=== PATIENT | male | born 1975 | race American Indian/Alaskan Native ===

== ENCOUNTER 2016-08-28 00:09 | Emergency (ER) | payer SELFPAY ==
--- NOTE | 2016-08-28 01:03 | Ultrasound Report ---
FINAL REPORT PROCEDURE: US TESTICULAR DOPPLER COMP TECHNIQUE: Real-time henson-scale and color flow Doppler sonography in multiple planes of the scrotum, testicles, and epididymes was performed. Velocity spectral waveform analysis Doppler imaging of the arterial inflow and venous outflow of the testicles was performed with image documentation. CPT 80558 and 43021 HISTORY: TESTICULAR PAIN COMPARISON: No prior studies are available for comparison. FINDINGS: RIGHT TESTICLE: Size: 3.8 x 1.8 x 3.0 cm . Appearance: Normal size and echotexture . Arterial blood flow: Normal spectral waveforms, flow velocities and color flow images.. Venous blood flow: Normal spectral waveforms and color flow images. Right epididymis: Normal size and echotexture . Hydrocele: None . LEFT TESTICLE Size: 4 x 2.8 x 2.6 cm . Appearance: Normal size and echotexture . Arterial blood flow: Normal spectral waveforms, flow velocities and color flow images.. Venous blood flow: Normal spectral waveforms and color flow images. Leftepididymis: Left epididymis is enlarged and heterogeneous suggesting epididymitis.. Hydrocele: There is a moderate left hydrocele.. IMPRESSION: There is no testicular torsion, orchitis or mass. Blood flow is normal. There is enlargement and hyperemia of the left epididymis and there is a left hydrocele suggesting left epididymitis.
[2016-08-28] MEDS ORDERED: TYLENOL PO ONE (01:25)
[2016-08-28] MEDS ORDERED: TYLENOL ONE (01:26)
--- NOTE | 2016-08-28 09:49 | Emergency Department Report ---
ED General Adult HPI - General Chief complaint: Urogenital-Male Stated complaint: GROIN PAIN Time Seen by Provider: 08/28/16 09:45 Source: patient Mode of arrival: Wheelchair Limitations: No Limitations - History of Present Illness Initial comments: The patient reports left testicular swelling for at least one week. This is his first medical encounter. He feels as if he might of had a fever but did not take his temperature. He reports no difficulty in urinating or any urethral discharge. He states he's not had anything like this before. -: Gradual Location: genitals, left Radiation: non-radiation Quality: aching Consistency: constant Improves with: none Worsens with: none Associated Symptoms: denies other symptoms Treatments Prior to Arrival: none - Related Data Previous Rx's Medication Instructions Recorded Last Taken Type Doxycycline [Vibramycin CAP] 100 mg PO Q12HR #20 capsule 08/28/16 Unknown Rx HYDROcodone/APAP 5-325 [Clyde 1 each PO Q4HR PRN #10 tablet 08/28/16 Unknown Rx 5/325] Allergies Allergy/AdvReac Type Severity Reaction Status Date / Time No Known Allergies Allergy Unverified 09/12/13 13:49 ED Review of Systems ROS: Stated complaint: GROIN PAIN Other details as noted in HPI Constitutional: denies: chills, fever Eyes: denies: eye pain, eye discharge, vision change ENT: denies: ear pain, throat pain Respiratory: denies: cough, shortness of breath, wheezing Cardiovascular: denies: chest pain, palpitations Endocrine: no symptoms reported Gastrointestinal: denies: abdominal pain, nausea, diarrhea Genitourinary: denies: urgency, dysuria Musculoskeletal: denies: back pain, joint swelling, arthralgia Skin: denies: rash, lesions Neurological: denies: headache, weakness, paresthesias Psychiatric: denies: anxiety, depression Hematological/Lymphatic: denies: easy bleeding, easy bruising ED Past Medical Hx - Past Medical History Previous Medical History?: Yes Hx Asthma: Yes Additional medical history: Right wrist fx. - Surgical History Past Surgical History?: Yes Additional Surgical History: Umbilical hernia - Social History Smoking Status: Current Every Day Smoker Substance Use Type: None - Medications Home Medications: Home Medications Medication Instructions Recorded Confirmed Last Taken Type Doxycycline [Vibramycin CAP] 100 mg PO Q12HR #20 capsule 06/10/17 Unknown Rx HYDROcodone/APAP 5-325 [Clyde 1 each PO Q4HR PRN #10 tablet 08/28/16 Unknown Rx 5/325] ED Physical Exam - General Limitations: No Limitations General appearance: alert, in no apparent distress - Head Head exam: Present: atraumatic, normocephalic - Eye Eye exam: Present: normal appearance. Absent: scleral icterus - ENT ENT exam: Present: normal exam, mucous membranes moist - Neck Neck exam: Present: normal inspection - Respiratory Respiratory exam: Present: normal lung sounds bilaterally. Absent: respiratory distress - Cardiovascular Cardiovascular Exam: Present: regular rate, normal rhythm. Absent: systolic murmur, diastolic murmur, rubs, gallop - GI/Abdominal GI/Abdominal exam: Present: soft, normal bowel sounds. Absent: distended, tenderness, guarding, rebound, rigid - Rectal Rectal exam: Present: deferred - exam: Present: testicular tenderness (epididymal swelling on the left about 2 +. Nothing fluctuant. Scrotum normal.) External exam: Present: normal external exam - Extremities Exam Extremities exam: Present: normal inspection - Back Exam Back exam: Present: normal inspection. Absent: CVA tenderness (R), CVA tenderness (L) - Neurological Exam Neurological exam: Present: alert, oriented X3, CN II-XII intact. Absent: motor sensory deficit - Psychiatric Psychiatric exam: Present: normal affect, normal mood - Skin Skin exam: Present: warm, dry, intact, normal color. Absent: rash ED Course Vital Signs 08/28/16 08/28/16 08/28/16 00:17 03:36 08:25 Temperature 98.5 F 97.6 F 97.5 F L Pulse Rate 86 81 93 H Respiratory 18 18 18 Rate Blood Pressure 129/85 132/96 136/84 Blood Pressure [Left] O2 Sat by Pulse 97 96 98 Oximetry 08/28/16 08/28/16 09:00 09:01 Temperature 97.6 F Pulse Rate 72 Respiratory 18 Rate Blood Pressure Blood Pressure 132/81 [Left] O2 Sat by Pulse 99 99 Oximetry ED Medical Decision Making - Radiology Data Radiology results: report reviewed Critical care attestation.: If time is entered above; I have spent that time in minutes in the direct care of this critically ill patient, excluding procedure time. ED Disposition Clinical Impression: Epididymitis, left Disposition: DC-01 TO HOME OR SELFCARE Is pt being admited?: No Does the pt Need Aspirin: No Condition: Stable Instructions: Epididymitis (ED) Additional Instructions: Return any acute change or worsening symptoms. Referral to urology. Follow-up with them. Prescriptions: Doxycycline [Vibramycin CAP] 100 mg PO Q12HR #20 capsule HYDROcodone/APAP 5-325 [Clyde 5/325] 1 each PO Q4HR PRN #10 tablet PRN Reason: Pain Referrals: PRIMARY CARE,MD [Primary Care Provider] - 3-5 Days Forms: STI Treatment and Prevention Time of Disposition: 10:21
[2016-08-28] MEDS ORDERED: TORADOL IM ONE (09:58)
[2016-08-28] MEDS ORDERED: XYLOCAINE 1% MPF 5 mL INFILTRATI ONE (09:58)
[2016-08-28] MEDS ORDERED: ROCEPHIN IM ONE (09:58)
[2016-08-28 11:32] VITALS: BP 109/68
== END 2016-08-28 11:33 | disposition home or self-care (01) ==
LOC: ED 00:09
DX: N45.1 Epididymitis (principal); J45.909 Unspecified asthma, uncomplicated; F17.200 Nicotine dependence, unspecified, uncomplicated
CPT/HCPCS: 93975; 96372; 99284; J0696; J1885

== ENCOUNTER 2017-10-01 00:12 | Inpatient (IN) | payer OTHER ==
--- NOTE | 2017-10-01 00:34 | Emergency Department Report ---
ED Neuro Deficit HPI - General Chief Complaint: Neuro Symptoms/Deficit Stated Complaint: POSS STROKE Time Seen by Provider: 10/01/17 00:25 Source: patient, EMS Mode of arrival: Stretcher Limitations: Physical Limitation - History of Present Illness Initial Comments: Patient is a 42-year-old male that presents to emergency room with complaints of right-sided weakness and right-sided numbness 19 hours. Last known well time at 5 AM on 09/30/17. Patient states that he was nauseous and vomiting for approximately an hour before symptoms started. Patient left work and went home and tried to sleep it off. When patient woke up this evening patient is still unable to move his right side normally. Patient denies chest pain and shortness of breath. Patient denies fever and chills. c/o abd pain -: Sudden Location: right arm, right leg Presenting Symptoms: Present: Weak/Paralyzed One Side History of same: No Place: home, work Severity: severe Quality: weak, numb, tingling, constant Improves With: none Worsens With: none On Anticoagulants: No Context: sudden onset Associated Symptoms: loss of appetite, malise, nausea/vomiting, vertigo. denies : confusion, chest pain, cough, diaphoresis, fever/chills, headaches, seizures, shortness of breath, syncope, weakness Treatments Prior to Arrival: none - Related Data Allergies/Adverse Reactions: Allergies Allergy/AdvReac Type Severity Reaction Status Date / Time No Known Allergies Allergy Unverified 09/12/13 13:49 ED Review of Systems ROS: Stated complaint: POSS STROKE Other details as noted in HPI Constitutional: denies: chills, fever Eyes: denies: eye pain, eye discharge, vision change ENT: denies: ear pain, throat pain Respiratory: denies: cough, shortness of breath, wheezing Cardiovascular: denies: chest pain, palpitations Endocrine: no symptoms reported Gastrointestinal: abdominal pain, nausea, vomiting. denies: diarrhea Genitourinary: denies: urgency, dysuria Musculoskeletal: denies: back pain, joint swelling, arthralgia Skin: denies: rash, lesions Neurological: denies: headache, weakness, paresthesias Psychiatric: denies: anxiety, depression Hematological/Lymphatic: denies: easy bleeding, easy bruising ED Past Medical Hx - Past Medical History Previous Medical History?: Yes Hx Asthma: Yes Additional medical history: Right wrist fx. - Surgical History Past Surgical History?: Yes Additional Surgical History: Umbilical hernia, testicular torsion 2016 - Social History Smoking Status: Current Every Day Smoker Substance Use Type: Marijuana ED Neuro Physical Exam - General Limitations: Physical Limitation General appearance: alert, in no apparent distress Suspected Stroke: Yes - Head Head exam: Present: atraumatic, normocephalic - Eye Eye exam: Present: normal appearance, PERRL, EOMI Pupils: Present: normal accommodation - ENT ENT exam: Present: mucous membranes dry - Neck Neck exam: Present: normal inspection - Respiratory Respiratory exam: Present: normal lung sounds bilaterally. Absent: respiratory distress - Cardiovascular Cardiovascular Exam: Present: regular rate, normal rhythm. Absent: systolic murmur, diastolic murmur, rubs, gallop - GI/Abdominal GI/Abdominal exam: Present: soft, normal bowel sounds - Rectal Rectal exam: Present: deferred - Extremities Exam Extremities exam: Present: normal inspection - Back Exam Back exam: Present: normal inspection - Neurological Exam Neurological exam: Present: alert, oriented X3 - NIHSS Assessment Interval: Baseline 1a. Level of Consciousness: alert 1b. LOC Questions: answers correctly 1c. LOC Commands: performs tasks correctly 2. Best Gaze: normal 3. Visual: no visual loss 4. Facial Palsy: normal symmetrical movement 5b. Motor Arm Right: drift 5a. Motor Arm Left: no drift 6a. Motor Leg Left: no drift 6b. Motor Leg Right: drift 7. Limb Ataxia: absent 8. Sensory: mild/moderate sensory loss 9. Best Language: no aphasia 10. Dysarthria: normal 11. Extinction/Inattention: no abnormality Total Score: 3 Stroke Severity: Minor Stroke - Psychiatric Psychiatric exam: Present: normal affect, normal mood - Skin Skin exam: Present: warm, dry, intact, normal color. Absent: rash ED Course Vital Signs 10/01/17 10/01/17 10/01/17 00:00 00:15 00:16 Temperature 98 F Pulse Rate 74 55 L Respiratory 17 20 Rate Blood Pressure 132/89 132/89 O2 Sat by Pulse 97 97 97 Oximetry 10/01/17 10/01/17 10/01/17 00:30 00:46 01:00 Temperature Pulse Rate 54 L 58 L 59 L Respiratory 14 19 16 Rate Blood Pressure 132/89 137/63 137/63 O2 Sat by Pulse 100 96 98 Oximetry 10/01/17 10/01/17 10/01/17 01:16 01:27 01:30 Temperature Pulse Rate 54 L 54 L Respiratory 13 15 9 L Rate Blood Pressure 137/63 129/68 O2 Sat by Pulse 99 97 97 Oximetry 10/01/17 10/01/17 10/01/17 02:05 02:16 02:30 Temperature Pulse Rate 53 L 52 L Respiratory 18 25 H Rate Blood Pressure 129/68 131/80 126/77 O2 Sat by Pulse 98 99 99 Oximetry 10/01/17 10/01/17 10/01/17 02:46 03:00 03:16 Temperature Pulse Rate 61 58 L 62 Respiratory 15 11 L 16 Rate Blood Pressure 126/77 126/77 141/81 O2 Sat by Pulse 100 100 96 Oximetry 10/01/17 10/01/17 10/01/17 03:30 03:46 04:00 Temperature Pulse Rate 56 L 55 L 56 L Respiratory 13 20 15 Rate Blood Pressure 120/52 120/52 120/52 O2 Sat by Pulse 97 96 96 Oximetry 10/01/17 10/01/17 10/01/17 04:16 04:30 04:46 Temperature Pulse Rate 53 L 54 L 60 Respiratory 18 18 16 Rate Blood Pressure 120/52 138/73 138/73 O2 Sat by Pulse 96 97 96 Oximetry 10/01/17 10/01/17 10/01/17 05:00 05:16 05:30 Temperature Pulse Rate 54 L 53 L 60 Respiratory 18 18 15 Rate Blood Pressure 129/75 129/75 139/78 O2 Sat by Pulse 95 97 96 Oximetry 10/01/17 10/01/17 05:46 06:00 Temperature Pulse Rate 60 61 Respiratory 14 15 Rate Blood Pressure 139/78 139/78 O2 Sat by Pulse 99 97 Oximetry - Reevaluation(s) Reevaluation #1: Stroke order set ordered. We'll get CT and consult tele-neuro./ 10/01/17 00:35 Reevaluation #2: Stress case with Jose romero, Dr Armendariz. per Dr. armendariz, patient is outside the window for TPA, he recommends patient admission to the hospital and further workup for possible stroke. 10/01/17 02:09 Reevaluation #3: Vision not vomiting. CT head negative. Abdominal CT is still pending 10/01/17 03:11 Reevaluation #4: CT abdomen results are back. No acute findings on abdomen. 10/01/17 06:49 Reevaluation #5: Hospital was consulted for admission. Hospitalist to assume care. Case discussed with Dr. Law.. Patient agrees with admission. Plan of care and admission discussed with patient. Results discussed with the patient. 10/01/17 06:49 - Lab Data Result diagrams: 10/01/17 00:58 10/01/17 00:58 Lab Results 10/01/17 10/01/17 10/01/17 Range/Units 00:39 00:58 00:58 WBC 9.3 (4.5-11.0) K/mm3 RBC 4.97 (3.65-5.03) M/mm3 Hgb 15.6 H (11.8-15.2) gm/dl Hct 47.3 H (35.5-45.6) % MCV 95 H (84-94) fl MCH 31 (28-32) pg MCHC 33 (32-34) % RDW 12.8 L (13.2-15.2) % Plt Count 251 (140-440) K/mm3 Lymph % (Auto) 10.4 L (13.4-35.0) % Harvey % (Auto) 5.2 (0.0-7.3) % Eos % (Auto) 0.4 (0.0-4.3) % Baso % (Auto) 0.3 (0.0-1.8) % Lymph # 1.0 L (1.2-5.4) K/mm3 Harvey # 0.5 (0.0-0.8) K/mm3 Eos # 0.0 (0.0-0.4) K/mm3 Baso # 0.0 (0.0-0.1) K/mm3 Seg Neutrophils % 83.7 H (40.0-70.0) % Seg Neutrophils # 7.8 H (1.8-7.7) K/mm3 PT 13.1 (12.2-14.9) Sec. INR 0.95 (0.87-1.13) APTT 26.0 (24.2-36.6) Sec. Thrombin Time 17.0 (15.1-19.6) Sec. Sodium (137-145) mmol/L Potassium (3.6-5.0) mmol/L Chloride (98-107) mmol/L Carbon Dioxide (22-30) mmol/L Anion Gap mmol/L BUN (9-20) mg/dL Creatinine (0.8-1.5) mg/dL Estimated GFR ml/min BUN/Creatinine Ratio % Glucose (75-100) mg/dL POC Glucose 142 H (70-105) Calcium (8.4-10.2) mg/dL Total Bilirubin (0.1-1.2) mg/dL AST (5-40) units/L ALT (7-56) units/L Alkaline Phosphatase (35-129) units/L Troponin T (0.00-0.029) ng/mL Total Protein (6.3-8.2) g/dL Albumin (3.9-5) g/dL Albumin/Globulin Ratio % Urine Color (Yellow) Urine Turbidity (Clear) Urine pH (5.0-7.0) Ur Specific Austin (1.003-1.030) Urine Protein (Negative) mg/dL Urine Glucose (UA) (Negative) mg/dL Urine Ketones (Negative) mg/dL Urine Blood (Negative) Urine Nitrite (Negative) Urine Bilirubin (Negative) Urine Urobilinogen (<2.0) mg/dL Ur Leukocyte Esterase (Negative) Urine WBC (Auto) (0.0-6.0) /HPF Urine RBC (Auto) (0.0-6.0) /HPF U Epithel Cells (Auto) (0-13.0) /HPF Urine Mucus /HPF Urine Opiates Screen Urine Methadone Screen Ur Barbiturates Screen Ur Phencyclidine Scrn Ur Amphetamines Screen U Benzodiazepines Scrn Urine Cocaine Screen U Marijuana (THC) Screen Drugs of Abuse Note 10/01/17 10/01/17 10/01/17 Range/Units 00:58 00:58 05:43 WBC (4.5-11.0) K/mm3 RBC (3.65-5.03) M/mm3 Hgb (11.8-15.2) gm/dl Hct (35.5-45.6) % MCV (84-94) fl MCH (28-32) pg MCHC (32-34) % RDW (13.2-15.2) % Plt Count (140-440) K/mm3 Lymph % (Auto) (13.4-35.0) % Harvey % (Auto) (0.0-7.3) % Eos % (Auto) (0.0-4.3) % Baso % (Auto) (0.0-1.8) % Lymph # (1.2-5.4) K/mm3 Harvey # (0.0-0.8) K/mm3 Eos # (0.0-0.4) K/mm3 Baso # (0.0-0.1) K/mm3 Seg Neutrophils % (40.0-70.0) % Seg Neutrophils # (1.8-7.7) K/mm3 PT (12.2-14.9) Sec. INR (0.87-1.13) APTT (24.2-36.6) Sec. Thrombin Time (15.1-19.6) Sec. Sodium 144 (137-145) mmol/L Potassium 3.9 (3.6-5.0) mmol/L Chloride 102.1 (98-107) mmol/L Carbon Dioxide 27 (22-30) mmol/L Anion Gap 19 mmol/L BUN 12 (9-20) mg/dL Creatinine 0.9 (0.8-1.5) mg/dL Estimated GFR > 60 ml/min BUN/Creatinine Ratio 13 % Glucose 145 H (75-100) mg/dL POC Glucose (70-105) Calcium 10.3 H (8.4-10.2) mg/dL Total Bilirubin 0.40 (0.1-1.2) mg/dL AST 29 (5-40) units/L ALT 31 (7-56) units/L Alkaline Phosphatase 78 (35-129) units/L Troponin T < 0.010 (0.00-0.029) ng/mL Total Protein 7.5 (6.3-8.2) g/dL Albumin 4.6 (3.9-5) g/dL Albumin/Globulin Ratio 1.6 % Urine Color Yellow (Yellow) Urine Turbidity Clear (Clear) Urine pH 5.0 (5.0-7.0) Ur Specific [place] 1.024 (1.003-1.030) Urine Protein <15 mg/dl (Negative) mg/dL Urine Glucose (UA) Neg (Negative) mg/dL Urine Ketones Neg (Negative) mg/dL Urine Blood Neg (Negative) Urine Nitrite Neg (Negative) Urine Bilirubin Neg (Negative) Urine Urobilinogen < 2.0 (<2.0) mg/dL Ur Leukocyte Esterase Neg (Negative) Urine WBC (Auto) 1.0 (0.0-6.0) /HPF Urine RBC (Auto) 3.0 (0.0-6.0) /HPF U Epithel Cells (Auto) 1.0 (0-13.0) /HPF Urine Mucus Few /HPF Urine Opiates Screen Urine Methadone Screen Ur Barbiturates Screen Ur Phencyclidine Scrn Ur Amphetamines Screen U Benzodiazepines Scrn Urine Cocaine Screen U Marijuana (THC) Screen Drugs of Abuse Note 10/01/17 Range/Units 05:43 WBC (4.5-11.0) K/mm3 RBC (3.65-5.03) M/mm3 Hgb (11.8-15.2) gm/dl Hct (35.5-45.6) % MCV (84-94) fl MCH (28-32) pg MCHC (32-34) % RDW (13.2-15.2) % Plt Count (140-440) K/mm3 Lymph % (Auto) (13.4-35.0) % Harvey % (Auto) (0.0-7.3) % Eos % (Auto) (0.0-4.3) % Baso % (Auto) (0.0-1.8) % Lymph # (1.2-5.4) K/mm3 Harvey # (0.0-0.8) K/mm3 Eos # (0.0-0.4) K/mm3 Baso # (0.0-0.1) K/mm3 Seg Neutrophils % (40.0-70.0) % Seg Neutrophils # (1.8-7.7) K/mm3 PT (12.2-14.9) Sec. INR (0.87-1.13) APTT (24.2-36.6) Sec. Thrombin Time (15.1-19.6) Sec. Sodium (137-145) mmol/L Potassium (3.6-5.0) mmol/L Chloride (98-107) mmol/L Carbon Dioxide (22-30) mmol/L Anion Gap mmol/L BUN (9-20) mg/dL Creatinine (0.8-1.5) mg/dL Estimated GFR ml/min BUN/Creatinine Ratio % Glucose (75-100) mg/dL POC Glucose (70-105) Calcium (8.4-10.2) mg/dL Total Bilirubin (0.1-1.2) mg/dL AST (5-40) units/L ALT (7-56) units/L Alkaline Phosphatase (35-129) units/L Troponin T (0.00-0.029) ng/mL Total Protein (6.3-8.2) g/dL Albumin (3.9-5) g/dL Albumin/Globulin Ratio % Urine Color (Yellow) Urine Turbidity (Clear) Urine pH (5.0-7.0) Ur Specific [place] (1.003-1.030) Urine Protein (Negative) mg/dL Urine Glucose (UA) (Negative) mg/dL Urine Ketones (Negative) mg/dL Urine Blood (Negative) Urine Nitrite (Negative) Urine Bilirubin (Negative) Urine Urobilinogen (<2.0) mg/dL Ur Leukocyte Esterase (Negative) Urine WBC (Auto) (0.0-6.0) /HPF Urine RBC (Auto) (0.0-6.0) /HPF U Epithel Cells (Auto) (0-13.0) /HPF Urine Mucus /HPF Urine Opiates Screen Presumptive negative Urine Methadone Screen Presumptive negative Ur Barbiturates Screen Presumptive negative Ur Phencyclidine Scrn Presumptive negative Ur Amphetamines Screen Presumptive negative U Benzodiazepines Scrn Presumptive negative Urine Cocaine Screen Presumptive negative U Marijuana (THC) Screen Presumptive positive Drugs of Abuse Note Disclamer - EKG Data -: EKG Interpreted by Ut EKG shows normal: sinus rhythm, axis, intervals, QRS complexes, ST-T waves Rate: bradycardia - Radiology Data Radiology results: report reviewed interpreted by me: Head CT negative. Abdominal CT negative. - Medical Decision Making Patient is a 42-year-old male presents to emergency room with 24 hours not vomiting and 14 hours of right-sided weakness. Patient is outside the window for any aggressive treatment for with TPA. Hospitalist to admit the patient for further evaluation and treatment. Neurologist consulted and recommends in- hospital stroke workup. - Differential Diagnosis cva. weakness. electolyte imbalance. Gastro- Critical Care Time: Yes Critical care attestation.: If time is entered above; I have spent that time in minutes in the direct care of this critically ill patient, excluding procedure time. Critical Care Time: 45 minutes spent for cc time ED Disposition Clinical Impression: Right sided weakness, Gastroenteritis Nausea & vomiting Qualifiers: Vomiting type: unspecified Vomiting Intractability: intractable Qualified Code( s): R11.2 - Nausea with vomiting, unspecified Abdominal pain Qualifiers: Abdominal location: generalized Qualified Code(s): R10.84 - Generalized abdominal pain Stroke Qualifiers: CVA mechanism: unspecified Qualified Code(s): I63.9 - Cerebral infarction, unspecified Disposition: DC-09 OP ADMIT IP TO THIS HOSP Is pt being admited?: Yes Does the pt Need Aspirin: No Condition: Critical Time of Disposition: 06:51
[2017-10-01] MEDS ORDERED: ZOFRAN ONE (00:48)
[2017-10-01] MEDS ORDERED: ZOFRAN IV ONE (00:52)
[2017-10-01 01:12] LABS: Basophils % (Auto) 0.3 % (0.0-1.8); Eosinophils % (Auto) 0.4 % (0.0-4.3); Hematocrit 47.3 % (35.5-45.6); Hemoglobin 15.6 gm/dl (11.8-15.2); Lymphocytes % (Auto) 10.4 % (13.4-35.0); Mean Corpuscular HGB Conc 33 % (32-34); Mean Corpuscular Hemoglobin 31 pg (28-32); Mean Corpuscular Volume 95 fl (84-94); Monocytes # (Auto) 0.5 K/mm3 (0.0-0.8); Monocytes % (Auto) 5.2 % (0.0-7.3); Red Blood Count 4.97 M/mm3 (3.65-5.03); Red Cell Distribution Width 12.8 % (13.2-15.2)
[2017-10-01 01:13] LABS: Platelet Count 251 K/mm3 (140-440)
[2017-10-01 01:32] LABS: Alanine Aminotransferase 31 units/L (7-56); Albumin 4.6 g/dL (3.9-5); BUN/Creatinine Ratio 13; Blood Urea Nitrogen 12 mg/dL (9-20); Calcium 10.3 mg/dL (8.4-10.2); Hemolysis Index 3
[2017-10-01 01:36] LABS: INR 0.95 (0.87-1.13)
--- NOTE | 2017-10-01 02:56 | Cat Scan Report ---
FINAL REPORT EXAM: CT Head w/o Contrast CLINICAL INDICATIONS: NEURO DEFICITS FINDINGS: Axial images of the head were obtained without intravenous contrast. Ventricles are normal in size and configuration. There is no evidence of intracranial hemorrhage or hematoma. No intracranial mass or mass effect. No abnormal intra-or extra-axial fluid collections. There is no evidence of edema or sulcal effacement. The calvarium is intact. Visualized paranasal sinuses and mastoid air cells are clear. IMPRESSION: NO EVIDENCE OF ACUTE INTRACRANIAL PATHOLOGY.
[2017-10-01 06:27] LABS: Bilirubin,Urine NEG (Negative); Blood,Urine NEG (Negative); Color,Urine Yellow (Yellow); Mucus,Urine FEW /HPF; Protein,Urine <15 mg/dL mg/dL (Negative); Urobilinogen,Urine < 2.0 mg/dL (<2.0)
[2017-10-01 06:32] LABS: Amphetamine Screen,Urine PRESUMPTIVE NEGATIVE; Benzodiazepines Screen,Urine PRESUMPTIVE NEGATIVE; Cocaine Screen,Urine PRESUMPTIVE NEGATIVE; Methadone Screen,Urine PRESUMPTIVE NEGATIVE; Opiate Screen,Urine PRESUMPTIVE NEGATIVE
--- NOTE | 2017-10-01 06:39 | Cat Scan Report ---
FINAL REPORT EXAM: CT ABDOMEN PELVIS WO CON HISTORY: n/v TECHNIQUE: CT images obtained through the Abdomen and Pelvis without contrast. Transaxial,coronal and sagittal reformats are provided. PRIORS: None. FINDINGS: Imaged intrathoracic contents are remarkable for coronary artery disease. Kidneys are normal in size, axis and position. No hydronephrosis or nephrolithiasis. The ureters are normal in course and caliber. No stones are seen within the urinary bladder. The liver, gallbladder, pancreas, spleen, and adrenal glands demonstrate an unremarkable noncontrast appearance. Hollow enteric organs are normal in course and caliber. Appendix is normal. No intra-abdominal free air/fluid or lymphadenopathy. Aorta is normal in course and caliber. Superficial soft tissues are unremarkable. No acute or aggressive appearing skeletal findings. IMPRESSION: No acute findings in the abdomen or pelvis. Coronary artery disease.
[2017-10-01 06:49] LABS: Cannabinoid Screen,Urine PRESUMPTIVE POSITIVE
--- NOTE | 2017-10-01 08:07 | History and Physical Report ---
History of Present Illness Date of examination: 10/01/17 Date of admission: 10/01/17 Chief complaint: Right-sided weakness - overall 19 hours ago History of present illness: Patient is a 42-year-old male that presents to emergency room with complaints of right-sided weakness and right-sided numbness 19 hours. Last known well time at 5 AM on 09/30/17. Patient states that he was nauseous and vomiting for approximately an hour before symptoms started. Patient left work and went home and tried to sleep it off. When patient woke up this evening patient is still unable to move his right side normally. Patient denies any slurred speech. No facial droop. No headache. Patient also denies chest pain and shortness of breath. Patient denies fever and chills. c/o abd pain. On presentation to the emergency department, CT scan of the brain was normal. CT abdomen and pelvis because of nausea vomiting showed negative evidence of intra-abdominal lesions. Had evidence of carotid disease. Admission was therefore requested. Past History Past Medical History: other (asthma, history of right wrist fracture, umbilical hernia, testicular torsion 2017.) Past Surgical History: Other (An testicular torsion) Medications and Allergies Allergies Allergy/AdvReac Type Severity Reaction Status Date / Time No Known Allergies Allergy Unverified 09/12/13 13:49 Active Meds: Review of systems Constitutional: Well Nouridhed and Well developed. Head: NC/ AT Eyes: Denies any visual impairments. No discharge from the eyes Nose: Denies any rhinorrhea or epistaxis Throats: Denies any post nasal drainage. Ears: Denies any hearing deficits Cardiovascular system: Denies any chest pain, shortness of breath, orthopnea, paroxysmal nocturnal dyspnea, or palpitation. Respiratory system: Denies any cough, difficulty breathing, wheezing, pleuritic chest pain, Gastrointestinal system: Denies any abdominal pain, nausea vomiting, hematemesis or melena. Neurological system: Right-sided weakness. Denies any headache, slurred speech , facial droop, Genitalia system: Denies any dysuria, urinary frequency or urgency, urethral discharge Skin: No rashes, hyperpigmented spots. Hematological: Denies any cervical tenderness hemorrhages or petechia. Immunological: Denies any multiple septic spots, Lymphatic: Denies any generalized lymphadenopathy. Endocrine: Denies any polyuria, polydipsia, polyphagia. No heat or cold intolerance. Musculoskeletal system: No joint pain or swelling. Psych: No visual, tactile, auditory or hallucination Exam - Physical Exam Narrative exam: Constitutional: Well-nourished well-developed. In no distress Head: Normocephalic atraumatic Eyes: Pupils are equal round and reactive to light Nose: No enlarged turbinates, no septal deviation. Mouth: Moist mucous membranes. Neck: Supple no thyromegaly. No bruit. No JVD Heart: Regular rate and rhythm, S1-S2 abnormal. No rubs murmurs or gallop Lungs: Clear to auscultation bilaterally no rales or rhonchi Abdomen: Soft, nontender. Bowel sound are present. Extremities: No edema no cyanosis and no clubbing. Neuro: Right-sided weakness . Alert and Oriented x3. Second to 12th cranial nerves were grossly intact. Skin: No rashes no hyperemic spots Psychiatry: Euthymic. Calm. - Constitutional Vitals: Temp Pulse Resp BP Pulse Ox 98 F 61 15 139/78 97 10/01/17 00:15 10/01/17 06:00 10/01/17 06:00 10/01/17 06:00 10/01/17 06:00 Results - Labs CBC & Chem 7: 10/01/17 00:58 10/01/17 00:58 Labs: Abnormal lab results 10/01/17 10/01/17 10/01/17 Range/Units 00:39 00:58 00:58 Hgb 15.6 H (11.8-15.2) gm/dl Hct 47.3 H (35.5-45.6) % MCV 95 H (84-94) fl RDW 12.8 L (13.2-15.2) % Lymph % (Auto) 10.4 L (13.4-35.0) % Lymph # 1.0 L (1.2-5.4) K/mm3 Seg Neutrophils % 83.7 H (40.0-70.0) % Seg Neutrophils # 7.8 H (1.8-7.7) K/mm3 Glucose 145 H (75-100) mg/dL POC Glucose 142 H (70-105) Calcium 10.3 H (8.4-10.2) mg/dL - Imaging and Cardiology CT scan - abdomen: report reviewed CT Scan - head: report reviewed Assessment and Plan Admits to telemetry -Acute cerebrovascular accident Comments patient on stroke protocol with MRI of the brain, MRI/MRA of the neck and brain. Echocardiogram of the heart. PT OT ST evaluation and treatment. IV hydration Obtain TSH level and lipid panel B12 and folic acid levels. Serial neuro checks Commence patient on aspirin and atorvastatin. - Polycythemia Serial H&H. IV hydration. Hematologic consults. - Hypercalcemia IV normal saline Monitor Ca+ levels - Hypoglycemia Obtain A1c Monitor glycemic level - Tobacco use disorder Consistent progressive addition done. - Developed prophylaxis with Lovenox and GI with Pepcid Laboratory radiological data spent 40 minutes during this admission process in direct patient care, laboratory and radiological data.
[2017-10-01] MEDS: ASPIRIN PO SCH (10:20)
[2017-10-01] MEDS: LOVENOX SUB-Q SCH (12:22)
--- NOTE | 2017-10-01 14:34 | Magnetic Resonance Report ---
FINAL REPORT PROCEDURE: MR MRA/MRV HEAD WO CON TECHNIQUE: Axial 3-D [id number] MR angiography of the [place] and brain was performed. The source images were reconstructed in various views using maximum intensity projection. HISTORY: stroke COMPARISON: No prior studies are available for comparison. FINDINGS: Visualized portions of the internal carotid arteries appear widely patent. Carotid siphons, A1 segments and anterior cerebral arteries as well as the middle cerebral arteries appear widely patent without occlusion, significant stenosis or changes that would suggest aneurysm or vascular malformation. Posterior circulation also appears intact. Visualized portions of the vertebral arteries appear patent. There is a dominant left vertebral artery, normal variant. Basilar artery appears widely patent. Posterior cerebral arteries are also widely patent. IMPRESSION: Negative exam. Anterior and posterior circulation appear intact and are widely patent.
--- NOTE | 2017-10-01 14:42 | Magnetic Resonance Report ---
FINAL REPORT PROCEDURE: MR BRAIN WO CON TECHNIQUE: Magnetic resonance imaging of the brain was performed without contrast material. HISTORY: stroke COMPARISON: Prior CT scan of the brain 10/01/2017 FINDINGS: There is no evidence of intracranial hemorrhage. No parenchymal hemorrhage, mass lesion or mass effect is seen. There is a small linear band of increased T2 signal as well as restricted diffusion and decreased signal on the ADC mapping visualized in the posterior lateral aspect right side of the ellen image 12 series 4 axial image. The appearance is consistent with acute linear lacunar infarct. This is located near the origin of the right trigeminal nerve. The signal intensity from the substance of the brain otherwise appears normal with normal henson-white matter differentiation. The ventricles are normal size and are midline. No abnormal extra-axial fluid collections or masses are seen. Corpus callosum, region of the pituitary fossa and foramen magnum appear normal. Paranasal sinuses and mastoid air cells are clear IMPRESSION: Small acute linear lacunar infarction posterior lateral aspect right side of the ellen. No other abnormality is seen. Critical value: I discussed these findings in detail with SANDRA Negro by phone conversation with on 10/01/2017 at 2:26 p.m. [place] standard time.
[2017-10-01] MEDS: NACL 0.9% 1000 ML 2,000 ML IV SCH ×2 (18:25→22:00)
[2017-10-02 05:54] LABS: Basophils % (Auto) 0.1 % (0.0-1.8); Eosinophils % (Auto) 0.2 % (0.0-4.3); Hematocrit 44.2 % (35.5-45.6); Hemoglobin 14.8 gm/dl (11.8-15.2); Lymphocytes # (Auto) 1.4 K/mm3 (1.2-5.4); Lymphocytes % (Auto) 15.4 % (13.4-35.0); Mean Corpuscular HGB Conc 34 % (32-34); Mean Corpuscular Hemoglobin 32 pg (28-32); Mean Corpuscular Volume 94 fl (84-94); Monocytes # (Auto) 0.7 K/mm3 (0.0-0.8); Monocytes % (Auto) 7.3 % (0.0-7.3); Platelet Count 221 K/mm3 (140-440); Red Cell Distribution Width 13.2 % (13.2-15.2)
[2017-10-02 06:17] LABS: Albumin 3.7 g/dL (3.9-5); BUN/Creatinine Ratio 15; Blood Urea Nitrogen 12 mg/dL (9-20); Calcium 9.1 mg/dL (8.4-10.2); Hemolysis Index 124
[2017-10-02 06:28] LABS: Alanine Aminotransferase 26 units/L (7-56)
[2017-10-02 06:38] LABS: Chol/HDL Ratio 4.19 %; HDL Cholesterol 31 mg/dL (40-59); LDL Cholesterol,Direct 78 mg/dL (50-130)
[2017-10-02] MEDS: NACL 0.9% 1000 ML 2,000 ML IV SCH ×2 (06:47→17:40)
[2017-10-02] MEDS: LOVENOX SUB-Q SCH (11:54)
[2017-10-02] MEDS: ASPIRIN PO SCH (11:54)
[2017-10-02] MEDS: TENORMIN PO SCH (11:54)
--- NOTE | 2017-10-02 15:13 | Progress Note ---
Assessment and Plan - Patient Problems (1) Acute CVA (cerebrovascular accident) Current Visit: Yes Status: Acute Plan to address problem: Patient with acute CVA right arm hemiparesis. Patient will require physical therapy. He is a great candidate for rehabilitation. We'll also need her the evaluation about etiology of the stroke. Could be hypertension. I have started patient on atenolol low dose beta betito as well as aspirin and hyperlipidemia therapy. Patient may also require hypercoagulable workup. Blood pressure was not extremely bad and patient's mother had a CVA as well. He done on outpatient. (2) Hypertension associated with chronic kidney disease due to type 1 diabetes mellitus Current Visit: Yes Status: Acute Plan to address problem: Start patient on atenolol. Await PT OT evaluation. case management aware. History Interval history: Patient still has significant loss of the use of right arm. Poor hand platform man. Cannot move against gravity much but can move from side to side. From evaluation of previous note appears to be somewhat better. Discuss patient about CVA. Hospitalist Physical - Constitutional Vitals: Temp Pulse Resp BP Pulse Ox 97.7 F 75 18 139/93 100 10/02/17 08:17 10/02/17 11:35 10/02/17 08:17 10/02/17 08:17 10/02/17 11:35 General appearance: Present: no acute distress - EENT Eyes: Present: PERRL, EOM intact ENT: hearing intact, clear oral mucosa, dentition normal, poor dentition, no oropharyngeal erythema, no thrush, no ulcerations, no edentulous - Neck Neck: Present: supple, normal ROM. Absent: enlarged thyroid, masses or JVD, cervical LAD - Respiratory Respiratory effort: normal Respiratory: bilateral: CTA - Cardiovascular Rhythm: regular - Extremities Extremities: no ischemia, pulses intact, pulses symmetrical Peripheral Pulses: within normal limits - Abdominal General gastrointestinal: soft, non-tender, non-distended, normal bowel sounds, no hepatomegaly, no splenomegaly, no mass, no hernia - Integumentary Integumentary: Present: clear, warm, dry - Psychiatric Psychiatric: appropriate mood/affect, intact judgment & insight, memory intact - Neurologic Neurologic: focal deficits, other (right hemiparesis.) Results - Labs CBC & Chem 7: 10/02/17 05:02 10/02/17 05:02 Labs: Laboratory Last Values WBC 9.3 K/mm3 (4.5-11.0) 10/02/17 05:02 RBC 4.70 M/mm3 (3.65-5.03) 10/02/17 05:02 Hgb 14.8 gm/dl (11.8-15.2) 10/02/17 05:02 Hct 44.2 % (35.5-45.6) 10/02/17 05:02 MCV 94 fl (84-94) 10/02/17 05:02 MCH 32 pg (28-32) 10/02/17 05:02 MCHC 34 % (32-34) 10/02/17 05:02 RDW 13.2 % (13.2-15.2) 10/02/17 05:02 Plt Count 221 K/mm3 (140-440) 10/02/17 05:02 Lymph % (Auto) 15.4 % (13.4-35.0) 10/02/17 05:02 [place] % (Auto) 7.3 % (0.0-7.3) 10/02/17 05:02 Eos % (Auto) 0.2 % (0.0-4.3) 10/02/17 05:02 Baso % (Auto) 0.1 % (0.0-1.8) 10/02/17 05:02 Lymph # 1.4 K/mm3 (1.2-5.4) 10/02/17 05:02 [place] # 0.7 K/mm3 (0.0-0.8) 10/02/17 05:02 Eos # 0.0 K/mm3 (0.0-0.4) 10/02/17 05:02 Baso # 0.0 K/mm3 (0.0-0.1) 10/02/17 05:02 Seg Neutrophils % 77.0 % (40.0-70.0) H 10/02/17 05:02 Seg Neutrophils # 7.2 K/mm3 (1.8-7.7) 10/02/17 05:02 PT 13.1 Sec. (12.2-14.9) 10/01/17 00:58 INR 0.95 (0.87-1.13) 10/01/17 00:58 APTT 26.0 Sec. (24.2-36.6) 10/01/17 00:58 Thrombin Time 17.0 Sec. (15.1-19.6) 10/01/17 00:58 Sodium 138 mmol/L (137-145) 10/02/17 05:02 Potassium 3.8 mmol/L (3.6-5.0) 10/02/17 05:02 Chloride 98.6 mmol/L (98-107) 10/02/17 05:02 Carbon Dioxide 27 mmol/L (22-30) 10/02/17 05:02 Anion Gap 16 mmol/L 10/02/17 05:02 BUN 12 mg/dL (9-20) 10/02/17 05:02 Creatinine 0.8 mg/dL (0.8-1.5) 10/02/17 05:02 Estimated GFR > 60 ml/min 10/02/17 05:02 BUN/Creatinine Ratio 15 % 10/02/17 05:02 Glucose 92 mg/dL (75-100) 10/02/17 05:02 POC Glucose 98 (70-105) 10/02/17 12:34 Hemoglobin A1c 6.7 % (4-6) H 10/02/17 05:02 Calcium 9.1 mg/dL (8.4-10.2) 10/02/17 05:02 Total Bilirubin 0.50 mg/dL (0.1-1.2) 10/02/17 05:02 AST 35 units/L (5-40) 10/02/17 05:02 ALT 26 units/L (7-56) 10/02/17 05:02 Alkaline Phosphatase 67 units/L (35-129) 10/02/17 05:02 Troponin T < 0.010 ng/mL (0.00-0.029) 10/01/17 00:58 Total Protein 6.8 g/dL (6.3-8.2) 10/02/17 05:02 Albumin 3.7 g/dL (3.9-5) L 10/02/17 05:02 Albumin/Globulin Ratio 1.2 % 10/02/17 05:02 Triglycerides 128 mg/dL (2-149) 10/02/17 05:02 Cholesterol 130 mg/dL (50-199) 10/02/17 05:02 LDL Cholesterol Direct 78 mg/dL (50-130) 10/02/17 05:02 HDL Cholesterol 31 mg/dL (40-59) L 10/02/17 05:02 Cholesterol/HDL Ratio 4.19 % 10/02/17 05:02 Vitamin B12 641.8 pg/mL (211-911) 10/01/17 20:04 TSH 1.050 mlU/mL (0.270-4.200) 10/01/17 20:04 Urine Color Yellow (Yellow) 10/01/17 05:43 Urine Turbidity Clear (Clear) 10/01/17 05:43 Urine pH 5.0 (5.0-7.0) 10/01/17 05:43 Ur Specific [place] 1.024 (1.003-1.030) 10/01/17 05:43 Urine Protein <15 mg/dl mg/dL (Negative) 10/01/17 05:43 Urine Glucose (UA) Neg mg/dL (Negative) 10/01/17 05:43 Urine Ketones Neg mg/dL (Negative) 10/01/17 05:43 Urine Blood Neg (Negative) 10/01/17 05:43 Urine Nitrite Neg (Negative) 10/01/17 05:43 Urine Bilirubin Neg (Negative) 10/01/17 05:43 Urine Urobilinogen < 2.0 mg/dL (<2.0) 10/01/17 05:43 Ur Leukocyte Esterase Neg (Negative) 10/01/17 05:43 Urine WBC (Auto) 1.0 /HPF (0.0-6.0) 10/01/17 05:43 Urine RBC (Auto) 3.0 /HPF (0.0-6.0) 10/01/17 05:43 U Epithel Cells (Auto) 1.0 /HPF (0-13.0) 10/01/17 05:43 Urine Mucus Few /HPF 10/01/17 05:43 Urine Opiates Screen Presumptive negative 10/01/17 05:43 Urine Methadone Screen Presumptive negative 10/01/17 05:43 Ur Barbiturates Screen Presumptive negative 10/01/17 05:43 Ur Phencyclidine Scrn Presumptive negative 10/01/17 05:43 Ur Amphetamines Screen Presumptive negative 10/01/17 05:43 U Benzodiazepines Scrn Presumptive negative 10/01/17 05:43 Urine Cocaine Screen Presumptive negative 10/01/17 05:43 U Marijuana (THC) Screen Presumptive positive 10/01/17 05:43 Drugs of Abuse Note Disclamer 10/01/17 05:43
[2017-10-03] MEDS: NACL 0.9% 1000 ML 2,000 ML IV SCH ×3 (03:25→23:01)
[2017-10-03 06:04] LABS: Basophils % (Auto) 0.2 % (0.0-1.8); Eosinophils % (Auto) 0.6 % (0.0-4.3); Hematocrit 44.6 % (35.5-45.6); Lymphocytes # (Auto) 1.4 K/mm3 (1.2-5.4); Lymphocytes % (Auto) 19.7 % (13.4-35.0); Mean Corpuscular HGB Conc 34 % (32-34); Mean Corpuscular Hemoglobin 32 pg (28-32); Mean Corpuscular Volume 94 fl (84-94); Monocytes # (Auto) 0.7 K/mm3 (0.0-0.8); Monocytes % (Auto) 9.4 % (0.0-7.3); Red Blood Count 4.76 M/mm3 (3.65-5.03); Red Cell Distribution Width 13.1 % (13.2-15.2)
[2017-10-03 06:15] LABS: Platelet Count 224 K/mm3 (140-440)
[2017-10-03 07:08] LABS: Alanine Aminotransferase 22 units/L (7-56); Albumin 3.4 g/dL (3.9-5); BUN/Creatinine Ratio 13; Blood Urea Nitrogen 12 mg/dL (9-20); Calcium 9.1 mg/dL (8.4-10.2); Hemolysis Index 6
--- NOTE | 2017-10-03 09:48 | Progress Note ---
Assessment and Plan -Acute cerebrovascular accident MRI of the brain, MRI/MRA of the neck and brain. Echocardiogram of the heart. PT OT ST evaluation and treatment. IV hydration Obtain TSH level and lipid panel B12 and folic acid levels. Serial neuro checks Commence patient on aspirin and atorvastatin. - Pt complaint of some weakness on the left arm also. Had repeat CT of the head that was normal increase Nurocheck to q 2 hrs. Close monitor of his Pox. discusse with pt's nurse suspect possible ascendign neuropathy vs pulbar dysfunction. Will await Neuro input - Polycythemia - resolved continue IV hydration. - Hypercalcemia - resolved IV normal saline Monitor Ca+ levels - Diabeted mellitus with A1c of 6.7% SSI, consistent CHO diet, - Tobacco use disorder Consistent progressive addition done. - Developed prophylaxis with Lovenox and GI with Pepcid Laboratory radiological data spent 40 minutes during this admission process in direct patient care, laboratory and radiological data. Subjective Date of service: 10/03/17 Principal diagnosis: acute ischemic stroke Interval history: Procedure length right in bed in no acute distress. He has weakness on the right side. However complains of some weakness affecting the left side. Denies any headache. Objective - Exam Narrative Exam: Constitutional: Well-nourished well-developed. In no distress Head: Normocephalic atraumatic Eyes: Pupils are equal round and reactive to light Nose: No enlarged turbinates, no septal deviation. Mouth: Moist mucous membranes. Neck: Supple no thyromegaly. No bruit. No JVD Heart: Regular rate and rhythm, S1-S2 abnormal. No rubs murmurs or gallop Lungs: Clear to auscultation bilaterally no rales or rhonchi Abdomen: Soft, nontender. Bowel sound are present. Extremities: No edema no cyanosis and no clubbing. Neuro: Right-sided weakness with minimal weakness on the left upper arm. Alert and Oriented x3. Second to 12th cranial nerves were grossly intact. Skin: No rashes no hyperemic spots Psychiatry: Euthymic. Calm. - Constitutional Vitals: Vital Signs - 12hr 10/02/17 10/02/17 10/03/17 22:00 23:21 00:17 Temperature 97.6 F Respiratory 22 Rate Blood Pressure 145/95 O2 Sat by Pulse 100 98 Oximetry - Labs CBC & Chem 7: 10/03/17 04:49 10/03/17 04:49 Labs: Abnormal lab results 10/03/17 10/03/17 Range/Units 04:49 04:49 RDW 13.1 L (13.2-15.2) % [place] % (Auto) 9.4 H (0.0-7.3) % Seg Neutrophils % 70.1 H (40.0-70.0) % Albumin 3.4 L (3.9-5) g/dL
[2017-10-03] MEDS: TENORMIN PO SCH (10:04)
[2017-10-03] MEDS: ASPIRIN PO SCH (10:04)
[2017-10-03] MEDS: LOVENOX SUB-Q SCH (10:04)
--- NOTE | 2017-10-03 18:25 | Cat Scan Report ---
FINAL REPORT EXAM: CT HEAD/BRAIN WO CON HISTORY: Decreased mental status TECHNIQUE: Noncontrast CT axial images of the brain. PRIORS: CT brain, 30 September 2017. MRI brain, 01 October 2017. FINDINGS: No parenchymal mass, mass effect, hemorrhage, midline shift or hydrocephalus. No evidence of acute cortical infarct. No abnormal, extra-axial fluid or air collection. Small focus of acute ischemic change in right lateral pontine region on comparison MRI brain not readily apparent. Osseous calvarium grossly intact. IMPRESSION: 1. No acute intracranial findings.
[2017-10-03] MEDS: PLAVIX PO SCH (22:53)
[2017-10-04 05:51] LABS: Basophils % (Auto) 0.4 % (0.0-1.8); Eosinophils # (Auto) 0.1 K/mm3 (0.0-0.4); Eosinophils % (Auto) 0.8 % (0.0-4.3); Hematocrit 45.2 % (35.5-45.6); Lymphocytes # (Auto) 1.4 K/mm3 (1.2-5.4); Lymphocytes % (Auto) 17.5 % (13.4-35.0); Mean Corpuscular HGB Conc 33 % (32-34); Mean Corpuscular Hemoglobin 31 pg (28-32); Mean Corpuscular Volume 94 fl (84-94); Monocytes # (Auto) 0.8 K/mm3 (0.0-0.8); Red Blood Count 4.81 M/mm3 (3.65-5.03); Red Cell Distribution Width 12.9 % (13.2-15.2)
[2017-10-04 05:59] LABS: Platelet Count 214 K/mm3 (140-440)
[2017-10-04 06:25] LABS: Alanine Aminotransferase 22 units/L (7-56); Albumin 3.2 g/dL (3.9-5); BUN/Creatinine Ratio 13; Blood Urea Nitrogen 10 mg/dL (9-20); Calcium 8.5 mg/dL (8.4-10.2); Hemolysis Index 15
--- NOTE | 2017-10-04 07:13 | Progress Note ---
Assessment and Plan -Acute cerebrovascular accident MRI of the brain showed acute linear lacuna infarction on the right side of the ellen, MRA of the brain was normal. Echocardiogram report is pending. Given the fact that patient has right-sided weakness and the presence of a right linear lacuna infarction clinical picture is therefore contradictory. I discussed extensively with 2 neurologists, Dr. Collazo and Dr. Samir oliveira both of which doubt an acute stroke. The nares have a history that this could be multiple sclerosis. Patient's age 52 of us these diagnosis. Patient is pretty young for an acute ischemic stroke. His bilateral weakness with the right being more than the left side and inability to move both lower extremities except for slight movement on the left lower extremity contradicts the findings of ischemic stroke. I would defer to an empirical IV Solumedrol for possible multiple sclerosis. I discussed this with Dr. Oneal who agreed with it. Continue with PT OT ST evaluation and treatment. IV hydration TSH level and lipid panel B12 and folic acid levels were normal. Continue Serial neuro checks Continue patient on, ASA, atorvastatin and anticoagulation - Pt complaint of some weakness on the left arm also. Had repeat CT of the head that was normal increase Nurocheck to q 2 hrs. Close monitor of his Pox. Discusse with pt's nurse suspect possible ascendign neuropathy vs bulbar pathology. Will await Neuro input - Polycythemia - resolved continue IV hydration. - Hypercalcemia - resolved IV normal saline Monitor Ca+ levels - Diabeted mellitus with A1c of 6.7% SSI, consistent CHO diet, - Tobacco use disorder Consistent progressive addition done. - Developed prophylaxis with Lovenox and GI with Pepcid Laboratory radiological data spent 40 minutes during this admission process in direct patient care, laboratory and radiological data. Subjective Date of service: 10/04/17 Principal diagnosis: acute ischemic stroke, hypocalcemia, diabetes mellitus type 2, Polycythemia Interval history: Patient lying quietly in bed. In no acute distress. He has weakness on the right side. However complains of some weakness affecting the left side that is improving. Denies any headache. Objective - Exam Narrative Exam: Constitutional: Well-nourished well-developed. In no distress Head: Normocephalic atraumatic Eyes: Pupils are equal round and reactive to light Nose: No enlarged turbinates, no septal deviation. Mouth: Moist mucous membranes. Neck: Supple no thyromegaly. No bruit. No JVD Heart: Regular rate and rhythm, S1-S2 abnormal. No rubs murmurs or gallop Lungs: Clear to auscultation bilaterally no rales or rhonchi Abdomen: Soft, nontender. Bowel sound are present. Extremities: No edema no cyanosis and no clubbing. Neuro: Right-sided weakness with minimal weakness on the left upper arm. Alert and Oriented x3. Second to 12th cranial nerves were grossly intact. Skin: No rashes no hyperemic spots Psychiatry: Euthymic.Calm. - Constitutional Vitals: Vital Signs - 12hr 10/03/17 10/03/17 10/03/17 22:00 22:40 22:59 Temperature 97.5 F L Pulse Rate 62 Respiratory 22 Rate Blood Pressure 127/79 Blood Pressure 127/79 [Left] O2 Sat by Pulse 99 97 Oximetry 10/04/17 06:08 Temperature 98.3 F Pulse Rate 66 Respiratory 18 Rate Blood Pressure 132/85 Blood Pressure [Left] O2 Sat by Pulse 99 Oximetry - Labs CBC & Chem 7: 10/04/17 04:33 10/04/17 04:33 Labs: Abnormal lab results 10/03/17 10/04/17 10/04/17 Range/Units 04:49 04:33 04:33 RDW 12.9 L (13.2-15.2) % [place] % (Auto) 10.0 H (0.0-7.3) % Seg Neutrophils % 71.3 H (40.0-70.0) % Glucose 134 H (75-100) mg/dL Total Protein 6.0 L (6.3-8.2) g/dL Albumin 3.4 L 3.2 L (3.9-5) g/dL
--- NOTE | 2017-10-04 08:03 | Consultation ---
History of Present Illness Consult date: 10/04/17 History of present illness: very interesting case ! there is right sided weakness and very subtle area in the ellen on the right side lateral... this has not progressed on the CT compared from 10/01 to 10/03 still suspect small vessel ischemia laila sionce MRA shows no real change advise tx with baclofen full note dictated and plan f/u Past History Past Medical History: other (asthma, history of right wrist fracture, umbilical hernia, testicular torsion 2017.) Past Surgical History: Other (An testicular torsion) Medications and Allergies Allergies Allergy/AdvReac Type Severity Reaction Status Date / Time No Known Allergies Allergy Unverified 09/12/13 13:49 Home Medications Medication Instructions Recorded Confirmed Last Taken Type Lisinopril [Prinivil] 10 mg PO DAILY 10/03/17 10/03/17 10/02/17 History Naproxen [Naprosyn] 500 mg PO BID 10/03/17 10/03/17 Unknown History Pantoprazole [Protonix] 40 mg PO QDAY 10/03/17 10/03/17 10/02/17 History Pregabalin [Lyrica] 200 mg PO DAILY 10/03/17 10/03/17 10/02/17 History Zolpidem Tartrate [Edluar SUBL] 10 mg SL QHS PRN 10/03/17 10/03/17 10/02/17 History clonazePAM [KlonoPIN] 2 mg PO DAILY 10/03/17 10/03/17 Unknown History glipiZIDE [Glipizide] 10 mg PO BID 10/03/17 10/03/17 10/02/17 History traMADol [Ultram] 50 mg PO Q6HR PRN 10/03/17 10/03/17 Unknown History traZODone [Desyrel] 100 mg PO DAILY 10/03/17 10/03/17 Unknown History Active Meds: Active Medications Acetaminophen/Hydrocodone Bitart ([place] 5/325) 1 each PO Q6H PRN PRN Reason: Pain, Moderate (4-6) Aspirin (Aspirin) 325 mg PO QDAY [facility] Last Admin: 10/03/17 10:04 Dose: 325 mg Atenolol (Tenormin) 25 mg PO QDAY [facility] Last Admin: 10/03/17 10:04 Dose: 25 mg Atorvastatin Calcium (Lipitor) 40 mg PO QHS [facility] Last Admin: 10/03/17 22:53 Dose: 40 mg Clopidogrel Bisulfate (Plavix) 75 mg PO QDAY [facility] Last Admin: 10/03/17 22:53 Dose: 75 mg Enoxaparin Sodium (Lovenox) 40 mg SUB-Q QDAY [facility] Last Admin: 10/03/17 10:04 Dose: 40 mg Sodium Chloride (Nacl 0.9% 1000 Ml) 2,000 mls @ 125 mls/hr IV DIRECT [facility] Last Admin: 10/03/17 23:01 Dose: 125 mls/hr Sodium Chloride (Sodium Chloride Flush Syringe 10 Ml) 10 ml IV PRN PRN PRN Reason: LINE FLUSH Physical Examination - Vital Signs Vital Signs: Vital Signs Pulse Ox 97 10/01/17 00:00 - Assessment Assessment Interval: Baseline - Level of Consciousness 1a. Level of Consciousness: alert - LOC Questions 1b. LOC Questions: answers correctly - LOC Command 1c. LOC Commands: performs tasks correctly - Best Gaze 2. Best Gaze: normal - Visual 3. Visual: no visual loss - Facial Palsy 4. Facial Palsy: normal symmetrical movement - Motor Arm 5b. Motor Arm Right: drift - Motor Leg 6a. Motor Leg Left: no drift - Limb Ataxia 7. Limb Ataxia: absent - Sensory 8. Sensory: mild/moderate sensory loss - Best Language 9. Best Language: no aphasia - Dysarthria 10. Dysarthria: normal - Extinction and Inattention 11. Extinction/Inattention: no abnormality Results - Laboratory Findings CBC and BMP: 10/04/17 04:33 10/04/17 04:33 Abnormal Lab Findings: Abnormal Labs 10/01/17 10/01/17 10/01/17 00:39 00:58 00:58 Hgb 15.6 H Hct 47.3 H MCV 95 H RDW 12.8 L Lymph % (Auto) 10.4 L [place] % (Auto) Lymph # 1.0 L Seg Neutrophils % 83.7 H Seg Neutrophils # 7.8 H Glucose 145 H POC Glucose 142 H Hemoglobin A1c Calcium 10.3 H Total Protein Albumin HDL Cholesterol 10/02/17 10/02/17 10/02/17 05:02 05:02 05:02 Hgb Hct MCV RDW Lymph % (Auto) [place] % (Auto) Lymph # Seg Neutrophils % 77.0 H Seg Neutrophils # Glucose POC Glucose Hemoglobin A1c 6.7 H Calcium Total Protein Albumin 3.7 L HDL Cholesterol 31 L 10/03/17 10/03/17 10/04/17 04:49 04:49 04:33 Hgb Hct MCV RDW 13.1 L 12.9 L Lymph % (Auto) [place] % (Auto) 9.4 H 10.0 H Lymph # Seg Neutrophils % 70.1 H 71.3 H Seg Neutrophils # Glucose POC Glucose Hemoglobin A1c Calcium Total Protein Albumin 3.4 L HDL Cholesterol 10/04/17 04:33 Hgb Hct MCV RDW Lymph % (Auto) [place] % (Auto) Lymph # Seg Neutrophils % Seg Neutrophils # Glucose 134 H POC Glucose Hemoglobin A1c Calcium Total Protein 6.0 L Albumin 3.2 L HDL Cholesterol
--- NOTE | 2017-10-04 08:40 | Consultation ---
HISTORY OF PRESENT ILLNESS: This is a 42-year-old black male that presents to [facility] with onset of weakness of his right side including sensation and strength for approximately 24 hours. The patient presented to the hospital. He previously had a history of using marijuana, a prior history of surgery for umbilical hernia, testicular torsion in 2017, a prior history of wrist fracture. He is not known to be hypertensive and on presentation had a blood pressure on admission of diastolic of 89. His blood pressure did have remained stable in the Emergency Room Department who was initially assessed and his PT was 13.1. His hematocrit was 47. His electrolytes showed sodium of 144, potassium of 3.9, a BUN 12, and creatinine of 0.9. He was initially assessed. The patient had told neurology and did not recommend aggressive treatment with TPA and the patient was further assessed, admitted for further assessment. Subsequently, I have reviewed the CT scan of the head, which shows evidence of diminution of the cortical sulcal pattern in the left hemisphere, henson white matter otherwise unremarkable. Findings were somewhat suggestive of a left MCA occlusive disease. Subsequently, the patient had a repeat CT scan on 10/03/2017 and this essentially showed no interval change to my review, as was agreed with the radiologist who independently evaluated as well. Additional comment, there was a head MRI scan done, which showed intact anterior and posterior circulation with no significant stenosis. I, in addition, also reviewed an MRI scan of the brain, which showed a small acute infarct in the posterior limb of the right ellen. PHYSICAL EXAMINATION: NEUROLOGIC: On examination of the patient, the patient has a dense right hemiparesis, not involving the face, he is not aphasic. The patient's cranial nerves are otherwise intact with full ocular movements, benign fundi. The patient has symmetrical neck movements. No meningismus present. The patient's motor and sensory examination otherwise unremarkable. EXTREMITIES: The patient has weakness of the right leg and right arm, but not the face. He has occasional spasms. He actually tells me that when he moves, he has jerking. I did not observe this over myself but does seem to have some increased stiffness of the left upper extremity. IMPRESSION AND PLAN: This patient has a very unusual presentation with an imaging abnormality present clearly in the ellen on the right side. This is in the lateral to the mid ellen and clearly off the midline, which would certainly be the only finding on the MRI that I would indicate and also his repeat CT scan that was done on the 10/03/2017 was compared to the MRI done on the 10/01/2017 and I have reviewed both of these and actually after very careful review of the CT scan even do not see the MRI abnormality with evidence of increased edema or hemorrhage in the area indicating that this is a very stable process. Still, I would have to believe that this is small vessel in nature, I do not think this is characteristically of the pattern seen with multiple sclerosis, although this remains a possibility of a diagnosis given his age, I would treat the patient with an anti-spasm agent such as baclofen. JOB# [id number] JOY/COURTNEY
[2017-10-04] MEDS: TENORMIN PO SCH (09:37)
[2017-10-04] MEDS: ASPIRIN PO SCH (09:37)
[2017-10-04] MEDS: PLAVIX PO SCH (09:37)
[2017-10-04] MEDS: LOVENOX SUB-Q SCH (09:37)
[2017-10-04] MEDS: NACL 0.9% 1000 ML 2,000 ML IV SCH ×2 (10:55→21:49)
[2017-10-04] MEDS: SODIUM CHLORIDE FLUSH SYRINGE 10 ML IV PRN (21:49)
[2017-10-05] MEDS: NACL 0.9% 1000 ML 2,000 ML IV SCH (06:48)
--- NOTE | 2017-10-05 07:38 | Progress Note ---
Assessment and Plan -Acute cerebrovascular accident possible Multiple sclerosis MRI of the brain showed acute linear lacuna infarction on the right side of the ellen, MRA of the brain was normal. Echocardiogram report is pending. Given the fact that patient has right-sided weakness and the presence of a right linear lacuna infarction clinical picture is therefore contradictory. I discussed extensively with 2 neurologists, Dr. Collazo and Dr. Dawson back both of which doubt an acute stroke. The nares have a history that this could be multiple sclerosis. Patient's age 52 of us these diagnosis. Patient is pretty young for an acute ischemic stroke. His bilateral weakness with the right being more than the left side and inability to move both lower extremities except for slight movement on the left lower extremity contradicts the findings of ischemic stroke. I would defer to an empirical IV Solumedrol for possible multiple sclerosis. I discussed this with Dr. Oneal who agreed with it. Continue with PT OT ST evaluation and treatment. IV hydration TSH level and lipid panel B12 and folic acid levels were normal. Continue Serial neuro checks Continue patient on, ASA, atorvastatin and anticoagulation - Pt complaint of some weakness on the left arm also. Had repeat CT of the head that was normal increase Nurocheck to q 2 hrs. Close monitor of his Pox. Discusse with pt's nurse suspect possible ascendign neuropathy vs bulbar pathology. Will await Neuro input - Diabeted mellitus with A1c of 6.7% SSI, consistent CHO diet, anaticipate incel inlbodd sugar level with solumedrol - Tobacco use disorder Consistent progressive addition done. - Developed prophylaxis with Lovenox and GI with Pepcid Laboratory radiological data spent 40 minutes during this admission process in direct patient care, laboratory and radiological data. Subjective Date of service: 10/05/17 Principal diagnosis: acute ischemic stroke, hypocalcemia, diabetes mellitus type 2, Polycythemia Interval history: Patient lying quietly in bed. In no acute distress. He has weakness on the right side . However complains of some weakness affecting the left side that is improving. Denies any headache. Objective - Exam Narrative Exam: Constitutional: Well-nourished well-developed. In no distress Head: Normocephalic atraumatic Eyes: Pupils are equal round and reactive to light Nose: No enlarged turbinates, no septal deviation. Mouth: Moist mucous membranes. Neck: Supple no thyromegaly. No bruit. No JVD Heart: Regular rate and rhythm, S1-S2 abnormal. No rubs murmurs or gallop Lungs: Clear to auscultation bilaterally no rales or rhonchi Abdomen: Soft, nontender. Bowel sound are present. Extremities: No edema no cyanosis and no clubbing. Neuro: Right-sided weakness. strentght 1/5 and weakness on the left and lower extremities strength 43/5 upper arm. Alert and Oriented x3. Second to 12th cranial nerves were grossly intact. Skin: No rashes no hyperemic spots Psychiatry: Euthymic.Calm. - Constitutional Vitals: Vital Signs - 12hr 10/04/17 10/04/17 10/04/17 19:47 21:05 21:30 Temperature 98.1 F Pulse Rate 65 62 Respiratory 18 Rate Blood Pressure 130/87 O2 Sat by Pulse 98 98 Oximetry 10/05/17 00:40 Temperature 98.5 F Pulse Rate 64 Respiratory 20 Rate Blood Pressure 137/84 O2 Sat by Pulse 96 Oximetry - Labs CBC & Chem 7: 10/04/17 04:33 10/04/17 04:33
[2017-10-05] MEDS: TENORMIN PO SCH (11:03)
[2017-10-05] MEDS: PLAVIX PO SCH (11:03)
[2017-10-05] MEDS: ASPIRIN PO SCH (11:03)
[2017-10-05] MEDS: LOVENOX SUB-Q SCH (11:04)
[2017-10-06] MEDS: NACL 0.9% 1000 ML 2,000 ML IV SCH ×2 (01:09→09:17)
[2017-10-06] MEDS: TENORMIN PO SCH (09:18)
[2017-10-06] MEDS: ASPIRIN PO SCH (09:18)
[2017-10-06] MEDS: LOVENOX SUB-Q SCH (09:18)
[2017-10-06] MEDS: PLAVIX PO SCH (09:18)
--- NOTE | 2017-10-06 09:46 | Progress Note ---
Assessment and Plan Patient is a 42-year-old male that presents to emergency room with complaints of right-sided weakness and right-sided numbness 19 hours. Last known well time at 5 AM on 09/30/17. Patient states that he was nauseous and vomiting for approximately an hour before symptoms started. Patient left work and went home and tried to sleep it off. When patient woke up this evening patient is still unable to move his right side normally. Patient denies any slurred speech. No facial droop. No headache. Patient also denies chest pain and shortness of breath. Patient denies fever and chills. c/o abd pain. On presentation to the emergency department, CT scan of the brain was normal. CT abdomen and pelvis because of nausea vomiting showed negative evidence of intra-abdominal lesions. Had evidence of carotid disease. Admission was therefore requested. MRI of [facility] brain showed right lacumar infarction. MRI report 10/01/17: Small acute linear lacunar infarction posterior lateral aspect right side of the ellen. -Possible Multiple sclerosis and less likely Acute cerebrovascular accident MRI of the brain showed acute linear lacuna infarction on the right side of the ellen, MRA of the brain was normal. Echocardiogram report is pending. Given the fact that patient has right-sided weakness and the presence of a right linear lacuna infarction clinical picture is therefore contradictory. I discussed extensively with 2 neurologists, Dr. Oneal and Dr. Caban both of which doubt an acute stroke. They were of the view that this could multiple sclerosis bulbar lesion. Patient's age of 42 lends credence to this diagnosis. Patient is still young for an acute ischemic stroke. His bilateral weakness with the right being more than the left side and inability to move both lower extremities except for slight movement on the left lower extremity contradicts the findings of ischemic stroke. I would defer to an empirical IV Solumedrol for possible multiple sclerosis. I discussed this with Dr. Oneal who agreed with it. suggest repeat MRI of the brain [facility] MS protocol adn LP for oligoclonal gammopathy. These were ordered Continue with PT OT ST evaluation and treatment. MRI of the brain ordered with Multiple Sclerosis Protocol LP by asphalt paver ordered of Oligoclonal gammopathy TSH level and lipid panel B12 and folic acid levels were normal. Continue Serial neuro checks Continue patient on, ASA, atorvastatin and anticoagulation - Pt complaint of some weakness on the left arm also. Had repeat CT of the head that was normal increase Nurocheck to q 2 hrs. Close monitor of his Pox. Discusse with pt's nurse suspect possible ascending neuropathy vs bulbar pathology. Appreciate Neuro input - Diabeted mellitus with A1c of 6.7% SSI, consistent CHO diet, anaticipate inrease in blood sugar level with iv solumedrol - Tobacco use disorder Counselling on Tobacco cessation was done. - DVT prophylaxis with Lovenox and GI with Pepcid -Disposition: Discharge to acute in-pt rehab afte MRI and LP Subjective Date of service: 10/06/17 Principal diagnosis: acute ischemic stroke, hypocalcemia, diabetes mellitus type 2, Polycythemia Interval history: Patient lying quietly in bed. In no acute distress. He has weakness on the right side . However complains of some weakness affecting the left side that is improving. Denies any headache. Objective - Exam Narrative Exam: Constitutional: Well-nourished well-developed. In no distress Head: Normocephalic atraumatic Eyes: Pupils are equal round and reactive to light Nose: No enlarged turbinates, no septal deviation. Mouth: Moist mucous membranes. Neck: Supple no thyromegaly. No bruit. No JVD Heart: Regular rate and rhythm, S1-S2 abnormal. No rubs murmurs or gallop Lungs: Clear to auscultation bilaterally no rales or rhonchi Abdomen: Soft, nontender. Bowel sound are present. Extremities: No edema no cyanosis and no clubbing. Neuro: Right-sided weakness. strentght 1/5 and weakness on the left and lower extremities strength 4-3/5 upper arm. Alert and Oriented x3. Second to 12th cranial nerves were grossly intact. Skin: No rashes no hyperemic spots Psychiatry: Euthymic.Calm. - Constitutional Vitals: Vital Signs - 12hr 10/05/17 10/05/17 10/05/17 22:00 23:44 23:48 Temperature 98.2 F 97.7 F Pulse Rate 54 L Pulse Rate [ 65 Right Radial] Respiratory 18 20 16 Rate Blood Pressure 130/84 130/78 O2 Sat by Pulse 96 Oximetry 10/06/17 10/06/17 10/06/17 04:11 07:21 09:18 Temperature 98.3 F 97.6 F Pulse Rate 54 L 59 L 62 Pulse Rate [ Right Radial] Respiratory 20 16 Rate Blood Pressure 135/79 135/77 O2 Sat by Pulse 97 96 Oximetry - EENT Ears: right: dull - Labs CBC & Chem 7: 10/04/17 04:33 10/04/17 04:33
[2017-10-06] MEDS: SODIUM CHLORIDE FLUSH SYRINGE 10 ML IV PRN (22:54)
[2017-10-07] MEDS: NACL 0.9% 1000 ML 2,000 ML IV SCH ×2 (01:26→13:36)
--- NOTE | 2017-10-07 09:10 | Event Note ---
Date: 10/07/17 Lumbar punctures are performed by diagnostic radiology. To order a lumbar puncture, please order [place] LUMBAR PUNCTURE. This will need to be discussed with diagnostic radiology.
--- NOTE | 2017-10-07 10:19 | Progress Note ---
Assessment and Plan Assessment and plan: --Acute CVA with right-sided hemiparesis Continue aspirin and statin, neuro checks, Follow neuro workup Physical therapy occupational therapy, follow neurology evaluation and recommendations --bilateral lower extremity weakness Check MRI lumbar spine, thoracic spine, follow neuro evaluation and recommendations Follow PT and OT evaluation and recommendations --Possible multiple sclerosis; unlikely, follow MRI T-spine, L-spine --2 diabetes mellitus; Accu-Chek sliding scale coverage and ADA diet. A1c 6.7, elevated blood sugars probably secondary to Solu-Medrol --Ongoing tobacco use; Smoking cessation counseling and nicotine patch as needed --DVT prophylaxis; Lovenox Closely monitor the patient and adjust management as needed History Interval history: Patient seen and examined medical records reviewed Complaints of bilateral lower extremity weakness, and dense right hemiparesis. Patient had extensive neuro workup, Neurology following Patient feels slightly better able to move slightly lower extremities Alert awake oriented 3 Vital signs reviewed Hospitalist Physical - Constitutional Vitals: Temp Pulse Resp BP Pulse Ox 97.7 F 72 16 155/89 98 10/07/17 07:17 10/07/17 07:17 10/07/17 07:17 10/07/17 07:17 10/07/17 08:04 General appearance: Present: no acute distress, well-nourished - EENT Eyes: Present: PERRL, EOM intact - Neck Neck: Present: supple, normal ROM - Respiratory Respiratory effort: normal Respiratory: bilateral: diminished, negative: rales, rhonchi, wheezing - Cardiovascular Rhythm: regular Heart Sounds: Present: S1 & S2 - Extremities Extremities: no ischemia, No edema - Abdominal General gastrointestinal: soft, non-tender, non-distended, normal bowel sounds - Integumentary Integumentary: Present: clear, warm - Psychiatric Psychiatric: appropriate mood/affect, cooperative - Neurologic Neurologic: other (right hemiparesis, bilateral lower extremity weakness, motor power 4 over 5 bilateral) Results - Labs CBC & Chem 7: 10/04/17 04:33 10/04/17 04:33 Labs: Laboratory Last Values WBC 7.9 K/mm3 (4.5-11.0) 10/04/17 04:33 RBC 4.81 M/mm3 (3.65-5.03) 10/04/17 04:33 Hgb 15.0 gm/dl (11.8-15.2) 10/04/17 04:33 Hct 45.2 % (35.5-45.6) 10/04/17 04:33 MCV 94 fl (84-94) 10/04/17 04:33 MCH 31 pg (28-32) 10/04/17 04:33 MCHC 33 % (32-34) 10/04/17 04:33 RDW 12.9 % (13.2-15.2) L 10/04/17 04:33 Plt Count 214 K/mm3 (140-440) 10/04/17 04:33 Lymph % (Auto) 17.5 % (13.4-35.0) 10/04/17 04:33 [place] % (Auto) 10.0 % (0.0-7.3) H 10/04/17 04:33 Eos % (Auto) 0.8 % (0.0-4.3) 10/04/17 04:33 Baso % (Auto) 0.4 % (0.0-1.8) 10/04/17 04:33 Lymph # 1.4 K/mm3 (1.2-5.4) 10/04/17 04:33 [place] # 0.8 K/mm3 (0.0-0.8) 10/04/17 04:33 Eos # 0.1 K/mm3 (0.0-0.4) 10/04/17 04:33 Baso # 0.0 K/mm3 (0.0-0.1) 10/04/17 04:33 Seg Neutrophils % 71.3 % (40.0-70.0) H 10/04/17 04:33 Seg Neutrophils # 5.7 K/mm3 (1.8-7.7) 10/04/17 04:33 PT 13.1 Sec. (12.2-14.9) 10/01/17 00:58 INR 0.95 (0.87-1.13) 10/01/17 00:58 APTT 26.0 Sec. (24.2-36.6) 10/01/17 00:58 Thrombin Time 17.0 Sec. (15.1-19.6) 10/01/17 00:58 Sodium 138 mmol/L (137-145) 10/04/17 04:33 Potassium 3.6 mmol/L (3.6-5.0) 10/04/17 04:33 Chloride 101.1 mmol/L (98-107) 10/04/17 04:33 Carbon Dioxide 23 mmol/L (22-30) 10/04/17 04:33 Anion Gap 18 mmol/L 10/04/17 04:33 BUN 10 mg/dL (9-20) 10/04/17 04:33 Creatinine 0.8 mg/dL (0.8-1.5) 10/04/17 04:33 Estimated GFR > 60 ml/min 10/04/17 04:33 BUN/Creatinine Ratio 13 % 10/04/17 04:33 Glucose 134 mg/dL (75-100) H 10/04/17 04:33 POC Glucose 94 (70-105) 10/02/17 20:21 Hemoglobin A1c 6.7 % (4-6) H 10/02/17 05:02 Calcium 8.5 mg/dL (8.4-10.2) 10/04/17 04:33 Total Bilirubin 0.40 mg/dL (0.1-1.2) 10/04/17 04:33 AST 24 units/L (5-40) 10/04/17 04:33 ALT 22 units/L (7-56) 10/04/17 04:33 Alkaline Phosphatase 67 units/L (35-129) 10/04/17 04:33 Troponin T < 0.010 ng/mL (0.00-0.029) 10/01/17 00:58 Total Protein 6.0 g/dL (6.3-8.2) L 10/04/17 04:33 Albumin 3.2 g/dL (3.9-5) L 10/04/17 04:33 Albumin/Globulin Ratio 1.1 % 10/04/17 04:33 Triglycerides 128 mg/dL (2-149) 10/02/17 05:02 Cholesterol 130 mg/dL (50-199) 10/02/17 05:02 LDL Cholesterol Direct 78 mg/dL (50-130) 10/02/17 05:02 HDL Cholesterol 31 mg/dL (40-59) L 10/02/17 05:02 Cholesterol/HDL Ratio 4.19 % 10/02/17 05:02 Vitamin B12 641.8 pg/mL (211-911) 10/01/17 20:04 TSH 1.050 mlU/mL (0.270-4.200) 10/01/17 20:04 Urine Color Yellow (Yellow) 10/01/17 05:43 Urine Turbidity Clear (Clear) 10/01/17 05:43 Urine pH 5.0 (5.0-7.0) 10/01/17 05:43 Ur Specific [place] 1.024 (1.003-1.030) 10/01/17 05:43 Urine Protein <15 mg/dl mg/dL (Negative) 10/01/17 05:43 Urine Glucose (UA) Neg mg/dL (Negative) 10/01/17 05:43 Urine Ketones Neg mg/dL (Negative) 10/01/17 05:43 Urine Blood Neg (Negative) 10/01/17 05:43 Urine Nitrite Neg (Negative) 10/01/17 05:43 Urine Bilirubin Neg (Negative) 10/01/17 05:43 Urine Urobilinogen < 2.0 mg/dL (<2.0) 10/01/17 05:43 Ur Leukocyte Esterase Neg (Negative) 10/01/17 05:43 Urine WBC (Auto) 1.0 /HPF (0.0-6.0) 10/01/17 05:43 Urine RBC (Auto) 3.0 /HPF (0.0-6.0) 10/01/17 05:43 U Epithel Cells (Auto) 1.0 /HPF (0-13.0) 10/01/17 05:43 Urine Mucus Few /HPF 10/01/17 05:43 Urine Opiates Screen Presumptive negative 10/01/17 05:43 Urine Methadone Screen Presumptive negative 10/01/17 05:43 Ur Barbiturates Screen Presumptive negative 10/01/17 05:43 Ur Phencyclidine Scrn Presumptive negative 10/01/17 05:43 Ur Amphetamines Screen Presumptive negative 10/01/17 05:43 U Benzodiazepines Scrn Presumptive negative 10/01/17 05:43 Urine Cocaine Screen Presumptive negative 10/01/17 05:43 U Marijuana (THC) Screen Presumptive positive 10/01/17 05:43 Drugs of Abuse Note Disclamer 10/01/17 05:43
--- NOTE | 2017-10-07 11:17 | Magnetic Resonance Report ---
MRI BRAIN WITH/WITHOUT CONTRAST: History: Multiple sclerosis. Comparison: CT head dated 10/03/17. Technique: Multiple T1 and T2 weighted images were obtained in multiple planes. Axial diffusion and gradient imaging was performed. Post contrast T1 images in two planes were obtained following IV gadolinium. Findings: An approximate 9 mm focus of diffusion restriction with decreased signal on the ADC map is identified in the left side of the medulla oblongata on diffusion image 8. There is also suggestion of a very subtle 5 x 10 mm area of diffusion restriction/increased T2 signal in the right side of the ellen on image 13. Both of these areas appear to represent foci of subacute ischemia of different ages. The right pontine lesion appears slightly older. The remaining brain parenchyma signal intensity and its henson-white interface are within normal limits. No pericallosal or dimitry-ventricular lesions are identified to suggest multiple sclerosis. The optic nerves are symmetric and unremarkable. Ventricular size is normal and symmetric. The basal cisterns are clear. The brainstem and cerebellar hemispheres are within normal limits. The fourth ventricle is midline. The paranasal sinuses and mastoid air cells are well aerated. Normal flow voids are identified in the appropriate vessels at the [place]. Following the administration of IV gadolinium, there is minimal enhancement/hyperemia in the right pontine lesion as well as enhancement of the right fifth cranial nerve. The lesion in the medulla does not enhance suggesting a more acute timeline. IMPRESSION: 2 foci of ischemic insult are suspected in the posterior fossa as described. Please see above. Mild enhancement of the right fifth cranial nerve which could be associated with ischemic insult or trigeminal neuralgia. No evidence for hemorrhage or mass effect. No findings to suggest multiple sclerosis. Consultation with urology is recommended.
[2017-10-07] MEDS: TENORMIN PO SCH (13:34)
[2017-10-07] MEDS: ASPIRIN PO SCH (13:35)
[2017-10-07] MEDS: PLAVIX PO SCH (13:35)
[2017-10-07] MEDS: LOVENOX SUB-Q SCH ×2 (13:44→13:55)
[2017-10-07 16:03] LABS: INR 0.95 (0.87-1.13)
[2017-10-08] MEDS: LOVENOX SUB-Q SCH (10:16)
[2017-10-08] MEDS: NORCO 5/325 PO PRN (10:16)
[2017-10-08] MEDS: TENORMIN PO SCH (10:17)
[2017-10-08] MEDS: NACL 0.9% 1000 ML 2,000 ML IV SCH ×2 (10:24→22:22)
--- NOTE | 2017-10-08 13:20 | Consultation ---
History of Present Illness Consult date: 10/08/17 History of present illness: I have studied the new MRI of the brain from the 10/07 study and copmpared it to the first MRI study.... there is very interesting change... the first MRI showed this clear area of ischemia in the right lateral ellen this is better and less distinct of the current study ( 10/07) what is a NEW ISSUE IS THE AREA OF HYPERFUSION IN THE UPPER anterior SPINAL CORD - DISTRIBUTION OF THE ANTERIOR SPINAL ARTERY this area was very faint and not commented on in the first MRI this is clearly a very complicated lesion as anterior spinal artery ischemia syndromes are profoundly rare... again wonder about vasculitis / arteriitis syndromes ie sarcoidosis / lupus Past History Past Medical History: other (asthma, history of right wrist fracture, umbilical hernia, testicular torsion 2017.) Past Surgical History: Other (An testicular torsion) Medications and Allergies Allergies Allergy/AdvReac Type Severity Reaction Status Date / Time No Known Allergies Allergy Unverified 09/12/13 13:49 Home Medications Medication Instructions Recorded Confirmed Last Taken Type Lisinopril [Prinivil] 10 mg PO DAILY 10/03/17 10/03/17 10/02/17 History Naproxen [Naprosyn] 500 mg PO BID 10/03/17 10/03/17 Unknown History Pantoprazole [Protonix] 40 mg PO QDAY 10/03/17 10/03/17 10/02/17 History Pregabalin [Lyrica] 200 mg PO DAILY 10/03/17 10/03/17 10/02/17 History Zolpidem Tartrate [Edluar SUBL] 10 mg SL QHS PRN 10/03/17 10/03/17 10/02/17 History clonazePAM [KlonoPIN] 2 mg PO DAILY 10/03/17 10/03/17 Unknown History glipiZIDE [Glipizide] 10 mg PO BID 10/03/17 10/03/17 10/02/17 History traMADol [Ultram] 50 mg PO Q6HR PRN 10/03/17 10/03/17 Unknown History traZODone [Desyrel] 100 mg PO DAILY 10/03/17 10/03/17 Unknown History Active Meds: Active Medications Acetaminophen/Hydrocodone Bitart ([place] 5/325) 1 each PO Q6H PRN PRN Reason: Pain, Moderate (4-6) Last Admin: 10/08/17 10:16 Dose: 1 each Aspirin (Aspirin) 325 mg PO QDAY [facility] Last Admin: 10/07/17 13:35 Dose: 325 mg Atenolol (Tenormin) 25 mg PO QDAY [facility] Last Admin: 10/08/17 10:17 Dose: Not Given Atorvastatin Calcium (Lipitor) 40 mg PO QHS [facility] Last Admin: 10/07/17 21:40 Dose: 40 mg Clopidogrel Bisulfate (Plavix) 75 mg PO QDAY [facility] Last Admin: 10/07/17 13:35 Dose: 75 mg Enoxaparin Sodium (Lovenox) 40 mg SUB-Q QDAY [facility] Last Admin: 10/08/17 10:16 Dose: 40 mg Sodium Chloride (Nacl 0.9% 1000 Ml) 2,000 mls @ 125 mls/hr IV DIRECT [facility] Last Admin: 10/08/17 10:24 Dose: 125 mls/hr Methylprednisolone Sodium Succinate (Solu-Medrol) 80 mg IV Q12HR [facility] Last Admin: 10/08/17 10:15 Dose: 80 mg Sodium Chloride (Sodium Chloride Flush Syringe 10 Ml) 10 ml IV PRN PRN PRN Reason: LINE FLUSH Last Admin: 10/06/17 22:54 Dose: 10 ml Physical Examination - Vital Signs Vital Signs: Vital Signs Pulse Ox 97 10/01/17 00:00 - Assessment Assessment Interval: Baseline - Level of Consciousness 1a. Level of Consciousness: alert - LOC Questions 1b. LOC Questions: answers correctly - LOC Command 1c. LOC Commands: performs tasks correctly - Best Gaze 2. Best Gaze: normal - Visual 3. Visual: no visual loss - Facial Palsy 4. Facial Palsy: normal symmetrical movement - Motor Arm 5b. Motor Arm Right: drift - Motor Leg 6a. Motor Leg Left: no drift - Limb Ataxia 7. Limb Ataxia: absent - Sensory 8. Sensory: mild/moderate sensory loss - Best Language 9. Best Language: no aphasia - Dysarthria 10. Dysarthria: normal - Extinction and Inattention 11. Extinction/Inattention: no abnormality Results - Laboratory Findings CBC and BMP: 10/04/17 04:33 10/04/17 04:33 Abnormal Lab Findings: Abnormal Labs 10/01/17 10/01/17 10/01/17 00:39 00:58 00:58 Hgb 15.6 H Hct 47.3 H MCV 95 H RDW 12.8 L Lymph % (Auto) 10.4 L [place] % (Auto) Lymph # 1.0 L Seg Neutrophils % 83.7 H Seg Neutrophils # 7.8 H Glucose 145 H POC Glucose 142 H Hemoglobin A1c Calcium 10.3 H Total Protein Albumin HDL Cholesterol 10/02/17 10/02/17 10/02/17 05:02 05:02 05:02 Hgb Hct MCV RDW Lymph % (Auto) [place] % (Auto) Lymph # Seg Neutrophils % 77.0 H Seg Neutrophils # Glucose POC Glucose Hemoglobin A1c 6.7 H Calcium Total Protein Albumin 3.7 L HDL Cholesterol 31 L 10/03/17 10/03/17 10/04/17 04:49 04:49 04:33 Hgb Hct MCV RDW 13.1 L 12.9 L Lymph % (Auto) [place] % (Auto) 9.4 H 10.0 H Lymph # Seg Neutrophils % 70.1 H 71.3 H Seg Neutrophils # Glucose POC Glucose Hemoglobin A1c Calcium Total Protein Albumin 3.4 L HDL Cholesterol 10/04/17 10/07/17 04:33 11:55 Hgb Hct MCV RDW Lymph % (Auto) [place] % (Auto) Lymph # Seg Neutrophils % Seg Neutrophils # Glucose 134 H POC Glucose 121 H Hemoglobin A1c Calcium Total Protein 6.0 L Albumin 3.2 L HDL Cholesterol
--- NOTE | 2017-10-08 13:21 | Progress Note ---
Assessment and Plan Assessment and plan: --Acute CVA with right-sided hemiparesis Continue aspirin and statin, neuro checks, Follow neuro workup Physical therapy occupational therapy, neurology following Possible acute subacute/ rehabilitation --bilateral lower extremity weakness Check MRI lumbar spine, thoracic spine, follow neuro evaluation and recommendations Follow PT and OT evaluation and recommendations --Possible multiple sclerosis; unlikely, follow MRI T-spine, L-spine --2 diabetes mellitus; Accu-Chek sliding scale coverage and ADA diet. A1c 6.7, elevated blood sugars probably secondary to Solu-Medrol --Ongoing tobacco use; Smoking cessation counseling and nicotine patch as needed --DVT prophylaxis; Lovenox Closely monitor the patient and adjust management as needed History Interval history: Patient seen and examined medical records reviewed Patient feels slightly better, very minimal improvement on lower extremity weakness Alert Awake oriented 3 Vital signs reviewed Hospitalist Physical - Constitutional Vitals: Temp Pulse Resp BP Pulse Ox 97.9 F 53 L 20 117/70 96 10/08/17 07:47 10/08/17 10:17 10/08/17 07:47 10/08/17 10:17 10/08/17 07:47 General appearance: Present: no acute distress, well-nourished - EENT Eyes: Present: PERRL, EOM intact - Neck Neck: Present: supple, normal ROM - Respiratory Respiratory effort: normal Respiratory: bilateral: diminished, negative: rales, rhonchi, wheezing - Cardiovascular Rhythm: regular Heart Sounds: Present: S1 & S2 - Extremities Extremities: no ischemia, No edema, abnormal (with the minimal movement, unable to lift,) - Abdominal General gastrointestinal: soft, non-tender, non-distended, normal bowel sounds - Integumentary Integumentary: Present: clear, warm - Neurologic Neurologic: other (acute CVA with right hemiparesis) Results - Labs CBC & Chem 7: 10/04/17 04:33 10/04/17 04:33 Labs: Laboratory Last Values WBC 7.9 K/mm3 (4.5-11.0) 10/04/17 04:33 RBC 4.81 M/mm3 (3.65-5.03) 10/04/17 04:33 Hgb 15.0 gm/dl (11.8-15.2) 10/04/17 04:33 Hct 45.2 % (35.5-45.6) 10/04/17 04:33 MCV 94 fl (84-94) 10/04/17 04:33 MCH 31 pg (28-32) 10/04/17 04:33 MCHC 33 % (32-34) 10/04/17 04:33 RDW 12.9 % (13.2-15.2) L 10/04/17 04:33 Plt Count 214 K/mm3 (140-440) 10/04/17 04:33 Lymph % (Auto) 17.5 % (13.4-35.0) 10/04/17 04:33 [place] % (Auto) 10.0 % (0.0-7.3) H 10/04/17 04:33 Eos % (Auto) 0.8 % (0.0-4.3) 10/04/17 04:33 Baso % (Auto) 0.4 % (0.0-1.8) 10/04/17 04:33 Lymph # 1.4 K/mm3 (1.2-5.4) 10/04/17 04:33 [place] # 0.8 K/mm3 (0.0-0.8) 10/04/17 04:33 Eos # 0.1 K/mm3 (0.0-0.4) 10/04/17 04:33 Baso # 0.0 K/mm3 (0.0-0.1) 10/04/17 04:33 Seg Neutrophils % 71.3 % (40.0-70.0) H 10/04/17 04:33 Seg Neutrophils # 5.7 K/mm3 (1.8-7.7) 10/04/17 04:33 PT 13.2 Sec. (12.2-14.9) 10/07/17 14:47 INR 0.95 (0.87-1.13) 10/07/17 14:47 APTT 26.0 Sec. (24.2-36.6) 10/01/17 00:58 Thrombin Time 17.0 Sec. (15.1-19.6) 10/01/17 00:58 Sodium 138 mmol/L (137-145) 10/04/17 04:33 Potassium 3.6 mmol/L (3.6-5.0) 10/04/17 04:33 Chloride 101.1 mmol/L (98-107) 10/04/17 04:33 Carbon Dioxide 23 mmol/L (22-30) 10/04/17 04:33 Anion Gap 18 mmol/L 10/04/17 04:33 BUN 10 mg/dL (9-20) 10/04/17 04:33 Creatinine 0.8 mg/dL (0.8-1.5) 10/04/17 04:33 Estimated GFR > 60 ml/min 10/04/17 04:33 BUN/Creatinine Ratio 13 % 10/04/17 04:33 Glucose 134 mg/dL (75-100) H 10/04/17 04:33 POC Glucose 121 (70-105) H 10/07/17 11:55 Hemoglobin A1c 6.7 % (4-6) H 10/02/17 05:02 Calcium 8.5 mg/dL (8.4-10.2) 10/04/17 04:33 Total Bilirubin 0.40 mg/dL (0.1-1.2) 10/04/17 04:33 AST 24 units/L (5-40) 10/04/17 04:33 ALT 22 units/L (7-56) 10/04/17 04:33 Alkaline Phosphatase 67 units/L (35-129) 10/04/17 04:33 Troponin T < 0.010 ng/mL (0.00-0.029) 10/01/17 00:58 Total Protein 6.0 g/dL (6.3-8.2) L 10/04/17 04:33 Albumin 3.2 g/dL (3.9-5) L 10/04/17 04:33 Albumin/Globulin Ratio 1.1 % 10/04/17 04:33 Triglycerides 128 mg/dL (2-149) 10/02/17 05:02 Cholesterol 130 mg/dL (50-199) 10/02/17 05:02 LDL Cholesterol Direct 78 mg/dL (50-130) 10/02/17 05:02 HDL Cholesterol 31 mg/dL (40-59) L 10/02/17 05:02 Cholesterol/HDL Ratio 4.19 % 10/02/17 05:02 Vitamin B12 641.8 pg/mL (211-911) 10/01/17 20:04 TSH 1.050 mlU/mL (0.270-4.200) 10/01/17 20:04 Urine Color Yellow (Yellow) 10/01/17 05:43 Urine Turbidity Clear (Clear) 10/01/17 05:43 Urine pH 5.0 (5.0-7.0) 10/01/17 05:43 Ur Specific [place] 1.024 (1.003-1.030) 10/01/17 05:43 Urine Protein <15 mg/dl mg/dL (Negative) 10/01/17 05:43 Urine Glucose (UA) Neg mg/dL (Negative) 10/01/17 05:43 Urine Ketones Neg mg/dL (Negative) 10/01/17 05:43 Urine Blood Neg (Negative) 10/01/17 05:43 Urine Nitrite Neg (Negative) 10/01/17 05:43 Urine Bilirubin Neg (Negative) 10/01/17 05:43 Urine Urobilinogen < 2.0 mg/dL (<2.0) 10/01/17 05:43 Ur Leukocyte Esterase Neg (Negative) 10/01/17 05:43 Urine WBC (Auto) 1.0 /HPF (0.0-6.0) 10/01/17 05:43 Urine RBC (Auto) 3.0 /HPF (0.0-6.0) 10/01/17 05:43 U Epithel Cells (Auto) 1.0 /HPF (0-13.0) 10/01/17 05:43 Urine Mucus Few /HPF 10/01/17 05:43 Urine Opiates Screen Presumptive negative 10/01/17 05:43 Urine Methadone Screen Presumptive negative 10/01/17 05:43 Ur Barbiturates Screen Presumptive negative 10/01/17 05:43 Ur Phencyclidine Scrn Presumptive negative 10/01/17 05:43 Ur Amphetamines Screen Presumptive negative 10/01/17 05:43 U Benzodiazepines Scrn Presumptive negative 10/01/17 05:43 Urine Cocaine Screen Presumptive negative 10/01/17 05:43 U Marijuana (THC) Screen Presumptive positive 10/01/17 05:43 Drugs of Abuse Note Disclamer 10/01/17 05:43
--- NOTE | 2017-10-08 13:26 | Consultation ---
History of Present Illness Consult date: 10/08/17 History of present illness: short comment beginning of medulla and transition of / from upper spinal cord is subtle distinction same vasucular feed anterior spinal artery I did review the clinical comments in the radiolgy report and this is agreed Past History Past Medical History: other (asthma, history of right wrist fracture, umbilical hernia, testicular torsion 2017.) Past Surgical History: Other (An testicular torsion) Medications and Allergies Allergies Allergy/AdvReac Type Severity Reaction Status Date / Time No Known Allergies Allergy Unverified 09/12/13 13:49 Home Medications Medication Instructions Recorded Confirmed Last Taken Type Lisinopril [Prinivil] 10 mg PO DAILY 10/03/17 10/03/17 10/02/17 History Naproxen [Naprosyn] 500 mg PO BID 10/03/17 10/03/17 Unknown History Pantoprazole [Protonix] 40 mg PO QDAY 10/03/17 10/03/17 10/02/17 History Pregabalin [Lyrica] 200 mg PO DAILY 10/03/17 10/03/17 10/02/17 History Zolpidem Tartrate [Edluar SUBL] 10 mg SL QHS PRN 10/03/17 10/03/17 10/02/17 History clonazePAM [KlonoPIN] 2 mg PO DAILY 10/03/17 10/03/17 Unknown History glipiZIDE [Glipizide] 10 mg PO BID 10/03/17 10/03/17 10/02/17 History traMADol [Ultram] 50 mg PO Q6HR PRN 10/03/17 10/03/17 Unknown History traZODone [Desyrel] 100 mg PO DAILY 10/03/17 10/03/17 Unknown History Active Meds: Active Medications Acetaminophen/Hydrocodone Bitart ([place] 5/325) 1 each PO Q6H PRN PRN Reason: Pain, Moderate (4-6) Last Admin: 10/08/17 10:16 Dose: 1 each Aspirin (Aspirin) 325 mg PO QDAY [facility] Last Admin: 10/07/17 13:35 Dose: 325 mg Atenolol (Tenormin) 25 mg PO QDAY [facility] Last Admin: 10/08/17 10:17 Dose: Not Given Atorvastatin Calcium (Lipitor) 40 mg PO QHS [facility] Last Admin: 10/07/17 21:40 Dose: 40 mg Clopidogrel Bisulfate (Plavix) 75 mg PO QDAY [facility] Last Admin: 10/07/17 13:35 Dose: 75 mg Enoxaparin Sodium (Lovenox) 40 mg SUB-Q QDAY [facility] Last Admin: 10/08/17 10:16 Dose: 40 mg Sodium Chloride (Nacl 0.9% 1000 Ml) 2,000 mls @ 125 mls/hr IV DIRECT [facility] Last Admin: 10/08/17 10:24 Dose: 125 mls/hr Methylprednisolone Sodium Succinate (Solu-Medrol) 80 mg IV Q12HR [facility] Last Admin: 10/08/17 10:15 Dose: 80 mg Sodium Chloride (Sodium Chloride Flush Syringe 10 Ml) 10 ml IV PRN PRN PRN Reason: LINE FLUSH Last Admin: 10/06/17 22:54 Dose: 10 ml Physical Examination - Vital Signs Vital Signs: Vital Signs Pulse Ox 97 10/01/17 00:00 - Assessment Assessment Interval: Baseline - Level of Consciousness 1a. Level of Consciousness: alert - LOC Questions 1b. LOC Questions: answers correctly - LOC Command 1c. LOC Commands: performs tasks correctly - Best Gaze 2. Best Gaze: normal - Visual 3. Visual: no visual loss - Facial Palsy 4. Facial Palsy: normal symmetrical movement - Motor Arm 5b. Motor Arm Right: drift - Motor Leg 6a. Motor Leg Left: no drift - Limb Ataxia 7. Limb Ataxia: absent - Sensory 8. Sensory: mild/moderate sensory loss - Best Language 9. Best Language: no aphasia - Dysarthria 10. Dysarthria: normal - Extinction and Inattention 11. Extinction/Inattention: no abnormality Results - Laboratory Findings CBC and BMP: 10/04/17 04:33 10/04/17 04:33 Abnormal Lab Findings: Abnormal Labs 10/01/17 10/01/17 10/01/17 00:39 00:58 00:58 Hgb 15.6 H Hct 47.3 H MCV 95 H RDW 12.8 L Lymph % (Auto) 10.4 L [place] % (Auto) Lymph # 1.0 L Seg Neutrophils % 83.7 H Seg Neutrophils # 7.8 H Glucose 145 H POC Glucose 142 H Hemoglobin A1c Calcium 10.3 H Total Protein Albumin HDL Cholesterol 10/02/17 10/02/17 10/02/17 05:02 05:02 05:02 Hgb Hct MCV RDW Lymph % (Auto) [place] % (Auto) Lymph # Seg Neutrophils % 77.0 H Seg Neutrophils # Glucose POC Glucose Hemoglobin A1c 6.7 H Calcium Total Protein Albumin 3.7 L HDL Cholesterol 31 L 10/03/17 10/03/17 10/04/17 04:49 04:49 04:33 Hgb Hct MCV RDW 13.1 L 12.9 L Lymph % (Auto) [place] % (Auto) 9.4 H 10.0 H Lymph # Seg Neutrophils % 70.1 H 71.3 H Seg Neutrophils # Glucose POC Glucose Hemoglobin A1c Calcium Total Protein Albumin 3.4 L HDL Cholesterol 10/04/17 10/07/17 04:33 11:55 Hgb Hct MCV RDW Lymph % (Auto) [place] % (Auto) Lymph # Seg Neutrophils % Seg Neutrophils # Glucose 134 H POC Glucose 121 H Hemoglobin A1c Calcium Total Protein 6.0 L Albumin 3.2 L HDL Cholesterol
[2017-10-09] MEDS: NACL 0.9% 1000 ML 2,000 ML IV SCH ×2 (04:30→19:38)
--- NOTE | 2017-10-09 11:22 | Progress Note ---
Assessment and Plan Assessment and plan: --Bilateral lower extremity weakness Check MRI lumbar spine, thoracic spine, follow neuro evaluation and recommendations Follow PT and OT evaluation and recommendations --Acute CVA with right-sided hemiparesis Continue aspirin and statin, neuro checks, Follow neuro workup Physical therapy occupational therapy, neurology following Possible acute subacute/ rehabilitation --Possible multiple sclerosis; unlikely, follow MRI T-spine, L-spine --2 diabetes mellitus; Accu-Chek sliding scale coverage and ADA diet. A1c 6.7, elevated blood sugars probably secondary to Solu-Medrol --Ongoing tobacco use; Smoking cessation counseling and nicotine patch as needed --DVT prophylaxis; Lovenox Physical therapy occupational therapy, rehabilitation Closely monitor the patient and adjust management as needed History Interval history: Patient seen and examined medical records reviewed No new event is reported by the nursing staff Patient underwent MRI lumbar and thoracic spine Continues to have lower extremity weakness Mild improvement able to move [id number] Vital signs reviewed stable Hospitalist Physical - Constitutional Vitals: Temp Pulse Resp BP Pulse Ox 98.3 F 64 20 132/78 95 10/09/17 07:52 10/09/17 07:52 10/09/17 07:52 10/09/17 07:52 10/09/17 07:52 General appearance: Present: no acute distress, well-nourished - EENT Eyes: Present: PERRL, EOM intact - Neck Neck: Present: supple, normal ROM - Respiratory Respiratory effort: normal Respiratory: bilateral: diminished, negative: rales, rhonchi, wheezing - Cardiovascular Rhythm: regular Heart Sounds: Present: S1 & S2 - Extremities Extremities: no ischemia, No edema - Abdominal General gastrointestinal: soft, non-tender, non-distended, normal bowel sounds - Integumentary Integumentary: Present: clear, warm - Psychiatric Psychiatric: appropriate mood/affect, cooperative - Neurologic Neurologic: other (bilateral lower extremity weakness, CVA with right hemiparesis) Results - Labs CBC & Chem 7: 10/04/17 04:33 10/04/17 04:33 Labs: Laboratory Last Values WBC 7.9 K/mm3 (4.5-11.0) 10/04/17 04:33 RBC 4.81 M/mm3 (3.65-5.03) 10/04/17 04:33 Hgb 15.0 gm/dl (11.8-15.2) 10/04/17 04:33 Hct 45.2 % (35.5-45.6) 10/04/17 04:33 MCV 94 fl (84-94) 10/04/17 04:33 MCH 31 pg (28-32) 10/04/17 04:33 MCHC 33 % (32-34) 10/04/17 04:33 RDW 12.9 % (13.2-15.2) L 10/04/17 04:33 Plt Count 214 K/mm3 (140-440) 10/04/17 04:33 Lymph % (Auto) 17.5 % (13.4-35.0) 10/04/17 04:33 [place] % (Auto) 10.0 % (0.0-7.3) H 10/04/17 04:33 Eos % (Auto) 0.8 % (0.0-4.3) 10/04/17 04:33 Baso % (Auto) 0.4 % (0.0-1.8) 10/04/17 04:33 Lymph # 1.4 K/mm3 (1.2-5.4) 10/04/17 04:33 [place] # 0.8 K/mm3 (0.0-0.8) 10/04/17 04:33 Eos # 0.1 K/mm3 (0.0-0.4) 10/04/17 04:33 Baso # 0.0 K/mm3 (0.0-0.1) 10/04/17 04:33 Seg Neutrophils % 71.3 % (40.0-70.0) H 10/04/17 04:33 Seg Neutrophils # 5.7 K/mm3 (1.8-7.7) 10/04/17 04:33 PT 13.2 Sec. (12.2-14.9) 10/07/17 14:47 INR 0.95 (0.87-1.13) 10/07/17 14:47 APTT 26.0 Sec. (24.2-36.6) 10/01/17 00:58 Thrombin Time 17.0 Sec. (15.1-19.6) 10/01/17 00:58 Sodium 138 mmol/L (137-145) 10/04/17 04:33 Potassium 3.6 mmol/L (3.6-5.0) 10/04/17 04:33 Chloride 101.1 mmol/L (98-107) 10/04/17 04:33 Carbon Dioxide 23 mmol/L (22-30) 10/04/17 04:33 Anion Gap 18 mmol/L 10/04/17 04:33 BUN 10 mg/dL (9-20) 10/04/17 04:33 Creatinine 0.8 mg/dL (0.8-1.5) 10/04/17 04:33 Estimated GFR > 60 ml/min 10/04/17 04:33 BUN/Creatinine Ratio 13 % 10/04/17 04:33 Glucose 134 mg/dL (75-100) H 10/04/17 04:33 POC Glucose 121 (70-105) H 10/07/17 11:55 Hemoglobin A1c 6.7 % (4-6) H 10/02/17 05:02 Calcium 8.5 mg/dL (8.4-10.2) 10/04/17 04:33 Total Bilirubin 0.40 mg/dL (0.1-1.2) 10/04/17 04:33 AST 24 units/L (5-40) 10/04/17 04:33 ALT 22 units/L (7-56) 10/04/17 04:33 Alkaline Phosphatase 67 units/L (35-129) 10/04/17 04:33 Troponin T < 0.010 ng/mL (0.00-0.029) 10/01/17 00:58 Total Protein 6.0 g/dL (6.3-8.2) L 10/04/17 04:33 Albumin 3.2 g/dL (3.9-5) L 10/04/17 04:33 Albumin/Globulin Ratio 1.1 % 10/04/17 04:33 Triglycerides 128 mg/dL (2-149) 10/02/17 05:02 Cholesterol 130 mg/dL (50-199) 10/02/17 05:02 LDL Cholesterol Direct 78 mg/dL (50-130) 10/02/17 05:02 HDL Cholesterol 31 mg/dL (40-59) L 10/02/17 05:02 Cholesterol/HDL Ratio 4.19 % 10/02/17 05:02 Vitamin B12 641.8 pg/mL (211-911) 10/01/17 20:04 TSH 1.050 mlU/mL (0.270-4.200) 10/01/17 20:04 Urine Color Yellow (Yellow) 10/01/17 05:43 Urine Turbidity Clear (Clear) 10/01/17 05:43 Urine pH 5.0 (5.0-7.0) 10/01/17 05:43 Ur Specific [place] 1.024 (1.003-1.030) 10/01/17 05:43 Urine Protein <15 mg/dl mg/dL (Negative) 10/01/17 05:43 Urine Glucose (UA) Neg mg/dL (Negative) 10/01/17 05:43 Urine Ketones Neg mg/dL (Negative) 10/01/17 05:43 Urine Blood Neg (Negative) 10/01/17 05:43 Urine Nitrite Neg (Negative) 10/01/17 05:43 Urine Bilirubin Neg (Negative) 10/01/17 05:43 Urine Urobilinogen < 2.0 mg/dL (<2.0) 10/01/17 05:43 Ur Leukocyte Esterase Neg (Negative) 10/01/17 05:43 Urine WBC (Auto) 1.0 /HPF (0.0-6.0) 10/01/17 05:43 Urine RBC (Auto) 3.0 /HPF (0.0-6.0) 10/01/17 05:43 U Epithel Cells (Auto) 1.0 /HPF (0-13.0) 10/01/17 05:43 Urine Mucus Few /HPF 10/01/17 05:43 Urine Opiates Screen Presumptive negative 10/01/17 05:43 Urine Methadone Screen Presumptive negative 10/01/17 05:43 Ur Barbiturates Screen Presumptive negative 10/01/17 05:43 Ur Phencyclidine Scrn Presumptive negative 10/01/17 05:43 Ur Amphetamines Screen Presumptive negative 10/01/17 05:43 U Benzodiazepines Scrn Presumptive negative 10/01/17 05:43 Urine Cocaine Screen Presumptive negative 10/01/17 05:43 U Marijuana (THC) Screen Presumptive positive 10/01/17 05:43 Drugs of Abuse Note Disclamer 10/01/17 05:43
--- NOTE | 2017-10-09 13:02 | Magnetic Resonance Report ---
FINAL REPORT EXAM: MR THORACIC SPINE WO CON HISTORY: Macario LE weakness TECHNIQUE: MRI of the thoracic spine without IV contrast. PRIORS: None currently available. FINDINGS: Thoracic cord is of normal caliber and signal characteristic. Marrow signal characteristics are appropriate for age. There is no fracture. There is no subluxation. T4-T5 demonstrates a left central protrusion measuring 2.5 mm with annular fissure. Slight indentation of the ventral cord without abnormal signal characteristics within the cord. Minimal to mild spinal canal narrowing. Bilateral foramina are intact. Mild degenerative discs at T5-T6 and T10-T11. Slight indentation of the thecal sac with minimal to mild spinal canal narrowing. No significant neural foraminal narrowing. Remaining levels do not demonstrate significant canal or foraminal narrowing. Prevertebral soft tissue structures are unremarkable. 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 No evidence for cord compression. Degenerative discs.
--- NOTE | 2017-10-09 13:05 | Magnetic Resonance Report ---
FINAL REPORT EXAM: MR LUMBAR SPINE WO CON HISTORY: adina LE weakness TECHNIQUE: MRI of the lumbar spine without IV contrast. PRIORS: None currently available. FINDINGS: Lumbar cord is of normal caliber and signal characteristic. The conus medullaris terminates at an appropriate level for the patient's age. The filum terminale and nerve roots are intact. There is no clumping. Marrow signal characteristics are appropriate for age. There is no fracture. There is no subluxation. L5-S1: Degenerated disc. Broad-based central protrusion measures 5.3 mm. Bilateral facet arthropathy. [id number] bilateral foraminal narrowing. Mild spinal canal narrowing. Remaining levels do not demonstrate significant canal or foraminal narrowing. Bilateral facet arthropathy noted throughout the lumbar spine. Prevertebral soft tissue structures are unremarkable. There is no abdominal aortic aneurysm. IMPRESSION: Degenerative discs and lumbar spondylosis.
[2017-10-09] MEDS: LOVENOX SUB-Q SCH (13:22)
[2017-10-09] MEDS: TENORMIN PO SCH (13:23)
[2017-10-09] MEDS: SODIUM CHLORIDE FLUSH SYRINGE 10 ML IV PRN (22:34)
[2017-10-10 05:14] LABS: Hematocrit 45.6 % (35.5-45.6); Hemoglobin 15.3 gm/dl (11.8-15.2); Mean Corpuscular HGB Conc 33 % (32-34); Mean Corpuscular Hemoglobin 32 pg (28-32); Mean Corpuscular Volume 94 fl (84-94); Platelet Count 208 K/mm3 (140-440); Red Blood Count 4.85 M/mm3 (3.65-5.03); Red Cell Distribution Width 13.1 % (13.2-15.2)
[2017-10-10 05:35] LABS: Alanine Aminotransferase 104 units/L (7-56); Albumin 3.3 g/dL (3.9-5); BUN/Creatinine Ratio 22; Blood Urea Nitrogen 20 mg/dL (9-20); Hemolysis Index 12
[2017-10-10 08:16] LABS: Band Neutrophils # (Manual) 0.2 K/mm3; Basophils % (Manual) 0 % (0.0-1.8); Eosinophils % (Manual) 0 % (0.0-4.3); Total Cells Counted 100
[2017-10-10 08:17] LABS: Large Platelets Few; Platelet Estimate Cons; RBC Morphology Normal
[2017-10-10] MEDS: NACL 0.9% 1000 ML 2,000 ML IV SCH (09:58)
[2017-10-10] MEDS ORDERED: XYLOCAINE 2% INFILTRATI ONE (12:02)
[2017-10-10] MEDS: NORCO 5/325 PO PRN ×2 (12:35→17:28)
--- NOTE | 2017-10-10 12:46 | Procedure Note ---
Date of procedure: 10/10/17 Pre-op diagnosis: MS, lower extremety numbness Post-op diagnosis: same Procedure: flouro guided lumbar puncture Anesthesia: local Surgeon: ODALYS VU Estimated blood loss: none Pathology: list (4 csf tubes) Specimen disposition: to lab Condition: stable Disposition: floor
--- NOTE | 2017-10-10 13:03 | Progress Note ---
Subjective Date of service: 10/10/17 Principal diagnosis: acute ischemic stroke, hypocalcemia, diabetes mellitus type 2, Polycythemia Interval history: the MRI was reviewed by me and only issue of note is mild DJD and disc disease the lesion in the upper spinal cord /medulla is likely the cause of wekness in the legs.... this is very atypical for pure ischemic stroke and I wonder about sarcoidosis which is why [facility] recommended check crp Objective - Vital Sign Vital Signs - 12hr 10/10/17 10/10/17 10/10/17 05:50 05:55 07:15 Temperature 97.4 F L 97.4 F L 97.8 F Pulse Rate 54 L Respiratory 20 20 20 Rate Blood Pressure 127/75 128/75 O2 Sat by Pulse 96 Oximetry 10/10/17 10:00 Temperature Pulse Rate 54 L Respiratory Rate Blood Pressure O2 Sat by Pulse Oximetry - Laboratory Findings CBC and BMP: 10/10/17 04:53 10/10/17 04:53 Abnormal Lab Findings: Abnormal Labs 10/01/17 10/01/17 10/01/17 00:39 00:58 00:58 WBC Hgb 15.6 H Hct 47.3 H MCV 95 H RDW 12.8 L Lymph % (Auto) 10.4 L [place] % (Auto) Lymph # 1.0 L Seg Neutrophils % 83.7 H Seg Neuts % (Manual) Lymphocytes % (Manual) Monocytes % (Manual) Seg Neutrophils # 7.8 H Seg Neutrophils # Man Lymphocytes # (Manual) Monocytes # (Manual) Sodium Chloride Glucose 145 H POC Glucose 142 H Hemoglobin A1c Calcium 10.3 H AST ALT Total Protein Albumin HDL Cholesterol 10/02/17 10/02/17 10/02/17 05:02 05:02 05:02 WBC Hgb Hct MCV RDW Lymph % (Auto) [place] % (Auto) Lymph # Seg Neutrophils % 77.0 H Seg Neuts % (Manual) Lymphocytes % (Manual) Monocytes % (Manual) Seg Neutrophils # Seg Neutrophils # Man Lymphocytes # (Manual) Monocytes # (Manual) Sodium Chloride Glucose POC Glucose Hemoglobin A1c 6.7 H Calcium AST ALT Total Protein Albumin 3.7 L HDL Cholesterol 31 L 10/03/17 10/03/17 10/04/17 04:49 04:49 04:33 WBC Hgb Hct MCV RDW 13.1 L 12.9 L Lymph % (Auto) [place] % (Auto) 9.4 H 10.0 H Lymph # Seg Neutrophils % 70.1 H 71.3 H Seg Neuts % (Manual) Lymphocytes % (Manual) Monocytes % (Manual) Seg Neutrophils # Seg Neutrophils # Man Lymphocytes # (Manual) Monocytes # (Manual) Sodium Chloride Glucose POC Glucose Hemoglobin A1c Calcium AST ALT Total Protein Albumin 3.4 L HDL Cholesterol 10/04/17 10/07/17 10/10/17 04:33 11:55 04:53 WBC 16.1 H Hgb 15.3 H Hct MCV RDW 13.1 L Lymph % (Auto) [place] % (Auto) Lymph # Seg Neutrophils % Seg Neuts % (Manual) 83.0 H Lymphocytes % (Manual) 7.0 L Monocytes % (Manual) 9.0 H Seg Neutrophils # Seg Neutrophils # Man 13.4 H Lymphocytes # (Manual) 1.1 L Monocytes # (Manual) 1.4 H Sodium Chloride Glucose 134 H POC Glucose 121 H Hemoglobin A1c Calcium AST ALT Total Protein 6.0 L Albumin 3.2 L HDL Cholesterol 10/10/17 04:53 WBC Hgb Hct MCV RDW Lymph % (Auto) [place] % (Auto) Lymph # Seg Neutrophils % Seg Neuts % (Manual) Lymphocytes % (Manual) Monocytes % (Manual) Seg Neutrophils # Seg Neutrophils # Man Lymphocytes # (Manual) Monocytes # (Manual) Sodium 135 L Chloride 96.6 L Glucose 266 H POC Glucose Hemoglobin A1c Calcium AST 50 H ALT 104 H Total Protein Albumin 3.3 L HDL Cholesterol
--- NOTE | 2017-10-10 13:17 | Fluoroscopy Report ---
FLUOROSCOPY LUMBAR PUNCTURE History: Bilateral lower extremity weakness, visual symptoms, MS. Description of procedure: Informed consent was obtained. Sterile technique was utilized. 1% lidocaine for skin anesthesia. Using fluoroscopy guidance, lumbar puncture was performed at the L2-3 level. One fluoroscopic image was captured. There was spontaneous return of clear CSF. 4 tubes of CSF fluid were collected for laboratory analysis. No complications. Impression: Successful fluoroscopy guided lumbar puncture as described.
[2017-10-10 13:33] LABS: Glucose,CSF 148 mg/dL
[2017-10-10 14:52] LABS: Appearance,CSF Cloudy
[2017-10-10 14:53] LABS: Red Blood Cell,CSF 1 /mm3 (0-0); White Blood Cell,CSF 42 /mm3 (1-10)
[2017-10-10] MEDS: LOVENOX SUB-Q SCH (15:33)
--- NOTE | 2017-10-10 16:45 | Progress Note ---
Subjective Date of service: 10/10/17 Principal diagnosis: acute ischemic stroke, hypocalcemia, diabetes mellitus type 2, Polycythemia Interval history: Dr. Guzman and myself went over all the MRI scan and this looks again like " ischemic stroke" CSF has slight increase in protein but not "super" high as if vasculatis the WBC c/w ischemic stroke and glucose is high based on reconsultation and reassessment still appears to be ischemic stroke right lateral ellen and medullary bupper cervical spinal cord trial of steroids in progress check crp Objective - Vital Sign Vital Signs - 12hr 10/10/17 10/10/17 10/10/17 05:50 05:55 07:15 Temperature 97.4 F L 97.4 F L 97.8 F Pulse Rate 54 L Respiratory 20 20 20 Rate Blood Pressure 127/75 128/75 O2 Sat by Pulse 96 Oximetry 10/10/17 10:00 Temperature Pulse Rate 54 L Respiratory Rate Blood Pressure O2 Sat by Pulse Oximetry - Laboratory Findings CBC and BMP: 10/10/17 04:53 10/10/17 04:53 Abnormal Lab Findings: Abnormal Labs 10/01/17 10/01/17 10/01/17 00:39 00:58 00:58 WBC Hgb 15.6 H Hct 47.3 H MCV 95 H RDW 12.8 L Lymph % (Auto) 10.4 L [place] % (Auto) Lymph # 1.0 L Seg Neutrophils % 83.7 H Seg Neuts % (Manual) Lymphocytes % (Manual) Monocytes % (Manual) Seg Neutrophils # 7.8 H Seg Neutrophils # Man Lymphocytes # (Manual) Monocytes # (Manual) Sodium Chloride Glucose 145 H POC Glucose 142 H Hemoglobin A1c Calcium 10.3 H AST ALT Total Protein Albumin HDL Cholesterol 10/02/17 10/02/17 10/02/17 05:02 05:02 05:02 WBC Hgb Hct MCV RDW Lymph % (Auto) [place] % (Auto) Lymph # Seg Neutrophils % 77.0 H Seg Neuts % (Manual) Lymphocytes % (Manual) Monocytes % (Manual) Seg Neutrophils # Seg Neutrophils # Man Lymphocytes # (Manual) Monocytes # (Manual) Sodium Chloride Glucose POC Glucose Hemoglobin A1c 6.7 H Calcium AST ALT Total Protein Albumin 3.7 L HDL Cholesterol 31 L 10/03/17 10/03/17 10/04/17 04:49 04:49 04:33 WBC Hgb Hct MCV RDW 13.1 L 12.9 L Lymph % (Auto) [place] % (Auto) 9.4 H 10.0 H Lymph # Seg Neutrophils % 70.1 H 71.3 H Seg Neuts % (Manual) Lymphocytes % (Manual) Monocytes % (Manual) Seg Neutrophils # Seg Neutrophils # Man Lymphocytes # (Manual) Monocytes # (Manual) Sodium Chloride Glucose POC Glucose Hemoglobin A1c Calcium AST ALT Total Protein Albumin 3.4 L HDL Cholesterol 10/04/17 10/07/17 10/10/17 04:33 11:55 04:53 WBC 16.1 H Hgb 15.3 H Hct MCV RDW 13.1 L Lymph % (Auto) [place] % (Auto) Lymph # Seg Neutrophils % Seg Neuts % (Manual) 83.0 H Lymphocytes % (Manual) 7.0 L Monocytes % (Manual) 9.0 H Seg Neutrophils # Seg Neutrophils # Man 13.4 H Lymphocytes # (Manual) 1.1 L Monocytes # (Manual) 1.4 H Sodium Chloride Glucose 134 H POC Glucose 121 H Hemoglobin A1c Calcium AST ALT Total Protein 6.0 L Albumin 3.2 L HDL Cholesterol 10/10/17 04:53 WBC Hgb Hct MCV RDW Lymph % (Auto) [place] % (Auto) Lymph # Seg Neutrophils % Seg Neuts % (Manual) Lymphocytes % (Manual) Monocytes % (Manual) Seg Neutrophils # Seg Neutrophils # Man Lymphocytes # (Manual) Monocytes # (Manual) Sodium 135 L Chloride 96.6 L Glucose 266 H POC Glucose Hemoglobin A1c Calcium AST 50 H ALT 104 H Total Protein Albumin 3.3 L HDL Cholesterol
[2017-10-10] MEDS: TENORMIN PO SCH (17:29)
--- NOTE | 2017-10-10 21:17 | Progress Note ---
Assessment and Plan Assessment and plan: 42-year-old male patient with significant past medical history of bronchial asthma was admitted through emergency room with right-sided weakness, Neuro workup is consistent with acute CVA with right- sided hemiparesis Patient also has bilateral lower extremity weakness, had extensive neuro workup , neurology following --Acute CVA with right-sided hemiparesis Continue aspirin and statin, neuro checks, Follow neuro workup Physical therapy occupational therapy, neurology following Possible acute subacute/ rehabilitation when clinically stable --Bilateral lower extremity weakness MRI lumbar spine, thoracic spine findings reviewed, discussed with neurology Follow PT and OT evaluation and recommendations May need acute rehabilitation, --Possible multiple sclerosis; unlikely, follow lumbar puncture studies Neurology following --2 diabetes mellitus; Accu-Chek sliding scale coverage and ADA diet. A1c 6.7, elevated blood sugars probably secondary to Solu-Medrol --Ongoing tobacco use; Smoking cessation counseling and nicotine patch as needed --DVT prophylaxis; Lovenox Physical therapy occupational therapy, rehabilitation Closely monitor the patient and adjust management as needed Disposition; follow clinically, follow neurology recommendations History Interval history: Patient Seen and examined medical records reviewed Continues to have bilateral lower extremity weakness very minimal improvement Patient with acute CVA with right-sided hemiparesis No new complaints, No new events reported by nursing staff Scheduled for lumbar puncture today, neurology following Alert awake oriented 3Not in acute distress Vital signs reviewed Hospitalist Physical - Constitutional Vitals: Temp Pulse Resp BP Pulse Ox 98.1 F 60 20 125/71 96 10/10/17 19:52 10/10/17 19:52 10/10/17 21:05 10/10/17 19:52 10/10/17 21:05 General appearance: Present: no acute distress, well-nourished - EENT Eyes: Present: PERRL, EOM intact - Neck Neck: Present: supple, normal ROM - Respiratory Respiratory effort: normal Respiratory: bilateral: diminished, negative: rales, rhonchi, wheezing - Cardiovascular Rhythm: regular Heart Sounds: Present: S1 & S2 - Extremities Extremities: no ischemia Extremity abnormal: edema, other (bilateral lower extremity weakness) - Abdominal General gastrointestinal: soft, non-tender, non-distended, normal bowel sounds - Integumentary Integumentary: Present: clear, warm - Psychiatric Psychiatric: appropriate mood/affect, cooperative - Neurologic Neurologic: other (CVA with right-sided hemiparesis, bilateral lower extremity weakness) Results - Labs CBC & Chem 7: 10/10/17 04:53 10/10/17 04:53 Labs: Laboratory Last Values WBC 16.1 K/mm3 (4.5-11.0) H 10/10/17 04:53 RBC 4.85 M/mm3 (3.65-5.03) 10/10/17 04:53 Hgb 15.3 gm/dl (11.8-15.2) H 10/10/17 04:53 Hct 45.6 % (35.5-45.6) 10/10/17 04:53 MCV 94 fl (84-94) 10/10/17 04:53 MCH 32 pg (28-32) 10/10/17 04:53 MCHC 33 % (32-34) 10/10/17 04:53 RDW 13.1 % (13.2-15.2) L 10/10/17 04:53 Plt Count 208 K/mm3 (140-440) 10/10/17 04:53 Lymph % (Auto) 17.5 % (13.4-35.0) 10/04/17 04:33 [place] % (Auto) 10.0 % (0.0-7.3) H 10/04/17 04:33 Eos % (Auto) 0.8 % (0.0-4.3) 10/04/17 04:33 Baso % (Auto) 0.4 % (0.0-1.8) 10/04/17 04:33 Lymph # 1.4 K/mm3 (1.2-5.4) 10/04/17 04:33 [place] # 0.8 K/mm3 (0.0-0.8) 10/04/17 04:33 Eos # 0.1 K/mm3 (0.0-0.4) 10/04/17 04:33 Baso # 0.0 K/mm3 (0.0-0.1) 10/04/17 04:33 Add Manual Diff Complete 10/10/17 04:53 Total Counted 100 10/10/17 04:53 Seg Neutrophils % Pot [place] 10/10/17 04:53 Seg Neuts % (Manual) 83.0 % (40.0-70.0) H 10/10/17 04:53 Band Neutrophils % 1.0 % 10/10/17 04:53 Lymphocytes % (Manual) 7.0 % (13.4-35.0) L 10/10/17 04:53 Reactive Lymphs % (Man) 0 % 10/10/17 04:53 Monocytes % (Manual) 9.0 % (0.0-7.3) H 10/10/17 04:53 Eosinophils % (Manual) 0 % (0.0-4.3) 10/10/17 04:53 Basophils % (Manual) 0 % (0.0-1.8) 10/10/17 04:53 Metamyelocytes % 0 % 10/10/17 04:53 Myelocytes % 0 % 10/10/17 04:53 Promyelocytes % 0 % 10/10/17 04:53 Blast Cells % 0 % 10/10/17 04:53 Nucleated RBC % Not Reportable 10/10/17 04:53 Seg Neutrophils # 5.7 K/mm3 (1.8-7.7) 10/04/17 04:33 Seg Neutrophils # Man 13.4 K/mm3 (1.8-7.7) H 10/10/17 04:53 Band Neutrophils # 0.2 K/mm3 10/10/17 04:53 Lymphocytes # (Manual) 1.1 K/mm3 (1.2-5.4) L 10/10/17 04:53 Abs React Lymphs (Man) 0.0 K/mm3 10/10/17 04:53 Monocytes # (Manual) 1.4 K/mm3 (0.0-0.8) H 10/10/17 04:53 Eosinophils # (Manual) 0.0 K/mm3 (0.0-0.4) 10/10/17 04:53 Basophils # (Manual) 0.0 K/mm3 (0.0-0.1) 10/10/17 04:53 Metamyelocytes # 0.0 K/mm3 10/10/17 04:53 Myelocytes # 0.0 K/mm3 10/10/17 04:53 Promyelocytes # 0.0 K/mm3 10/10/17 04:53 Blast Cells # 0.0 K/mm3 10/10/17 04:53 WBC Morphology Not Reportable 10/10/17 04:53 Hypersegmented Neuts Not Reportable 10/10/17 04:53 Hyposegmented Neuts Not Reportable 10/10/17 04:53 Hypogranular Neuts Not Reportable 10/10/17 04:53 Smudge Cells Not Reportable 10/10/17 04:53 Toxic Granulation Not Reportable 10/10/17 04:53 Toxic Vacuolation Not Reportable 10/10/17 04:53 Dohle Bodies Not Reportable 10/10/17 04:53 Pelger-Huet Anomaly Not Reportable 10/10/17 04:53 Eh Rods Not Reportable 10/10/17 04:53 Platelet Estimate Cons 10/10/17 04:53 Clumped Platelets Not Reportable 10/10/17 04:53 Plt Clumps, EDTA Not Reportable 10/10/17 04:53 Large Platelets Few 10/10/17 04:53 Giant Platelets Not Reportable 10/10/17 04:53 Platelet Satelliting Not Reportable 10/10/17 04:53 Plt Morphology Comment Not Reportable 10/10/17 04:53 RBC Morphology Normal 10/10/17 04:53 Dimorphic RBCs Not Reportable 10/10/17 04:53 Polychromasia Not Reportable 10/10/17 04:53 Hypochromasia Not Reportable 10/10/17 04:53 Poikilocytosis Not Reportable 10/10/17 04:53 Anisocytosis Not Reportable 10/10/17 04:53 Microcytosis Not Reportable 10/10/17 04:53 Macrocytosis Not Reportable 10/10/17 04:53 Spherocytes Not Reportable 10/10/17 04:53 Pappenheimer Bodies Not Reportable 10/10/17 04:53 Sickle Cells Not Reportable 10/10/17 04:53 Target Cells Not Reportable 10/10/17 04:53 Tear Drop Cells Not Reportable 10/10/17 04:53 Ovalocytes Not Reportable 10/10/17 04:53 Helmet Cells Not Reportable 10/10/17 04:53 [place] Bodies Not Reportable 10/10/17 04:53 [place] Rings Not Reportable 10/10/17 04:53 [place] Cells Not Reportable 10/10/17 04:53 Bite Cells Not Reportable 10/10/17 04:53 Crenated Cell Not Reportable 10/10/17 04:53 Elliptocytes Not Reportable 10/10/17 04:53 Acanthocytes (Spur) Not Reportable 10/10/17 04:53 Rouleaux Not Reportable 10/10/17 04:53 Hemoglobin C Crystals Not Reportable 10/10/17 04:53 Schistocytes Not Reportable 10/10/17 04:53 Malaria parasites Not Reportable 10/10/17 04:53 [place] Bodies Not Reportable 10/10/17 04:53 Hem Pathologist Commnt No 10/10/17 04:53 PT 13.2 Sec. (12.2-14.9) 10/07/17 14:47 INR 0.95 (0.87-1.13) 10/07/17 14:47 APTT 26.0 Sec. (24.2-36.6) 10/01/17 00:58 Thrombin Time 17.0 Sec. (15.1-19.6) 10/01/17 00:58 Sodium 135 mmol/L (137-145) L 10/10/17 04:53 Potassium 4.3 mmol/L (3.6-5.0) 10/10/17 04:53 Chloride 96.6 mmol/L (98-107) L 10/10/17 04:53 Carbon Dioxide 26 mmol/L (22-30) 10/10/17 04:53 Anion Gap 17 mmol/L 10/10/17 04:53 BUN 20 mg/dL (9-20) 10/10/17 04:53 Creatinine 0.9 mg/dL (0.8-1.5) 10/10/17 04:53 Estimated GFR > 60 ml/min 10/10/17 04:53 BUN/Creatinine Ratio 22 % 10/10/17 04:53 Glucose 266 mg/dL (75-100) H 10/10/17 04:53 POC Glucose 121 (70-105) H 10/07/17 11:55 Hemoglobin A1c 6.7 % (4-6) H 10/02/17 05:02 Calcium 9.0 mg/dL (8.4-10.2) 10/10/17 04:53 Phosphorus 3.60 mg/dL (2.5-4.5) 10/10/17 04:53 Magnesium 1.90 mg/dL (1.7-2.3) 10/10/17 04:53 Total Bilirubin 0.20 mg/dL (0.1-1.2) 10/10/17 04:53 AST 50 units/L (5-40) H 10/10/17 04:53 ALT 104 units/L (7-56) H 10/10/17 04:53 Alkaline Phosphatase 79 units/L (35-129) 10/10/17 04:53 Troponin T < 0.010 ng/mL (0.00-0.029) 10/01/17 00:58 Total Protein 6.3 g/dL (6.3-8.2) 10/10/17 04:53 Albumin 3.3 g/dL (3.9-5) L 10/10/17 04:53 Albumin/Globulin Ratio 1.1 % 10/10/17 04:53 Triglycerides 128 mg/dL (2-149) 10/02/17 05:02 Cholesterol 130 mg/dL (50-199) 10/02/17 05:02 LDL Cholesterol Direct 78 mg/dL (50-130) 10/02/17 05:02 HDL Cholesterol 31 mg/dL (40-59) L 10/02/17 05:02 Cholesterol/HDL Ratio 4.19 % 10/02/17 05:02 Vitamin B12 641.8 pg/mL (211-911) 10/01/17 20:04 RBC Folic Acid See scanned report 10/01/17 20:04 TSH 1.050 mlU/mL (0.270-4.200) 10/01/17 20:04 Urine Color Yellow (Yellow) 10/01/17 05:43 Urine Turbidity Clear (Clear) 10/01/17 05:43 Urine pH 5.0 (5.0-7.0) 10/01/17 05:43 Ur Specific [place] 1.024 (1.003-1.030) 10/01/17 05:43 Urine Protein <15 mg/dl mg/dL (Negative) 10/01/17 05:43 Urine Glucose (UA) Neg mg/dL (Negative) 10/01/17 05:43 Urine Ketones Neg mg/dL (Negative) 10/01/17 05:43 Urine Blood Neg (Negative) 10/01/17 05:43 Urine Nitrite Neg (Negative) 10/01/17 05:43 Urine Bilirubin Neg (Negative) 10/01/17 05:43 Urine Urobilinogen < 2.0 mg/dL (<2.0) 10/01/17 05:43 Ur Leukocyte Esterase Neg (Negative) 10/01/17 05:43 Urine WBC (Auto) 1.0 /HPF (0.0-6.0) 10/01/17 05:43 Urine RBC (Auto) 3.0 /HPF (0.0-6.0) 10/01/17 05:43 U Epithel Cells (Auto) 1.0 /HPF (0-13.0) 10/01/17 05:43 Urine Mucus Few /HPF 10/01/17 05:43 CSF Appearance Cloudy 10/10/17 Unknown CSF Color White 10/10/17 Unknown CSF WBC 42 /mm3 (1-10) 10/10/17 Unknown CSF RBC 1 /mm3 (0-0) 10/10/17 Unknown CSF Seg Neutrophils Not Reportable 10/10/17 Unknown CSF Lymphocytes % Not Reportable 10/10/17 Unknown CSF Reactive Lymphs Not Reportable 10/10/17 Unknown CSF Monocytes % Not Reportable 10/10/17 Unknown CSF Eosinophils % Not Reportable 10/10/17 Unknown CSF Basophils Not Reportable 10/10/17 Unknown CSF Pathologist Review C 10/10/17 Unknown CSF Glucose 148 mg/dL 10/10/17 Unknown CSF Total Protein 55 mg/dL 10/10/17 Unknown Urine Opiates Screen Presumptive negative 10/01/17 05:43 Urine Methadone Screen Presumptive negative 10/01/17 05:43 Ur Barbiturates Screen Presumptive negative 10/01/17 05:43 Ur Phencyclidine Scrn Presumptive negative 10/01/17 05:43 Ur Amphetamines Screen Presumptive negative 10/01/17 05:43 U Benzodiazepines Scrn Presumptive negative 10/01/17 05:43 Urine Cocaine Screen Presumptive negative 10/01/17 05:43 U Marijuana (THC) Screen Presumptive positive 10/01/17 05:43 Drugs of Abuse Note Disclamer 10/01/17 05:43
[2017-10-10] MEDS: SODIUM CHLORIDE FLUSH SYRINGE 10 ML IV PRN (22:55)
[2017-10-11] MEDS: TENORMIN PO SCH (09:01)
[2017-10-11] MEDS: LOVENOX SUB-Q SCH (09:01)
[2017-10-11] MEDS: NACL 0.9% 1000 ML 2,000 ML IV SCH (15:18)
[2017-10-11] MEDS: NORCO 5/325 PO PRN ×2 (16:53→22:50)
[2017-10-11] MEDS: SODIUM CHLORIDE FLUSH SYRINGE 10 ML IV PRN (21:04)
[2017-10-12] MEDS: NACL 0.9% 1000 ML 2,000 ML IV SCH (04:44)
[2017-10-12] MEDS: TENORMIN PO SCH (09:04)
[2017-10-12] MEDS: LOVENOX SUB-Q SCH (09:04)
[2017-10-12] MEDS: NORCO 5/325 PO PRN (12:10)
--- NOTE | 2017-10-12 12:17 | Progress Note ---
Assessment and Plan Assessment and plan: --Acute CVA with right-sided hemiparesis, appears to be ischemic stroke right lateral ellen and medullary Continue aspirin and statin, neuro checks, Follow neuro workup Physical therapy occupational therapy, neurology following CSF has slight increase in protein but not suggestive of vasculitis--the WBC c/ w ischemic stroke Possible acute subacute/ rehabilitation when clinically stable --Bilateral lower extremity weakness MRI lumbar spine, thoracic spine findings reviewed, discussed with neurology Follow PT and OT evaluation and recommendations May need acute rehabilitation, --Type 2 diabetes mellitus; Accu-Chek sliding scale coverage and ADA diet. A1c 6.7, elevated blood sugars probably secondary to Solu-Medrol --Ongoing tobacco use; Smoking cessation counseling and nicotine patch as needed --DVT prophylaxis; Lovenox Physical therapy occupational therapy, rehabilitation Closely monitor the patient and adjust management as needed Disposition; follow clinically, follow neurology recommendations History Interval history: 42-year-old male patient with significant past medical history of bronchial asthma was admitted through emergency room with right-sided weakness, Neuro workup is consistent with acute CVA with right- sided hemiparesis Patient also has bilateral lower extremity weakness, had extensive neuro workup , neurology following No new issues overnight. Hospitalist Physical - Constitutional Vitals: Temp Pulse Resp BP Pulse Ox 97.9 F 57 L 20 127/79 97 10/12/17 08:26 10/12/17 10:00 10/12/17 10:00 10/12/17 08:26 10/12/17 10:00 General appearance: Present: no acute distress, well-nourished - EENT Eyes: Present: PERRL, EOM intact ENT: hearing intact, clear oral mucosa, dentition normal - Neck Neck: Present: supple, normal ROM - Respiratory Respiratory effort: normal Respiratory: bilateral: CTA - Cardiovascular Rhythm: regular Heart Sounds: Present: S1 & S2. Absent: gallop, rub - Extremities Extremities: no ischemia, No edema, Full ROM - Abdominal General gastrointestinal: soft, non-tender, non-distended, normal bowel sounds - Integumentary Integumentary: Present: clear, warm, dry - Neurologic Neurologic: CNII-XII intact, moves all extremities Results - Labs CBC & Chem 7: 10/10/17 04:53 10/10/17 04:53 Labs: Laboratory Last Values WBC 16.1 K/mm3 (4.5-11.0) H 10/10/17 04:53 RBC 4.85 M/mm3 (3.65-5.03) 10/10/17 04:53 Hgb 15.3 gm/dl (11.8-15.2) H 10/10/17 04:53 Hct 45.6 % (35.5-45.6) 10/10/17 04:53 MCV 94 fl (84-94) 10/10/17 04:53 MCH 32 pg (28-32) 10/10/17 04:53 MCHC 33 % (32-34) 10/10/17 04:53 RDW 13.1 % (13.2-15.2) L 10/10/17 04:53 Plt Count 208 K/mm3 (140-440) 10/10/17 04:53 Lymph % (Auto) 17.5 % (13.4-35.0) 10/04/17 04:33 [place] % (Auto) 10.0 % (0.0-7.3) H 10/04/17 04:33 Eos % (Auto) 0.8 % (0.0-4.3) 10/04/17 04:33 Baso % (Auto) 0.4 % (0.0-1.8) 10/04/17 04:33 Lymph # 1.4 K/mm3 (1.2-5.4) 10/04/17 04:33 [place] # 0.8 K/mm3 (0.0-0.8) 10/04/17 04:33 Eos # 0.1 K/mm3 (0.0-0.4) 10/04/17 04:33 Baso # 0.0 K/mm3 (0.0-0.1) 10/04/17 04:33 Add Manual Diff Complete 10/10/17 04:53 Total Counted 100 10/10/17 04:53 Seg Neutrophils % Medical Record Assistant 10/10/17 04:53 Seg Neuts % (Manual) 83.0 % (40.0-70.0) H 10/10/17 04:53 Band Neutrophils % 1.0 % 10/10/17 04:53 Lymphocytes % (Manual) 7.0 % (13.4-35.0) L 10/10/17 04:53 Reactive Lymphs % (Man) 0 % 10/10/17 04:53 Monocytes % (Manual) 9.0 % (0.0-7.3) H 10/10/17 04:53 Eosinophils % (Manual) 0 % (0.0-4.3) 10/10/17 04:53 Basophils % (Manual) 0 % (0.0-1.8) 10/10/17 04:53 Metamyelocytes % 0 % 10/10/17 04:53 Myelocytes % 0 % 10/10/17 04:53 Promyelocytes % 0 % 10/10/17 04:53 Blast Cells % 0 % 10/10/17 04:53 Nucleated RBC % Not Reportable 10/10/17 04:53 Seg Neutrophils # 5.7 K/mm3 (1.8-7.7) 10/04/17 04:33 Seg Neutrophils # Man 13.4 K/mm3 (1.8-7.7) H 10/10/17 04:53 Band Neutrophils # 0.2 K/mm3 10/10/17 04:53 Lymphocytes # (Manual) 1.1 K/mm3 (1.2-5.4) L 10/10/17 04:53 Abs React Lymphs (Man) 0.0 K/mm3 10/10/17 04:53 Monocytes # (Manual) 1.4 K/mm3 (0.0-0.8) H 10/10/17 04:53 Eosinophils # (Manual) 0.0 K/mm3 (0.0-0.4) 10/10/17 04:53 Basophils # (Manual) 0.0 K/mm3 (0.0-0.1) 10/10/17 04:53 Metamyelocytes # 0.0 K/mm3 10/10/17 04:53 Myelocytes # 0.0 K/mm3 10/10/17 04:53 Promyelocytes # 0.0 K/mm3 10/10/17 04:53 Blast Cells # 0.0 K/mm3 10/10/17 04:53 WBC Morphology Not Reportable 10/10/17 04:53 Hypersegmented Neuts Not Reportable 10/10/17 04:53 Hyposegmented Neuts Not Reportable 10/10/17 04:53 Hypogranular Neuts Not Reportable 10/10/17 04:53 Smudge Cells Not Reportable 10/10/17 04:53 Toxic Granulation Not Reportable 10/10/17 04:53 Toxic Vacuolation Not Reportable 10/10/17 04:53 Dohle Bodies Not Reportable 10/10/17 04:53 Pelger-Huet Anomaly Not Reportable 10/10/17 04:53 Eh Rods Not Reportable 10/10/17 04:53 Platelet Estimate Cons 10/10/17 04:53 Clumped Platelets Not Reportable 10/10/17 04:53 Plt Clumps, EDTA Not Reportable 10/10/17 04:53 Large Platelets Few 10/10/17 04:53 Giant Platelets Not Reportable 10/10/17 04:53 Platelet Satelliting Not Reportable 10/10/17 04:53 Plt Morphology Comment Not Reportable 10/10/17 04:53 RBC Morphology Normal 10/10/17 04:53 Dimorphic RBCs Not Reportable 10/10/17 04:53 Polychromasia Not Reportable 10/10/17 04:53 Hypochromasia Not Reportable 10/10/17 04:53 Poikilocytosis Not Reportable 10/10/17 04:53 Anisocytosis Not Reportable 10/10/17 04:53 Microcytosis Not Reportable 10/10/17 04:53 Macrocytosis Not Reportable 10/10/17 04:53 Spherocytes Not Reportable 10/10/17 04:53 Pappenheimer Bodies Not Reportable 10/10/17 04:53 Sickle Cells Not Reportable 10/10/17 04:53 Target Cells Not Reportable 10/10/17 04:53 Tear Drop Cells Not Reportable 10/10/17 04:53 Ovalocytes Not Reportable 10/10/17 04:53 Helmet Cells Not Reportable 10/10/17 04:53 [place] Bodies Not Reportable 10/10/17 04:53 [place] Rings Not Reportable 10/10/17 04:53 [place] Cells Not Reportable 10/10/17 04:53 Bite Cells Not Reportable 10/10/17 04:53 Crenated Cell Not Reportable 10/10/17 04:53 Elliptocytes Not Reportable 10/10/17 04:53 Acanthocytes (Spur) Not Reportable 10/10/17 04:53 Rouleaux Not Reportable 10/10/17 04:53 Hemoglobin C Crystals Not Reportable 10/10/17 04:53 Schistocytes Not Reportable 10/10/17 04:53 Malaria parasites Not Reportable 10/10/17 04:53 [place] Bodies Not Reportable 10/10/17 04:53 Hem Pathologist Commnt No 10/10/17 04:53 PT 13.2 Sec. (12.2-14.9) 10/07/17 14:47 INR 0.95 (0.87-1.13) 10/07/17 14:47 APTT 26.0 Sec. (24.2-36.6) 10/01/17 00:58 Thrombin Time 17.0 Sec. (15.1-19.6) 10/01/17 00:58 Sodium 135 mmol/L (137-145) L 10/10/17 04:53 Potassium 4.3 mmol/L (3.6-5.0) 10/10/17 04:53 Chloride 96.6 mmol/L (98-107) L 10/10/17 04:53 Carbon Dioxide 26 mmol/L (22-30) 10/10/17 04:53 Anion Gap 17 mmol/L 10/10/17 04:53 BUN 20 mg/dL (9-20) 10/10/17 04:53 Creatinine 0.9 mg/dL (0.8-1.5) 10/10/17 04:53 Estimated GFR > 60 ml/min 10/10/17 04:53 BUN/Creatinine Ratio 22 % 10/10/17 04:53 Glucose 266 mg/dL (75-100) H 10/10/17 04:53 POC Glucose 121 (70-105) H 10/07/17 11:55 Hemoglobin A1c 6.7 % (4-6) H 10/02/17 05:02 Calcium 9.0 mg/dL (8.4-10.2) 10/10/17 04:53 Phosphorus 3.60 mg/dL (2.5-4.5) 10/10/17 04:53 Magnesium 1.90 mg/dL (1.7-2.3) 10/10/17 04:53 Total Bilirubin 0.20 mg/dL (0.1-1.2) 10/10/17 04:53 AST 50 units/L (5-40) H 10/10/17 04:53 ALT 104 units/L (7-56) H 10/10/17 04:53 Alkaline Phosphatase 79 units/L (35-129) 10/10/17 04:53 Troponin T < 0.010 ng/mL (0.00-0.029) 10/01/17 00:58 C-Reactive Protein 0.00 mg/dL (0.00-1.30) 10/10/17 21:18 Total Protein 6.3 g/dL (6.3-8.2) 10/10/17 04:53 Albumin 3.3 g/dL (3.9-5) L 10/10/17 04:53 Albumin/Globulin Ratio 1.1 % 10/10/17 04:53 Triglycerides 128 mg/dL (2-149) 10/02/17 05:02 Cholesterol 130 mg/dL (50-199) 10/02/17 05:02 LDL Cholesterol Direct 78 mg/dL (50-130) 10/02/17 05:02 HDL Cholesterol 31 mg/dL (40-59) L 10/02/17 05:02 Cholesterol/HDL Ratio 4.19 % 10/02/17 05:02 Vitamin B12 641.8 pg/mL (211-911) 10/01/17 20:04 RBC Folic Acid 522 ng/mL (>280) 10/01/17 20:04 TSH 1.050 mlU/mL (0.270-4.200) 10/01/17 20:04 Urine Color Yellow (Yellow) 10/01/17 05:43 Urine Turbidity Clear (Clear) 10/01/17 05:43 Urine pH 5.0 (5.0-7.0) 10/01/17 05:43 Ur Specific [place] 1.024 (1.003-1.030) 10/01/17 05:43 Urine Protein <15 mg/dl mg/dL (Negative) 10/01/17 05:43 Urine Glucose (UA) Neg mg/dL (Negative) 10/01/17 05:43 Urine Ketones Neg mg/dL (Negative) 10/01/17 05:43 Urine Blood Neg (Negative) 10/01/17 05:43 Urine Nitrite Neg (Negative) 10/01/17 05:43 Urine Bilirubin Neg (Negative) 10/01/17 05:43 Urine Urobilinogen < 2.0 mg/dL (<2.0) 10/01/17 05:43 Ur Leukocyte Esterase Neg (Negative) 10/01/17 05:43 Urine WBC (Auto) 1.0 /HPF (0.0-6.0) 10/01/17 05:43 Urine RBC (Auto) 3.0 /HPF (0.0-6.0) 10/01/17 05:43 U Epithel Cells (Auto) 1.0 /HPF (0-13.0) 10/01/17 05:43 Urine Mucus Few /HPF 10/01/17 05:43 CSF Appearance Cloudy 10/10/17 Unknown CSF Color White 10/10/17 Unknown CSF WBC 42 /mm3 (1-10) 10/10/17 Unknown CSF RBC 1 /mm3 (0-0) 10/10/17 Unknown CSF Seg Neutrophils Not Reportable 10/10/17 Unknown CSF Lymphocytes % Not Reportable 10/10/17 Unknown CSF Reactive Lymphs Not Reportable 10/10/17 Unknown CSF Monocytes % Not Reportable 10/10/17 Unknown CSF Eosinophils % Not Reportable 10/10/17 Unknown CSF Basophils Not Reportable 10/10/17 Unknown CSF Pathologist Review C 10/10/17 Unknown CSF Glucose 148 mg/dL 10/10/17 Unknown CSF Total Protein 55 mg/dL 10/10/17 Unknown Urine Opiates Screen Presumptive negative 10/01/17 05:43 Urine Methadone Screen Presumptive negative 10/01/17 05:43 Ur Barbiturates Screen Presumptive negative 10/01/17 05:43 Ur Phencyclidine Scrn Presumptive negative 10/01/17 05:43 Ur Amphetamines Screen Presumptive negative 10/01/17 05:43 U Benzodiazepines Scrn Presumptive negative 10/01/17 05:43 Urine Cocaine Screen Presumptive negative 10/01/17 05:43 U Marijuana (THC) Screen Presumptive positive 10/01/17 05:43 Drugs of Abuse Note Disclamer 10/01/17 05:43
--- NOTE | 2017-10-12 14:36 | Progress Note ---
Subjective Date of service: 10/12/17 Principal diagnosis: acute ischemic stroke, hypocalcemia, diabetes mellitus type 2, Polycythemia Interval history: alert / swallowing well / no pain better motor function in the legs and right arm fill facila strength and EOM's no vomiting / no visual problems Imp steriods are helping continue same meds Objective - Vital Sign Vital Signs - 12hr 10/12/17 10/12/17 10/12/17 05:30 08:26 09:04 Temperature 98.7 F 97.9 F Pulse Rate 55 L 57 L 57 L Pulse Rate [ From Monitor] Respiratory 18 20 Rate Blood Pressure 127/79 Blood Pressure 121/75 [Left] O2 Sat by Pulse 97 97 Oximetry 10/12/17 10:00 Temperature Pulse Rate 55 L Pulse Rate [ 57 L From Monitor] Respiratory 20 Rate Blood Pressure Blood Pressure [Left] O2 Sat by Pulse 97 Oximetry - Laboratory Findings CBC and BMP: 10/10/17 04:53 10/10/17 04:53 Abnormal Lab Findings: Abnormal Labs 10/01/17 10/01/17 10/01/17 00:39 00:58 00:58 WBC Hgb 15.6 H Hct 47.3 H MCV 95 H RDW 12.8 L Lymph % (Auto) 10.4 L [place] % (Auto) Lymph # 1.0 L Seg Neutrophils % 83.7 H Seg Neuts % (Manual) Lymphocytes % (Manual) Monocytes % (Manual) Seg Neutrophils # 7.8 H Seg Neutrophils # Man Lymphocytes # (Manual) Monocytes # (Manual) Sodium Chloride Glucose 145 H POC Glucose 142 H Hemoglobin A1c Calcium 10.3 H AST ALT Total Protein Albumin HDL Cholesterol 10/02/17 10/02/17 10/02/17 05:02 05:02 05:02 WBC Hgb Hct MCV RDW Lymph % (Auto) [place] % (Auto) Lymph # Seg Neutrophils % 77.0 H Seg Neuts % (Manual) Lymphocytes % (Manual) Monocytes % (Manual) Seg Neutrophils # Seg Neutrophils # Man Lymphocytes # (Manual) Monocytes # (Manual) Sodium Chloride Glucose POC Glucose Hemoglobin A1c 6.7 H Calcium AST ALT Total Protein Albumin 3.7 L HDL Cholesterol 31 L 10/03/17 10/03/17 10/04/17 04:49 04:49 04:33 WBC Hgb Hct MCV RDW 13.1 L 12.9 L Lymph % (Auto) [place] % (Auto) 9.4 H 10.0 H Lymph # Seg Neutrophils % 70.1 H 71.3 H Seg Neuts % (Manual) Lymphocytes % (Manual) Monocytes % (Manual) Seg Neutrophils # Seg Neutrophils # Man Lymphocytes # (Manual) Monocytes # (Manual) Sodium Chloride Glucose POC Glucose Hemoglobin A1c Calcium AST ALT Total Protein Albumin 3.4 L HDL Cholesterol 10/04/17 10/07/17 10/10/17 04:33 11:55 04:53 WBC 16.1 H Hgb 15.3 H Hct MCV RDW 13.1 L Lymph % (Auto) [place] % (Auto) Lymph # Seg Neutrophils % Seg Neuts % (Manual) 83.0 H Lymphocytes % (Manual) 7.0 L Monocytes % (Manual) 9.0 H Seg Neutrophils # Seg Neutrophils # Man 13.4 H Lymphocytes # (Manual) 1.1 L Monocytes # (Manual) 1.4 H Sodium Chloride Glucose 134 H POC Glucose 121 H Hemoglobin A1c Calcium AST ALT Total Protein 6.0 L Albumin 3.2 L HDL Cholesterol 10/10/17 04:53 WBC Hgb Hct MCV RDW Lymph % (Auto) [place] % (Auto) Lymph # Seg Neutrophils % Seg Neuts % (Manual) Lymphocytes % (Manual) Monocytes % (Manual) Seg Neutrophils # Seg Neutrophils # Man Lymphocytes # (Manual) Monocytes # (Manual) Sodium 135 L Chloride 96.6 L Glucose 266 H POC Glucose Hemoglobin A1c Calcium AST 50 H ALT 104 H Total Protein Albumin 3.3 L HDL Cholesterol
[2017-10-13] MEDS: NACL 0.9% 1000 ML 2,000 ML IV SCH (03:35)
[2017-10-13 06:09] LABS: Hematocrit 44.9 % (35.5-45.6); Mean Corpuscular HGB Conc 33 % (32-34); Mean Corpuscular Hemoglobin 31 pg (28-32); Mean Corpuscular Volume 94 fl (84-94); Platelet Count 223 K/mm3 (140-440); Red Cell Distribution Width 12.8 % (13.2-15.2)
[2017-10-13 06:31] LABS: BUN/Creatinine Ratio 33; Blood Urea Nitrogen 23 mg/dL (9-20); Hemolysis Index 38
[2017-10-13 08:56] LABS: Band Neutrophils # (Manual) 0.2 K/mm3; Basophils % (Manual) 0 % (0.0-1.8); Eosinophils % (Manual) 0 % (0.0-4.3); RBC Morphology Normal; Total Cells Counted 100
[2017-10-13] MEDS: LOVENOX SUB-Q SCH (11:36)
[2017-10-13] MEDS: TENORMIN PO SCH (11:37)
--- NOTE | 2017-10-13 14:10 | Progress Note ---
Assessment and Plan Assessment and plan: --Acute CVA with right-sided hemiparesis, appears to be ischemic stroke right lateral ellen and medullary Continue aspirin and statin, neuro checks, Physical therapy occupational therapy, neurology following CSF has slight increase in protein but not suggestive of vasculitis--the WBC c/ w ischemic stroke Possible acute subacute/ rehabilitation when clinically stable --Bilateral lower extremity weakness MRI lumbar spine, thoracic spine findings reviewed, discussed with neurology Follow PT and OT evaluation and recommendations May need acute rehabilitation, --Type 2 diabetes mellitus; Accu-Chek sliding scale coverage and ADA diet. A1c 6.7, elevated blood sugars probably secondary to Solu-Medrol --Ongoing tobacco use; Smoking cessation counseling and nicotine patch as needed --DVT prophylaxis; Lovenox Physical therapy occupational therapy, rehabilitation Closely monitor the patient and adjust management as needed Disposition; follow clinically, follow neurology recommendations History Interval history: 42-year-old male patient with significant past medical history of bronchial asthma was admitted through emergency room with right-sided weakness, Neuro workup is consistent with acute CVA with right- sided hemiparesis Patient also has bilateral lower extremity weakness, had extensive neuro workup , neurology following No new issues overnight. Hospitalist Physical - Constitutional Vitals: Temp Pulse Resp BP Pulse Ox 98.1 F 55 L 18 134/80 95 10/13/17 12:31 10/13/17 12:31 10/13/17 12:31 10/13/17 12:31 10/13/17 12:31 General appearance: Present: no acute distress, well-nourished - EENT Eyes: Present: PERRL, EOM intact ENT: hearing intact, clear oral mucosa, dentition normal - Neck Neck: Present: supple, normal ROM - Respiratory Respiratory effort: normal Respiratory: bilateral: CTA - Cardiovascular Rhythm: regular Heart Sounds: Present: S1 & S2. Absent: gallop, rub - Extremities Extremities: no ischemia, No edema, Full ROM - Abdominal General gastrointestinal: soft, non-tender, non-distended, normal bowel sounds - Integumentary Integumentary: Present: clear, warm, dry - Neurologic Neurologic: CNII-XII intact, moves all extremities Results - Labs CBC & Chem 7: 10/13/17 04:54 10/13/17 04:54 Labs: Laboratory Last Values WBC 21.4 K/mm3 (4.5-11.0) H 10/13/17 04:54 RBC 4.80 M/mm3 (3.65-5.03) 10/13/17 04:54 Hgb 15.0 gm/dl (11.8-15.2) 10/13/17 04:54 Hct 44.9 % (35.5-45.6) 10/13/17 04:54 MCV 94 fl (84-94) 10/13/17 04:54 MCH 31 pg (28-32) 10/13/17 04:54 MCHC 33 % (32-34) 10/13/17 04:54 RDW 12.8 % (13.2-15.2) L 10/13/17 04:54 Plt Count 223 K/mm3 (140-440) 10/13/17 04:54 Lymph % (Auto) 17.5 % (13.4-35.0) 10/04/17 04:33 [place] % (Auto) 10.0 % (0.0-7.3) H 10/04/17 04:33 Eos % (Auto) 0.8 % (0.0-4.3) 10/04/17 04:33 Baso % (Auto) 0.4 % (0.0-1.8) 10/04/17 04:33 Lymph # 1.4 K/mm3 (1.2-5.4) 10/04/17 04:33 [place] # 0.8 K/mm3 (0.0-0.8) 10/04/17 04:33 Eos # 0.1 K/mm3 (0.0-0.4) 10/04/17 04:33 Baso # 0.0 K/mm3 (0.0-0.1) 10/04/17 04:33 Add Manual Diff Complete 10/13/17 04:54 Total Counted 100 10/13/17 04:54 Seg Neutrophils % [place] 10/13/17 04:54 Seg Neuts % (Manual) 90.0 % (40.0-70.0) H 10/13/17 04:54 Band Neutrophils % 1.0 % 10/13/17 04:54 Lymphocytes % (Manual) 3.0 % (13.4-35.0) L 10/13/17 04:54 Reactive Lymphs % (Man) 0 % 10/13/17 04:54 Monocytes % (Manual) 4.0 % (0.0-7.3) 10/13/17 04:54 Eosinophils % (Manual) 0 % (0.0-4.3) 10/13/17 04:54 Basophils % (Manual) 0 % (0.0-1.8) 10/13/17 04:54 Metamyelocytes % 2.0 % 10/13/17 04:54 Myelocytes % 0 % 10/13/17 04:54 Promyelocytes % 0 % 10/13/17 04:54 Blast Cells % 0 % 10/13/17 04:54 Nucleated RBC % Not Reportable 10/13/17 04:54 Seg Neutrophils # 5.7 K/mm3 (1.8-7.7) 10/04/17 04:33 Seg Neutrophils # Man 19.3 K/mm3 (1.8-7.7) H 10/13/17 04:54 Band Neutrophils # 0.2 K/mm3 10/13/17 04:54 Lymphocytes # (Manual) 0.6 K/mm3 (1.2-5.4) L 10/13/17 04:54 Abs React Lymphs (Man) 0.0 K/mm3 10/13/17 04:54 Monocytes # (Manual) 0.9 K/mm3 (0.0-0.8) H 10/13/17 04:54 Eosinophils # (Manual) 0.0 K/mm3 (0.0-0.4) 10/13/17 04:54 Basophils # (Manual) 0.0 K/mm3 (0.0-0.1) 10/13/17 04:54 Metamyelocytes # 0.4 K/mm3 10/13/17 04:54 Myelocytes # 0.0 K/mm3 10/13/17 04:54 Promyelocytes # 0.0 K/mm3 10/13/17 04:54 Blast Cells # 0.0 K/mm3 10/13/17 04:54 WBC Morphology Not Reportable 10/13/17 04:54 Hypersegmented Neuts Not Reportable 10/13/17 04:54 Hyposegmented Neuts Not Reportable 10/13/17 04:54 Hypogranular Neuts Not Reportable 10/13/17 04:54 Smudge Cells Not Reportable 10/13/17 04:54 Toxic Granulation Not Reportable 10/13/17 04:54 Toxic Vacuolation Not Reportable 10/13/17 04:54 Dohle Bodies Not Reportable 10/13/17 04:54 Pelger-Huet Anomaly Not Reportable 10/13/17 04:54 Eh Rods Not Reportable 10/13/17 04:54 Platelet Estimate Appears normal 10/13/17 04:54 Clumped Platelets Not Reportable 10/13/17 04:54 Plt Clumps, EDTA Not Reportable 10/13/17 04:54 Large Platelets Not Reportable 10/13/17 04:54 Giant Platelets Not Reportable 10/13/17 04:54 Platelet Satelliting Not Reportable 10/13/17 04:54 Plt Morphology Comment Not Reportable 10/13/17 04:54 RBC Morphology Normal 10/13/17 04:54 Dimorphic RBCs Not Reportable 10/13/17 04:54 Polychromasia Not Reportable 10/13/17 04:54 Hypochromasia Not Reportable 10/13/17 04:54 Poikilocytosis Not Reportable 10/13/17 04:54 Anisocytosis Not Reportable 10/13/17 04:54 Microcytosis Not Reportable 10/13/17 04:54 Macrocytosis Not Reportable 10/13/17 04:54 Spherocytes Not Reportable 10/13/17 04:54 Pappenheimer Bodies Not Reportable 10/13/17 04:54 Sickle Cells Not Reportable 10/13/17 04:54 Target Cells Not Reportable 10/13/17 04:54 Tear Drop Cells Not Reportable 10/13/17 04:54 Ovalocytes Not Reportable 10/13/17 04:54 Helmet Cells Not Reportable 10/13/17 04:54 [place] Bodies Not Reportable 10/13/17 04:54 [place] Rings Not Reportable 10/13/17 04:54 [place] Cells Not Reportable 10/13/17 04:54 Bite Cells Not Reportable 10/13/17 04:54 Crenated Cell Not Reportable 10/13/17 04:54 Elliptocytes Not Reportable 10/13/17 04:54 Acanthocytes (Spur) Not Reportable 10/13/17 04:54 Rouleaux Not Reportable 10/13/17 04:54 Hemoglobin C Crystals Not Reportable 10/13/17 04:54 Schistocytes Not Reportable 10/13/17 04:54 Malaria parasites Not Reportable 10/13/17 04:54 [place] Bodies Not Reportable 10/13/17 04:54 Hem Pathologist Commnt No 10/13/17 04:54 PT 13.2 Sec. (12.2-14.9) 10/07/17 14:47 INR 0.95 (0.87-1.13) 10/07/17 14:47 APTT 26.0 Sec. (24.2-36.6) 10/01/17 00:58 Thrombin Time 17.0 Sec. (15.1-19.6) 10/01/17 00:58 Sodium 132 mmol/L (137-145) L 10/13/17 04:54 Potassium 4.7 mmol/L (3.6-5.0) 10/13/17 04:54 Chloride 93.8 mmol/L (98-107) L 10/13/17 04:54 Carbon Dioxide 25 mmol/L (22-30) 10/13/17 04:54 Anion Gap 18 mmol/L 10/13/17 04:54 BUN 23 mg/dL (9-20) H 10/13/17 04:54 Creatinine 0.7 mg/dL (0.8-1.5) L 10/13/17 04:54 Estimated GFR > 60 ml/min 10/13/17 04:54 BUN/Creatinine Ratio 33 % 10/13/17 04:54 Glucose 301 mg/dL (75-100) H 10/13/17 04:54 POC Glucose 121 (70-105) H 10/07/17 11:55 Hemoglobin A1c 6.7 % (4-6) H 10/02/17 05:02 Calcium 9.0 mg/dL (8.4-10.2) 10/13/17 04:54 Phosphorus 3.60 mg/dL (2.5-4.5) 10/10/17 04:53 Magnesium 1.90 mg/dL (1.7-2.3) 10/10/17 04:53 Total Bilirubin 0.20 mg/dL (0.1-1.2) 10/10/17 04:53 AST 50 units/L (5-40) H 10/10/17 04:53 ALT 104 units/L (7-56) H 10/10/17 04:53 Alkaline Phosphatase 79 units/L (35-129) 10/10/17 04:53 Troponin T < 0.010 ng/mL (0.00-0.029) 10/01/17 00:58 C-Reactive Protein 0.00 mg/dL (0.00-1.30) 10/10/17 21:18 Total Protein 6.3 g/dL (6.3-8.2) 10/10/17 04:53 Albumin 3.3 g/dL (3.9-5) L 10/10/17 04:53 Albumin/Globulin Ratio 1.1 % 10/10/17 04:53 Triglycerides 128 mg/dL (2-149) 10/02/17 05:02 Cholesterol 130 mg/dL (50-199) 10/02/17 05:02 LDL Cholesterol Direct 78 mg/dL (50-130) 10/02/17 05:02 HDL Cholesterol 31 mg/dL (40-59) L 10/02/17 05:02 Cholesterol/HDL Ratio 4.19 % 10/02/17 05:02 Vitamin B12 641.8 pg/mL (211-911) 10/01/17 20:04 RBC Folic Acid 522 ng/mL (>280) 10/01/17 20:04 TSH 1.050 mlU/mL (0.270-4.200) 10/01/17 20:04 Urine Color Yellow (Yellow) 10/01/17 05:43 Urine Turbidity Clear (Clear) 10/01/17 05:43 Urine pH 5.0 (5.0-7.0) 10/01/17 05:43 Ur Specific [place] 1.024 (1.003-1.030) 10/01/17 05:43 Urine Protein <15 mg/dl mg/dL (Negative) 10/01/17 05:43 Urine Glucose (UA) Neg mg/dL (Negative) 10/01/17 05:43 Urine Ketones Neg mg/dL (Negative) 10/01/17 05:43 Urine Blood Neg (Negative) 10/01/17 05:43 Urine Nitrite Neg (Negative) 10/01/17 05:43 Urine Bilirubin Neg (Negative) 10/01/17 05:43 Urine Urobilinogen < 2.0 mg/dL (<2.0) 10/01/17 05:43 Ur Leukocyte Esterase Neg (Negative) 10/01/17 05:43 Urine WBC (Auto) 1.0 /HPF (0.0-6.0) 10/01/17 05:43 Urine RBC (Auto) 3.0 /HPF (0.0-6.0) 10/01/17 05:43 U Epithel Cells (Auto) 1.0 /HPF (0-13.0) 10/01/17 05:43 Urine Mucus Few /HPF 10/01/17 05:43 CSF Appearance Cloudy 10/10/17 Unknown CSF Color White 10/10/17 Unknown CSF WBC 42 /mm3 (1-10) 10/10/17 Unknown CSF RBC 1 /mm3 (0-0) 10/10/17 Unknown CSF Seg Neutrophils Not Reportable 10/10/17 Unknown CSF Lymphocytes % Not Reportable 10/10/17 Unknown CSF Reactive Lymphs Not Reportable 10/10/17 Unknown CSF Monocytes % Not Reportable 10/10/17 Unknown CSF Eosinophils % Not Reportable 10/10/17 Unknown CSF Basophils Not Reportable 10/10/17 Unknown CSF Pathologist Review C 10/10/17 Unknown CSF Glucose 148 mg/dL 10/10/17 Unknown CSF Total Protein 55 mg/dL 10/10/17 Unknown Urine Opiates Screen Presumptive negative 10/01/17 05:43 Urine Methadone Screen Presumptive negative 10/01/17 05:43 Ur Barbiturates Screen Presumptive negative 10/01/17 05:43 Ur Phencyclidine Scrn Presumptive negative 10/01/17 05:43 Ur Amphetamines Screen Presumptive negative 10/01/17 05:43 U Benzodiazepines Scrn Presumptive negative 10/01/17 05:43 Urine Cocaine Screen Presumptive negative 10/01/17 05:43 U Marijuana (THC) Screen Presumptive positive 10/01/17 05:43 Drugs of Abuse Note Disclamer 10/01/17 05:43
[2017-10-14 06:56] LABS: Hematocrit 46.3 % (35.5-45.6); Hemoglobin 15.7 gm/dl (11.8-15.2); Mean Corpuscular HGB Conc 34 % (32-34); Mean Corpuscular Hemoglobin 31 pg (28-32); Mean Corpuscular Volume 92 fl (84-94); Platelet Count 244 K/mm3 (140-440); Red Blood Count 5.01 M/mm3 (3.65-5.03); Red Cell Distribution Width 12.9 % (13.2-15.2)
[2017-10-14 07:28] LABS: BUN/Creatinine Ratio 30; Blood Urea Nitrogen 24 mg/dL (9-20); Calcium 9.3 mg/dL (8.4-10.2); Hemolysis Index 15
[2017-10-14 08:15] LABS: Basophils % (Manual) 0 % (0.0-1.8); Eosinophils % (Manual) 0 % (0.0-4.3); Total Cells Counted 100
[2017-10-14 08:16] LABS: Platelet Estimate Consistent w Auto; RBC Morphology Normal
[2017-10-14] MEDS: TENORMIN PO SCH (11:13)
[2017-10-14] MEDS: LOVENOX SUB-Q SCH (11:13)
--- NOTE | 2017-10-14 11:30 | Progress Note ---
Assessment and Plan Assessment and plan: --Acute CVA with right-sided hemiparesis, appears to be ischemic stroke right lateral ellen and medullary Continue aspirin and statin, neuro checks, Physical therapy occupational therapy, neurology following CSF has slight increase in protein but not suggestive of vasculitis--the WBC c/ w ischemic stroke Possible acute subacute/ rehabilitation when clinically stable Possible [facility] in transfer. --Bilateral lower extremity weakness MRI lumbar spine, thoracic spine findings reviewed, discussed with neurology Follow PT and OT evaluation and recommendations May need acute rehabilitation, --Type 2 diabetes mellitus; Accu-Chek sliding scale coverage and ADA diet. A1c 6.7, elevated blood sugars probably secondary to Solu-Medrol --Ongoing tobacco use; Smoking cessation counseling and nicotine patch as needed --DVT prophylaxis; Lovenox Physical therapy occupational therapy, rehabilitation Closely monitor the patient and adjust management as needed Disposition; follow clinically, follow neurology recommendations History Interval history: 42-year-old male patient with significant past medical history of bronchial asthma was admitted through emergency room with right-sided weakness, Neuro workup is consistent with acute CVA with right- sided hemiparesis Patient also has bilateral lower extremity weakness, had extensive neuro workup , neurology following No new issues overnight. Hospitalist Physical - Constitutional Vitals: Temp Pulse Resp BP Pulse Ox 98.5 F 68 18 126/74 96 10/14/17 08:17 10/14/17 08:17 10/14/17 08:17 10/14/17 08:17 10/14/17 08:17 General appearance: Present: no acute distress, well-nourished - EENT Eyes: Present: PERRL, EOM intact ENT: hearing intact, clear oral mucosa, dentition normal - Neck Neck: Present: supple, normal ROM - Respiratory Respiratory effort: normal Respiratory: bilateral: CTA - Cardiovascular Rhythm: regular Heart Sounds: Present: S1 & S2. Absent: gallop, rub - Extremities Extremities: no ischemia, No edema, Full ROM - Abdominal General gastrointestinal: soft, non-tender, non-distended, normal bowel sounds - Integumentary Integumentary: Present: clear, warm, dry - Neurologic Neurologic: CNII-XII intact, moves all extremities Results - Labs CBC & Chem 7: 10/14/17 05:03 10/14/17 05:03 Labs: Laboratory Last Values WBC 19.6 K/mm3 (4.5-11.0) H 10/14/17 05:03 RBC 5.01 M/mm3 (3.65-5.03) 10/14/17 05:03 Hgb 15.7 gm/dl (11.8-15.2) H 10/14/17 05:03 Hct 46.3 % (35.5-45.6) H 10/14/17 05:03 MCV 92 fl (84-94) 10/14/17 05:03 MCH 31 pg (28-32) 10/14/17 05:03 MCHC 34 % (32-34) 10/14/17 05:03 RDW 12.9 % (13.2-15.2) L 10/14/17 05:03 Plt Count 244 K/mm3 (140-440) 10/14/17 05:03 Lymph % (Auto) 17.5 % (13.4-35.0) 10/04/17 04:33 [place] % (Auto) 10.0 % (0.0-7.3) H 10/04/17 04:33 Eos % (Auto) 0.8 % (0.0-4.3) 10/04/17 04:33 Baso % (Auto) 0.4 % (0.0-1.8) 10/04/17 04:33 Lymph # 1.4 K/mm3 (1.2-5.4) 10/04/17 04:33 [place] # 0.8 K/mm3 (0.0-0.8) 10/04/17 04:33 Eos # 0.1 K/mm3 (0.0-0.4) 10/04/17 04:33 Baso # 0.0 K/mm3 (0.0-0.1) 10/04/17 04:33 Add Manual Diff Complete 10/14/17 05:03 Total Counted 100 10/14/17 05:03 Seg Neutrophils % Industrial Specialist 10/14/17 05:03 Seg Neuts % (Manual) 94.0 % (40.0-70.0) H 10/14/17 05:03 Band Neutrophils % 0 % 10/14/17 05:03 Lymphocytes % (Manual) 3.0 % (13.4-35.0) L 10/14/17 05:03 Reactive Lymphs % (Man) 0 % 10/14/17 05:03 Monocytes % (Manual) 3.0 % (0.0-7.3) 10/14/17 05:03 Eosinophils % (Manual) 0 % (0.0-4.3) 10/14/17 05:03 Basophils % (Manual) 0 % (0.0-1.8) 10/14/17 05:03 Metamyelocytes % 0 % 10/14/17 05:03 Myelocytes % 0 % 10/14/17 05:03 Promyelocytes % 0 % 10/14/17 05:03 Blast Cells % 0 % 10/14/17 05:03 Nucleated RBC % Not Reportable 10/14/17 05:03 Seg Neutrophils # 5.7 K/mm3 (1.8-7.7) 10/04/17 04:33 Seg Neutrophils # Man 18.4 K/mm3 (1.8-7.7) H 10/14/17 05:03 Band Neutrophils # 0.0 K/mm3 10/14/17 05:03 Lymphocytes # (Manual) 0.6 K/mm3 (1.2-5.4) L 10/14/17 05:03 Abs React Lymphs (Man) 0.0 K/mm3 10/14/17 05:03 Monocytes # (Manual) 0.6 K/mm3 (0.0-0.8) 10/14/17 05:03 Eosinophils # (Manual) 0.0 K/mm3 (0.0-0.4) 10/14/17 05:03 Basophils # (Manual) 0.0 K/mm3 (0.0-0.1) 10/14/17 05:03 Metamyelocytes # 0.0 K/mm3 10/14/17 05:03 Myelocytes # 0.0 K/mm3 10/14/17 05:03 Promyelocytes # 0.0 K/mm3 10/14/17 05:03 Blast Cells # 0.0 K/mm3 10/14/17 05:03 WBC Morphology Not Reportable 10/14/17 05:03 Hypersegmented Neuts Not Reportable 10/14/17 05:03 Hyposegmented Neuts Not Reportable 10/14/17 05:03 Hypogranular Neuts Not Reportable 10/14/17 05:03 Smudge Cells Not Reportable 10/14/17 05:03 Toxic Granulation Not Reportable 10/14/17 05:03 Toxic Vacuolation Not Reportable 10/14/17 05:03 Dohle Bodies Not Reportable 10/14/17 05:03 Pelger-Huet Anomaly Not Reportable 10/14/17 05:03 Eh Rods Not Reportable 10/14/17 05:03 Platelet Estimate Consistent w auto 10/14/17 05:03 Clumped Platelets Not Reportable 10/14/17 05:03 Plt Clumps, EDTA Not Reportable 10/14/17 05:03 Large Platelets Not Reportable 10/14/17 05:03 Giant Platelets Not Reportable 10/14/17 05:03 Platelet Satelliting Not Reportable 10/14/17 05:03 Plt Morphology Comment Not Reportable 10/14/17 05:03 RBC Morphology Normal 10/14/17 05:03 Dimorphic RBCs Not Reportable 10/14/17 05:03 Polychromasia Not Reportable 10/14/17 05:03 Hypochromasia Not Reportable 10/14/17 05:03 Poikilocytosis Not Reportable 10/14/17 05:03 Anisocytosis Not Reportable 10/14/17 05:03 Microcytosis Not Reportable 10/14/17 05:03 Macrocytosis Not Reportable 10/14/17 05:03 Spherocytes Not Reportable 10/14/17 05:03 Pappenheimer Bodies Not Reportable 10/14/17 05:03 Sickle Cells Not Reportable 10/14/17 05:03 Target Cells Not Reportable 10/14/17 05:03 Tear Drop Cells Not Reportable 10/14/17 05:03 Ovalocytes Not Reportable 10/14/17 05:03 Helmet Cells Not Reportable 10/14/17 05:03 [place] Bodies Not Reportable 10/14/17 05:03 [place] Rings Not Reportable 10/14/17 05:03 Jalyn Cells Not Reportable 10/14/17 05:03 Bite Cells Not Reportable 10/14/17 05:03 Crenated Cell Not Reportable 10/14/17 05:03 Elliptocytes Not Reportable 10/14/17 05:03 Acanthocytes (Spur) Not Reportable 10/14/17 05:03 Rouleaux Not Reportable 10/14/17 05:03 Hemoglobin C Crystals Not Reportable 10/14/17 05:03 Schistocytes Not Reportable 10/14/17 05:03 Malaria parasites Not Reportable 10/14/17 05:03 [place] Bodies Not Reportable 10/14/17 05:03 Hem Pathologist Commnt No 10/14/17 05:03 PT 13.2 Sec. (12.2-14.9) 10/07/17 14:47 INR 0.95 (0.87-1.13) 10/07/17 14:47 APTT 26.0 Sec. (24.2-36.6) 10/01/17 00:58 Thrombin Time 17.0 Sec. (15.1-19.6) 10/01/17 00:58 Sodium 131 mmol/L (137-145) L 10/14/17 05:03 Potassium 4.6 mmol/L (3.6-5.0) 10/14/17 05:03 Chloride 90.0 mmol/L (98-107) L 10/14/17 05:03 Carbon Dioxide 25 mmol/L (22-30) 10/14/17 05:03 Anion Gap 21 mmol/L 10/14/17 05:03 BUN 24 mg/dL (9-20) H 10/14/17 05:03 Creatinine 0.8 mg/dL (0.8-1.5) 10/14/17 05:03 Estimated GFR > 60 ml/min 10/14/17 05:03 BUN/Creatinine Ratio 30 % 10/14/17 05:03 Glucose 355 mg/dL (75-100) H 10/14/17 05:03 POC Glucose 121 (70-105) H 10/07/17 11:55 Hemoglobin A1c 6.7 % (4-6) H 10/02/17 05:02 Calcium 9.3 mg/dL (8.4-10.2) 10/14/17 05:03 Phosphorus 3.60 mg/dL (2.5-4.5) 10/10/17 04:53 Magnesium 1.90 mg/dL (1.7-2.3) 10/10/17 04:53 Total Bilirubin 0.20 mg/dL (0.1-1.2) 10/10/17 04:53 AST 50 units/L (5-40) H 10/10/17 04:53 ALT 104 units/L (7-56) H 10/10/17 04:53 Alkaline Phosphatase 79 units/L (35-129) 10/10/17 04:53 Troponin T < 0.010 ng/mL (0.00-0.029) 10/01/17 00:58 C-Reactive Protein 0.00 mg/dL (0.00-1.30) 10/10/17 21:18 Total Protein 6.3 g/dL (6.3-8.2) 10/10/17 04:53 Albumin 3.3 g/dL (3.9-5) L 10/10/17 04:53 Albumin/Globulin Ratio 1.1 % 10/10/17 04:53 Triglycerides 128 mg/dL (2-149) 10/02/17 05:02 Cholesterol 130 mg/dL (50-199) 10/02/17 05:02 LDL Cholesterol Direct 78 mg/dL (50-130) 10/02/17 05:02 HDL Cholesterol 31 mg/dL (40-59) L 10/02/17 05:02 Cholesterol/HDL Ratio 4.19 % 10/02/17 05:02 Vitamin B12 641.8 pg/mL (211-911) 10/01/17 20:04 RBC Folic Acid 522 ng/mL (>280) 10/01/17 20:04 TSH 1.050 mlU/mL (0.270-4.200) 10/01/17 20:04 Urine Color Yellow (Yellow) 10/01/17 05:43 Urine Turbidity Clear (Clear) 10/01/17 05:43 Urine pH 5.0 (5.0-7.0) 10/01/17 05:43 Ur Specific [place] 1.024 (1.003-1.030) 10/01/17 05:43 Urine Protein <15 mg/dl mg/dL (Negative) 10/01/17 05:43 Urine Glucose (UA) Neg mg/dL (Negative) 10/01/17 05:43 Urine Ketones Neg mg/dL (Negative) 10/01/17 05:43 Urine Blood Neg (Negative) 10/01/17 05:43 Urine Nitrite Neg (Negative) 10/01/17 05:43 Urine Bilirubin Neg (Negative) 10/01/17 05:43 Urine Urobilinogen < 2.0 mg/dL (<2.0) 10/01/17 05:43 Ur Leukocyte Esterase Neg (Negative) 10/01/17 05:43 Urine WBC (Auto) 1.0 /HPF (0.0-6.0) 10/01/17 05:43 Urine RBC (Auto) 3.0 /HPF (0.0-6.0) 10/01/17 05:43 U Epithel Cells (Auto) 1.0 /HPF (0-13.0) 10/01/17 05:43 Urine Mucus Few /HPF 10/01/17 05:43 CSF Appearance Cloudy 10/10/17 Unknown CSF Color White 10/10/17 Unknown CSF WBC 42 /mm3 (1-10) 10/10/17 Unknown CSF RBC 1 /mm3 (0-0) 10/10/17 Unknown CSF Seg Neutrophils Not Reportable 10/10/17 Unknown CSF Lymphocytes % Not Reportable 10/10/17 Unknown CSF Reactive Lymphs Not Reportable 10/10/17 Unknown CSF Monocytes % Not Reportable 10/10/17 Unknown CSF Eosinophils % Not Reportable 10/10/17 Unknown CSF Basophils Not Reportable 10/10/17 Unknown CSF Pathologist Review C 10/10/17 Unknown CSF Glucose 148 mg/dL 10/10/17 Unknown CSF Total Protein 55 mg/dL 10/10/17 Unknown Urine Opiates Screen Presumptive negative 10/01/17 05:43 Urine Methadone Screen Presumptive negative 10/01/17 05:43 Ur Barbiturates Screen Presumptive negative 10/01/17 05:43 Ur Phencyclidine Scrn Presumptive negative 10/01/17 05:43 Ur Amphetamines Screen Presumptive negative 10/01/17 05:43 U Benzodiazepines Scrn Presumptive negative 10/01/17 05:43 Urine Cocaine Screen Presumptive negative 10/01/17 05:43 U Marijuana (THC) Screen Presumptive positive 10/01/17 05:43 Drugs of Abuse Note Disclamer 10/01/17 05:43
--- NOTE | 2017-10-14 13:59 | Vascular Lab Report ---
CAROTID DUPLEX STUDY: RIGHT PSVEDV CCA PROX:[id number] CCA DIST:[id number] ICA PROX:7020 ICA MID:7230 ICA DIST:6725 ECA: [id number] VERT: 30 11 LEFT PSVEDV CCA PROX:54242 CCA DIST:25354 ICA PROX:6114 ICA MID:7629 ICA DIST:7428 ECA: [id number] VERT: 44 17 REASON FOR EXAM: Stroke. COMMENTS ON THE RIGHT: Doppler frequency analysis is consistent with 16 to 49 percent diameter reduction of the internal carotid artery. Minimal amount of plaque is seen. The common carotid artery is patent. The external carotid artery is patent. The vertebral artery has antegrade flow. COMMENTS ON THE LEFT: Doppler frequency analysis is consistent with 16 to 49 percent diameter reduction of the internal carotid artery. Minimal amount of plaque is seen. The common carotid artery is patent. The external carotid artery is patent. The vertebral artery has antegrade flow. IMPRESSION: Less than 50% diameter reduction in the internal carotid arteries bilaterally.
[2017-10-14] MEDS: NORCO 5/325 PO PRN (20:31)
[2017-10-15 04:54] LABS: Hematocrit 50.5 % (35.5-45.6); Hemoglobin 16.5 gm/dl (11.8-15.2); Mean Corpuscular HGB Conc 33 % (32-34); Mean Corpuscular Hemoglobin 31 pg (28-32); Mean Corpuscular Volume 94 fl (84-94); Platelet Count 265 K/mm3 (140-440); Red Blood Count 5.36 M/mm3 (3.65-5.03); Red Cell Distribution Width 13.5 % (13.2-15.2)
[2017-10-15 05:06] LABS: BUN/Creatinine Ratio 39; Blood Urea Nitrogen 31 mg/dL (9-20); Calcium 9.4 mg/dL (8.4-10.2); Hemolysis Index 10
[2017-10-15 06:23] LABS: Band Neutrophils # (Manual) 0.9 K/mm3; Basophils % (Manual) 0 % (0.0-1.8); Eosinophils % (Manual) 0 % (0.0-4.3); Total Cells Counted 100
[2017-10-15 06:24] LABS: RBC Morphology Normal
--- NOTE | 2017-10-15 12:51 | Progress Note ---
Assessment and Plan Assessment and plan: --Acute CVA with right-sided hemiparesis, appears to be ischemic stroke right lateral ellen and medullary Continue aspirin and statin, neuro checks, Physical therapy occupational therapy, neurology following CSF has slight increase in protein but not suggestive of vasculitis--the WBC c/ w ischemic stroke Possible acute subacute/ rehabilitation when clinically stable Possible [facility] in transfer. --Bilateral lower extremity weakness MRI lumbar spine, thoracic spine findings reviewed, discussed with neurology Follow PT and OT evaluation and recommendations May need acute rehabilitation, --Type 2 diabetes mellitus; Accu-Chek sliding scale coverage and ADA diet. A1c 6.7, elevated blood sugars probably secondary to Solu-Medrol. We will begin to taper --Psychosis. 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 We will begin to taper --Ongoing tobacco use; Smoking cessation counseling and nicotine patch as needed --DVT prophylaxis; Lovenox Physical therapy occupational therapy, rehabilitation Closely monitor the patient and adjust management as needed Disposition; follow clinically, follow neurology recommendations History Interval history: 42-year-old male patient with significant past medical history of bronchial asthma was admitted through emergency room with right-sided weakness, Neuro workup is consistent with acute CVA with right- sided hemiparesis Patient also has bilateral lower extremity weakness, had extensive neuro workup , neurology following No new issues overnight. Hospitalist Physical - Constitutional Vitals: Temp Pulse Resp BP Pulse Ox 97.8 F 62 18 128/82 100 10/15/17 11:52 10/15/17 11:52 10/15/17 11:52 10/15/17 11:52 10/15/17 11:52 General appearance: Present: no acute distress, well-nourished - EENT Eyes: Present: PERRL, EOM intact ENT: hearing intact, clear oral mucosa, dentition normal - Neck Neck: Present: supple, normal ROM - Respiratory Respiratory effort: normal Respiratory: bilateral: CTA - Cardiovascular Rhythm: regular Heart Sounds: Present: S1 & S2. Absent: gallop, rub - Extremities Extremities: no ischemia, No edema, Full ROM - Abdominal General gastrointestinal: soft, non-tender, non-distended, normal bowel sounds - Integumentary Integumentary: Present: clear, warm, dry - Neurologic Neurologic: CNII-XII intact, moves all extremities, other (right upper and bilateral lower extremity weakness) Results - Labs CBC & Chem 7: 10/15/17 03:48 10/15/17 03:48 Labs: Laboratory Last Values WBC 22.4 K/mm3 (4.5-11.0) H 10/15/17 03:48 RBC 5.36 M/mm3 (3.65-5.03) H 10/15/17 03:48 Hgb 16.5 gm/dl (11.8-15.2) H 10/15/17 03:48 Hct 50.5 % (35.5-45.6) H 10/15/17 03:48 MCV 94 fl (84-94) 10/15/17 03:48 MCH 31 pg (28-32) 10/15/17 03:48 MCHC 33 % (32-34) 10/15/17 03:48 RDW 13.5 % (13.2-15.2) 10/15/17 03:48 Plt Count 265 K/mm3 (140-440) 10/15/17 03:48 Lymph % (Auto) 17.5 % (13.4-35.0) 10/04/17 04:33 [place] % (Auto) 10.0 % (0.0-7.3) H 10/04/17 04:33 Eos % (Auto) 0.8 % (0.0-4.3) 10/04/17 04:33 Baso % (Auto) 0.4 % (0.0-1.8) 10/04/17 04:33 Lymph # 1.4 K/mm3 (1.2-5.4) 10/04/17 04:33 [place] # 0.8 K/mm3 (0.0-0.8) 10/04/17 04:33 Eos # 0.1 K/mm3 (0.0-0.4) 10/04/17 04:33 Baso # 0.0 K/mm3 (0.0-0.1) 10/04/17 04:33 Add Manual Diff Complete 10/15/17 03:48 Total Counted 100 10/15/17 03:48 Seg Neutrophils % [place] 10/15/17 03:48 Seg Neuts % (Manual) 86.0 % (40.0-70.0) H 10/15/17 03:48 Band Neutrophils % 4.0 % 10/15/17 03:48 Lymphocytes % (Manual) 8.0 % (13.4-35.0) L 10/15/17 03:48 Reactive Lymphs % (Man) 0 % 10/15/17 03:48 Monocytes % (Manual) 2.0 % (0.0-7.3) 10/15/17 03:48 Eosinophils % (Manual) 0 % (0.0-4.3) 10/15/17 03:48 Basophils % (Manual) 0 % (0.0-1.8) 10/15/17 03:48 Metamyelocytes % 0 % 10/15/17 03:48 Myelocytes % 0 % 10/15/17 03:48 Promyelocytes % 0 % 10/15/17 03:48 Blast Cells % 0 % 10/15/17 03:48 Nucleated RBC % Not Reportable 10/15/17 03:48 Seg Neutrophils # 5.7 K/mm3 (1.8-7.7) 10/04/17 04:33 Seg Neutrophils # Man 19.3 K/mm3 (1.8-7.7) H 10/15/17 03:48 Band Neutrophils # 0.9 K/mm3 10/15/17 03:48 Lymphocytes # (Manual) 1.8 K/mm3 (1.2-5.4) 10/15/17 03:48 Abs React Lymphs (Man) 0.0 K/mm3 10/15/17 03:48 Monocytes # (Manual) 0.4 K/mm3 (0.0-0.8) 10/15/17 03:48 Eosinophils # (Manual) 0.0 K/mm3 (0.0-0.4) 10/15/17 03:48 Basophils # (Manual) 0.0 K/mm3 (0.0-0.1) 10/15/17 03:48 Metamyelocytes # 0.0 K/mm3 10/15/17 03:48 Myelocytes # 0.0 K/mm3 10/15/17 03:48 Promyelocytes # 0.0 K/mm3 10/15/17 03:48 Blast Cells # 0.0 K/mm3 10/15/17 03:48 WBC Morphology Not Reportable 10/15/17 03:48 Hypersegmented Neuts Not Reportable 10/15/17 03:48 Hyposegmented Neuts Not Reportable 10/15/17 03:48 Hypogranular Neuts Not Reportable 10/15/17 03:48 Smudge Cells Not Reportable 10/15/17 03:48 Toxic Granulation Not Reportable 10/15/17 03:48 Toxic Vacuolation Not Reportable 10/15/17 03:48 Dohle Bodies Not Reportable 10/15/17 03:48 Pelger-Huet Anomaly Not Reportable 10/15/17 03:48 Eh Rods Not Reportable 10/15/17 03:48 Platelet Estimate Appears normal 10/15/17 03:48 Clumped Platelets Not Reportable 10/15/17 03:48 Plt Clumps, EDTA Not Reportable 10/15/17 03:48 Large Platelets Not Reportable 10/15/17 03:48 Giant Platelets Not Reportable 10/15/17 03:48 Platelet Satelliting Not Reportable 10/15/17 03:48 Plt Morphology Comment Not Reportable 10/15/17 03:48 RBC Morphology Normal 10/15/17 03:48 Dimorphic RBCs Not Reportable 10/15/17 03:48 Polychromasia Not Reportable 10/15/17 03:48 Hypochromasia Not Reportable 10/15/17 03:48 Poikilocytosis Not Reportable 10/15/17 03:48 Anisocytosis Not Reportable 10/15/17 03:48 Microcytosis Not Reportable 10/15/17 03:48 Macrocytosis Not Reportable 10/15/17 03:48 Spherocytes Not Reportable 10/15/17 03:48 Pappenheimer Bodies Not Reportable 10/15/17 03:48 Sickle Cells Not Reportable 10/15/17 03:48 Target Cells Not Reportable 10/15/17 03:48 Tear Drop Cells Not Reportable 10/15/17 03:48 Ovalocytes Not Reportable 10/15/17 03:48 Helmet Cells Not Reportable 10/15/17 03:48 [place] Bodies Not Reportable 10/15/17 03:48 [place] Rings Not Reportable 10/15/17 03:48 Jalyn Cells Not Reportable 10/15/17 03:48 Bite Cells Not Reportable 10/15/17 03:48 Crenated Cell Not Reportable 10/15/17 03:48 Elliptocytes Not Reportable 10/15/17 03:48 Acanthocytes (Spur) Not Reportable 10/15/17 03:48 Rouleaux Not Reportable 10/15/17 03:48 Hemoglobin C Crystals Not Reportable 10/15/17 03:48 Schistocytes Not Reportable 10/15/17 03:48 Malaria parasites Not Reportable 10/15/17 03:48 [place] Bodies Not Reportable 10/15/17 03:48 Hem Pathologist Commnt No 10/15/17 03:48 PT 13.2 Sec. (12.2-14.9) 10/07/17 14:47 INR 0.95 (0.87-1.13) 10/07/17 14:47 APTT 26.0 Sec. (24.2-36.6) 10/01/17 00:58 Thrombin Time 17.0 Sec. (15.1-19.6) 10/01/17 00:58 Sodium 129 mmol/L (137-145) L 10/15/17 03:48 Potassium 4.8 mmol/L (3.6-5.0) 10/15/17 03:48 Chloride 89.0 mmol/L (98-107) L 10/15/17 03:48 Carbon Dioxide 27 mmol/L (22-30) 10/15/17 03:48 Anion Gap 18 mmol/L 10/15/17 03:48 BUN 31 mg/dL (9-20) H 10/15/17 03:48 Creatinine 0.8 mg/dL (0.8-1.5) 10/15/17 03:48 Estimated GFR > 60 ml/min 10/15/17 03:48 BUN/Creatinine Ratio 39 % 10/15/17 03:48 Glucose 421 mg/dL (75-100) H 10/15/17 03:48 POC Glucose 121 (70-105) H 10/07/17 11:55 Hemoglobin A1c 6.7 % (4-6) H 10/02/17 05:02 Calcium 9.4 mg/dL (8.4-10.2) 10/15/17 03:48 Phosphorus 3.60 mg/dL (2.5-4.5) 10/10/17 04:53 Magnesium 1.90 mg/dL (1.7-2.3) 10/10/17 04:53 Total Bilirubin 0.20 mg/dL (0.1-1.2) 10/10/17 04:53 AST 50 units/L (5-40) H 10/10/17 04:53 ALT 104 units/L (7-56) H 10/10/17 04:53 Alkaline Phosphatase 79 units/L (35-129) 10/10/17 04:53 Troponin T < 0.010 ng/mL (0.00-0.029) 10/01/17 00:58 C-Reactive Protein 0.00 mg/dL (0.00-1.30) 10/10/17 21:18 Total Protein 6.3 g/dL (6.3-8.2) 10/10/17 04:53 Albumin 3.3 g/dL (3.9-5) L 10/10/17 04:53 Albumin/Globulin Ratio 1.1 % 10/10/17 04:53 Triglycerides 128 mg/dL (2-149) 10/02/17 05:02 Cholesterol 130 mg/dL (50-199) 10/02/17 05:02 LDL Cholesterol Direct 78 mg/dL (50-130) 10/02/17 05:02 HDL Cholesterol 31 mg/dL (40-59) L 10/02/17 05:02 Cholesterol/HDL Ratio 4.19 % 10/02/17 05:02 Vitamin B12 641.8 pg/mL (211-911) 10/01/17 20:04 RBC Folic Acid 522 ng/mL (>280) 10/01/17 20:04 TSH 1.050 mlU/mL (0.270-4.200) 10/01/17 20:04 Urine Color Yellow (Yellow) 10/01/17 05:43 Urine Turbidity Clear (Clear) 10/01/17 05:43 Urine pH 5.0 (5.0-7.0) 10/01/17 05:43 Ur Specific [place] 1.024 (1.003-1.030) 10/01/17 05:43 Urine Protein <15 mg/dl mg/dL (Negative) 10/01/17 05:43 Urine Glucose (UA) Neg mg/dL (Negative) 10/01/17 05:43 Urine Ketones Neg mg/dL (Negative) 10/01/17 05:43 Urine Blood Neg (Negative) 10/01/17 05:43 Urine Nitrite Neg (Negative) 10/01/17 05:43 Urine Bilirubin Neg (Negative) 10/01/17 05:43 Urine Urobilinogen < 2.0 mg/dL (<2.0) 10/01/17 05:43 Ur Leukocyte Esterase Neg (Negative) 10/01/17 05:43 Urine WBC (Auto) 1.0 /HPF (0.0-6.0) 10/01/17 05:43 Urine RBC (Auto) 3.0 /HPF (0.0-6.0) 10/01/17 05:43 U Epithel Cells (Auto) 1.0 /HPF (0-13.0) 10/01/17 05:43 Urine Mucus Few /HPF 10/01/17 05:43 CSF Appearance Cloudy 10/10/17 Unknown CSF Color White 10/10/17 Unknown CSF WBC 42 /mm3 (1-10) 10/10/17 Unknown CSF RBC 1 /mm3 (0-0) 10/10/17 Unknown CSF Seg Neutrophils Not Reportable 10/10/17 Unknown CSF Lymphocytes % Not Reportable 10/10/17 Unknown CSF Reactive Lymphs Not Reportable 10/10/17 Unknown CSF Monocytes % Not Reportable 10/10/17 Unknown CSF Eosinophils % Not Reportable 10/10/17 Unknown CSF Basophils Not Reportable 10/10/17 Unknown CSF Pathologist Review C 10/10/17 Unknown CSF Glucose 148 mg/dL 10/10/17 Unknown CSF Total Protein 55 mg/dL 10/10/17 Unknown Urine Opiates Screen Presumptive negative 10/01/17 05:43 Urine Methadone Screen Presumptive negative 10/01/17 05:43 Ur Barbiturates Screen Presumptive negative 10/01/17 05:43 Ur Phencyclidine Scrn Presumptive negative 10/01/17 05:43 Ur Amphetamines Screen Presumptive negative 10/01/17 05:43 U Benzodiazepines Scrn Presumptive negative 10/01/17 05:43 Urine Cocaine Screen Presumptive negative 10/01/17 05:43 U Marijuana (THC) Screen Presumptive positive 10/01/17 05:43 Drugs of Abuse Note Disclamer 10/01/17 05:43
[2017-10-15] MEDS: TENORMIN PO SCH (14:44)
[2017-10-15] MEDS: LOVENOX SUB-Q SCH (14:44)
--- NOTE | 2017-10-15 15:43 | Progress Note ---
Subjective Date of service: 10/15/17 Principal diagnosis: acute ischemic stroke, hypocalcemia, diabetes mellitus type 2, Polycythemia Interval history: continues to show good progress in stroke recovery recommend inpatient rehab for stroke rehab Objective - Vital Sign Vital Signs - 12hr 10/15/17 10/15/17 10/15/17 04:54 07:30 11:52 Temperature 98.3 F 97.7 F 97.8 F Pulse Rate 70 64 62 Respiratory 18 18 18 Rate Blood Pressure 118/81 132/85 128/82 O2 Sat by Pulse 95 90 100 Oximetry - Laboratory Findings CBC and BMP: 10/15/17 03:48 10/15/17 03:48 Abnormal Lab Findings: Abnormal Labs 10/01/17 10/01/17 10/01/17 00:39 00:58 00:58 WBC RBC Hgb 15.6 H Hct 47.3 H MCV 95 H RDW 12.8 L Lymph % (Auto) 10.4 L [place] % (Auto) Lymph # 1.0 L Seg Neutrophils % 83.7 H Seg Neuts % (Manual) Lymphocytes % (Manual) Monocytes % (Manual) Seg Neutrophils # 7.8 H Seg Neutrophils # Man Lymphocytes # (Manual) Monocytes # (Manual) Sodium Chloride BUN Creatinine Glucose 145 H POC Glucose 142 H Hemoglobin A1c Calcium 10.3 H AST ALT Total Protein Albumin HDL Cholesterol 10/02/17 10/02/17 10/02/17 05:02 05:02 05:02 WBC RBC Hgb Hct MCV RDW Lymph % (Auto) [place] % (Auto) Lymph # Seg Neutrophils % 77.0 H Seg Neuts % (Manual) Lymphocytes % (Manual) Monocytes % (Manual) Seg Neutrophils # Seg Neutrophils # Man Lymphocytes # (Manual) Monocytes # (Manual) Sodium Chloride BUN Creatinine Glucose POC Glucose Hemoglobin A1c 6.7 H Calcium AST ALT Total Protein Albumin 3.7 L HDL Cholesterol 31 L 10/03/17 10/03/17 10/04/17 04:49 04:49 04:33 WBC RBC Hgb Hct MCV RDW 13.1 L 12.9 L Lymph % (Auto) [place] % (Auto) 9.4 H 10.0 H Lymph # Seg Neutrophils % 70.1 H 71.3 H Seg Neuts % (Manual) Lymphocytes % (Manual) Monocytes % (Manual) Seg Neutrophils # Seg Neutrophils # Man Lymphocytes # (Manual) Monocytes # (Manual) Sodium Chloride BUN Creatinine Glucose POC Glucose Hemoglobin A1c Calcium AST ALT Total Protein Albumin 3.4 L HDL Cholesterol 10/04/17 10/07/17 10/10/17 04:33 11:55 04:53 WBC 16.1 H RBC Hgb 15.3 H Hct MCV RDW 13.1 L Lymph % (Auto) [place] % (Auto) Lymph # Seg Neutrophils % Seg Neuts % (Manual) 83.0 H Lymphocytes % (Manual) 7.0 L Monocytes % (Manual) 9.0 H Seg Neutrophils # Seg Neutrophils # Man 13.4 H Lymphocytes # (Manual) 1.1 L Monocytes # (Manual) 1.4 H Sodium Chloride BUN Creatinine Glucose 134 H POC Glucose 121 H Hemoglobin A1c Calcium AST ALT Total Protein 6.0 L Albumin 3.2 L HDL Cholesterol 10/10/17 10/13/17 10/13/17 04:53 04:54 04:54 WBC 21.4 H RBC Hgb Hct MCV RDW 12.8 L Lymph % (Auto) [place] % (Auto) Lymph # Seg Neutrophils % Seg Neuts % (Manual) 90.0 H Lymphocytes % (Manual) 3.0 L Monocytes % (Manual) Seg Neutrophils # Seg Neutrophils # Man 19.3 H Lymphocytes # (Manual) 0.6 L Monocytes # (Manual) 0.9 H Sodium 135 L 132 L Chloride 96.6 L 93.8 L BUN 23 H Creatinine 0.7 L Glucose 266 H 301 H POC Glucose Hemoglobin A1c Calcium AST 50 H ALT 104 H Total Protein Albumin 3.3 L HDL Cholesterol 10/14/17 10/14/17 10/15/17 05:03 05:03 03:48 WBC 19.6 H 22.4 H RBC 5.36 H Hgb 15.7 H 16.5 H Hct 46.3 H 50.5 H MCV RDW 12.9 L Lymph % (Auto) [place] % (Auto) Lymph # Seg Neutrophils % Seg Neuts % (Manual) 94.0 H 86.0 H Lymphocytes % (Manual) 3.0 L 8.0 L Monocytes % (Manual) Seg Neutrophils # Seg Neutrophils # Man 18.4 H 19.3 H Lymphocytes # (Manual) 0.6 L Monocytes # (Manual) Sodium 131 L Chloride 90.0 L BUN 24 H Creatinine Glucose 355 H POC Glucose Hemoglobin A1c Calcium AST ALT Total Protein Albumin HDL Cholesterol 07/28/18 03:48 WBC RBC Hgb Hct MCV RDW Lymph % (Auto) [place] % (Auto) Lymph # Seg Neutrophils % Seg Neuts % (Manual) Lymphocytes % (Manual) Monocytes % (Manual) Seg Neutrophils # Seg Neutrophils # Man Lymphocytes # (Manual) Monocytes # (Manual) Sodium 129 L Chloride 89.0 L BUN 31 H Creatinine Glucose 421 H POC Glucose Hemoglobin A1c Calcium AST ALT Total Protein Albumin HDL Cholesterol
[2017-10-15] MEDS: NORCO 5/325 PO PRN (21:29)
[2017-10-16 08:07] LABS: Hematocrit 50.1 % (35.5-45.6); Hemoglobin 16.7 gm/dl (11.8-15.2); Mean Corpuscular HGB Conc 33 % (32-34); Mean Corpuscular Hemoglobin 31 pg (28-32); Mean Corpuscular Volume 94 fl (84-94); Platelet Count 263 K/mm3 (140-440); Red Blood Count 5.36 M/mm3 (3.65-5.03); Red Cell Distribution Width 13.1 % (13.2-15.2)
[2017-10-16 08:26] LABS: BUN/Creatinine Ratio 47; Blood Urea Nitrogen 33 mg/dL (9-20); Calcium 9.4 mg/dL (8.4-10.2); Hemolysis Index 190
[2017-10-16 08:59] LABS: Basophils % (Manual) 0 % (0.0-1.8); Eosinophils % (Manual) 0 % (0.0-4.3); Platelet Estimate Consistent w Auto; Total Cells Counted 100
[2017-10-16] MEDS: LOVENOX SUB-Q SCH (11:19)
[2017-10-16] MEDS: TENORMIN PO SCH (11:19)
--- NOTE | 2017-10-16 11:28 | Progress Note ---
Assessment and Plan Assessment and plan: --Acute CVA with right-sided hemiparesis, appears to be ischemic stroke right lateral ellen and medullary Continue aspirin and statin, neuro checks, Physical therapy occupational therapy, neurology following CSF has slight increase in protein but not suggestive of vasculitis--the WBC c/ w ischemic stroke Possible acute subacute/ rehabilitation when clinically stable Possible [facility] in transfer. --Bilateral lower extremity weakness MRI lumbar spine, thoracic spine findings reviewed, discussed with neurology Follow PT and OT evaluation and recommendations May need acute rehabilitation, --Type 2 diabetes mellitus; Accu-Chek sliding scale coverage and ADA diet. A1c 6.7, elevated blood sugars probably secondary to Solu-Medrol. Cont to taper --Psychosis. 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 We will begin to taper --Ongoing tobacco use; Smoking cessation counseling and nicotine patch as needed --DVT prophylaxis; Lovenox Physical therapy occupational therapy, rehabilitation Closely monitor the patient and adjust management as needed Disposition; follow clinically, follow neurology recommendations History Interval history: 42-year-old male patient with significant past medical history of bronchial asthma was admitted through emergency room with right-sided weakness, Neuro workup is consistent with acute CVA with right- sided hemiparesis Patient also has bilateral lower extremity weakness, had extensive neuro workup , neurology following No new issues overnight. Hospitalist Physical - Constitutional Vitals: Temp Pulse Resp BP Pulse Ox 97.5 F L 57 L 16 133/77 92 10/16/17 07:19 10/16/17 10:00 10/16/17 07:19 10/16/17 07:19 10/16/17 07:19 General appearance: Present: no acute distress, well-nourished - EENT Eyes: Present: PERRL, EOM intact ENT: hearing intact, clear oral mucosa, dentition normal - Neck Neck: Present: supple, normal ROM - Respiratory Respiratory effort: normal Respiratory: bilateral: CTA - Cardiovascular Rhythm: regular Heart Sounds: Present: S1 & S2. Absent: gallop, rub - Extremities Extremities: no ischemia, No edema, Full ROM - Abdominal General gastrointestinal: soft, non-tender, non-distended, normal bowel sounds - Integumentary Integumentary: Present: clear, warm, dry - Neurologic Neurologic: CNII-XII intact, moves all extremities Results - Labs CBC & Chem 7: 10/16/17 06:47 10/16/17 06:47 Labs: Laboratory Last Values WBC 20.5 K/mm3 (4.5-11.0) H 10/16/17 06:47 RBC 5.36 M/mm3 (3.65-5.03) H 10/16/17 06:47 Hgb 16.7 gm/dl (11.8-15.2) H 10/16/17 06:47 Hct 50.1 % (35.5-45.6) H 10/16/17 06:47 MCV 94 fl (84-94) 10/16/17 06:47 MCH 31 pg (28-32) 10/16/17 06:47 MCHC 33 % (32-34) 10/16/17 06:47 RDW 13.1 % (13.2-15.2) L 10/16/17 06:47 Plt Count 263 K/mm3 (140-440) 10/16/17 06:47 Lymph % (Auto) 17.5 % (13.4-35.0) 10/04/17 04:33 [place] % (Auto) 10.0 % (0.0-7.3) H 10/04/17 04:33 Eos % (Auto) 0.8 % (0.0-4.3) 10/04/17 04:33 Baso % (Auto) 0.4 % (0.0-1.8) 10/04/17 04:33 Lymph # 1.4 K/mm3 (1.2-5.4) 10/04/17 04:33 [place]ike # 0.8 K/mm3 (0.0-0.8) 10/04/17 04:33 Eos # 0.1 K/mm3 (0.0-0.4) 10/04/17 04:33 Baso # 0.0 K/mm3 (0.0-0.1) 10/04/17 04:33 Add Manual Diff Complete 10/16/17 06:47 Total Counted 100 10/16/17 06:47 Seg Neutrophils % Center Medical Director 10/16/17 06:47 Seg Neuts % (Manual) 87.0 % (40.0-70.0) H 10/16/17 06:47 Band Neutrophils % 0 % 10/16/17 06:47 Lymphocytes % (Manual) 5.0 % (13.4-35.0) L 10/16/17 06:47 Reactive Lymphs % (Man) 1.0 % 10/16/17 06:47 Monocytes % (Manual) 6.0 % (0.0-7.3) 10/16/17 06:47 Eosinophils % (Manual) 0 % (0.0-4.3) 10/16/17 06:47 Basophils % (Manual) 0 % (0.0-1.8) 10/16/17 06:47 Metamyelocytes % 1.0 % 10/16/17 06:47 Myelocytes % 0 % 10/16/17 06:47 Promyelocytes % 0 % 10/16/17 06:47 Blast Cells % 0 % 10/16/17 06:47 Nucleated RBC % Not Reportable 10/16/17 06:47 Seg Neutrophils # 5.7 K/mm3 (1.8-7.7) 10/04/17 04:33 Seg Neutrophils # Man 17.8 K/mm3 (1.8-7.7) H 10/16/17 06:47 Band Neutrophils # 0.0 K/mm3 10/16/17 06:47 Lymphocytes # (Manual) 1.0 K/mm3 (1.2-5.4) L 10/16/17 06:47 Abs React Lymphs (Man) 0.2 K/mm3 10/16/17 06:47 Monocytes # (Manual) 1.2 K/mm3 (0.0-0.8) H 10/16/17 06:47 Eosinophils # (Manual) 0.0 K/mm3 (0.0-0.4) 10/16/17 06:47 Basophils # (Manual) 0.0 K/mm3 (0.0-0.1) 10/16/17 06:47 Metamyelocytes # 0.2 K/mm3 10/16/17 06:47 Myelocytes # 0.0 K/mm3 10/16/17 06:47 Promyelocytes # 0.0 K/mm3 10/16/17 06:47 Blast Cells # 0.0 K/mm3 10/16/17 06:47 WBC Morphology Not Reportable 10/16/17 06:47 Hypersegmented Neuts Not Reportable 10/16/17 06:47 Hyposegmented Neuts Not Reportable 10/16/17 06:47 Hypogranular Neuts Not Reportable 10/16/17 06:47 Smudge Cells Not Reportable 10/16/17 06:47 Toxic Granulation Not Reportable 10/16/17 06:47 Toxic Vacuolation Not Reportable 10/16/17 06:47 Dohle Bodies Not Reportable 10/16/17 06:47 Pelger-Huet Anomaly Not Reportable 10/16/17 06:47 Eh Rods Not Reportable 10/16/17 06:47 Platelet Estimate Consistent w auto 10/16/17 06:47 Clumped Platelets Not Reportable 10/16/17 06:47 Plt Clumps, EDTA Not Reportable 10/16/17 06:47 Large Platelets Not Reportable 10/16/17 06:47 Giant Platelets Not Reportable 10/16/17 06:47 Platelet Satelliting Not Reportable 10/16/17 06:47 Plt Morphology Comment Not Reportable 10/16/17 06:47 RBC Morphology Not Reportable 10/16/17 06:47 Dimorphic RBCs Not Reportable 10/16/17 06:47 Polychromasia Not Reportable 10/16/17 06:47 Hypochromasia Not Reportable 10/16/17 06:47 Poikilocytosis Not Reportable 10/16/17 06:47 Anisocytosis Not Reportable 10/16/17 06:47 Microcytosis Not Reportable 10/16/17 06:47 Macrocytosis Not Reportable 10/16/17 06:47 Spherocytes Not Reportable 10/16/17 06:47 Pappenheimer Bodies Not Reportable 10/16/17 06:47 Sickle Cells Not Reportable 10/16/17 06:47 Target Cells Not Reportable 10/16/17 06:47 Tear Drop Cells Not Reportable 10/16/17 06:47 Ovalocytes Not Reportable 10/16/17 06:47 Helmet Cells Not Reportable 10/16/17 06:47 [place] Bodies Not Reportable 10/16/17 06:47 [place] Rings Not Reportable 10/16/17 06:47 J[place]yn Cells Not Reportable 10/16/17 06:47 Bite Cells Not Reportable 10/16/17 06:47 Crenated Cell Not Reportable 10/16/17 06:47 Elliptocytes Not Reportable 10/16/17 06:47 Acanthocytes (Spur) Not Reportable 10/16/17 06:47 Rouleaux Not Reportable 10/16/17 06:47 Hemoglobin C Crystals Not Reportable 10/16/17 06:47 Schistocytes Not Reportable 10/16/17 06:47 Malaria parasites Not Reportable 10/16/17 06:47 Jordan Bodies Not Reportable 10/16/17 06:47 Hem Pathologist Commnt No 10/16/17 06:47 PT 13.2 Sec. (12.2-14.9) 10/07/17 14:47 INR 0.95 (0.87-1.13) 10/07/17 14:47 APTT 26.0 Sec. (24.2-36.6) 10/01/17 00:58 Thrombin Time 17.0 Sec. (15.1-19.6) 10/01/17 00:58 Sodium 129 mmol/L (137-145) L 10/16/17 06:47 Potassium 5.8 mmol/L (3.6-5.0) H D 10/16/17 06:47 Chloride 84.6 mmol/L (98-107) L 10/16/17 06:47 Carbon Dioxide 26 mmol/L (22-30) 10/16/17 06:47 Anion Gap 24 mmol/L 10/16/17 06:47 BUN 33 mg/dL (9-20) H 10/16/17 06:47 Creatinine 0.7 mg/dL (0.8-1.5) L 10/16/17 06:47 Estimated GFR > 60 ml/min 10/16/17 06:47 BUN/Creatinine Ratio 47 % 10/16/17 06:47 Glucose 291 mg/dL (75-100) H 10/16/17 06:47 POC Glucose 121 (70-105) H 10/07/17 11:55 Hemoglobin A1c 6.7 % (4-6) H 10/02/17 05:02 Calcium 9.4 mg/dL (8.4-10.2) 10/16/17 06:47 Phosphorus 3.60 mg/dL (2.5-4.5) 10/10/17 04:53 Magnesium 1.90 mg/dL (1.7-2.3) 10/10/17 04:53 Total Bilirubin 0.20 mg/dL (0.1-1.2) 10/10/17 04:53 AST 50 units/L (5-40) H 10/10/17 04:53 ALT 104 units/L (7-56) H 10/10/17 04:53 Alkaline Phosphatase 79 units/L (35-129) 10/10/17 04:53 Troponin T < 0.010 ng/mL (0.00-0.029) 10/01/17 00:58 C-Reactive Protein 0.00 mg/dL (0.00-1.30) 10/10/17 21:18 Total Protein 6.3 g/dL (6.3-8.2) 10/10/17 04:53 Albumin 3.3 g/dL (3.9-5) L 10/10/17 04:53 Albumin/Globulin Ratio 1.1 % 10/10/17 04:53 Triglycerides 128 mg/dL (2-149) 10/02/17 05:02 Cholesterol 130 mg/dL (50-199) 10/02/17 05:02 LDL Cholesterol Direct 78 mg/dL (50-130) 10/02/17 05:02 HDL Cholesterol 31 mg/dL (40-59) L 10/02/17 05:02 Cholesterol/HDL Ratio 4.19 % 10/02/17 05:02 Vitamin B12 641.8 pg/mL (211-911) 10/01/17 20:04 RBC Folic Acid 522 ng/mL (>280) 10/01/17 20:04 TSH 1.050 mlU/mL (0.270-4.200) 10/01/17 20:04 Urine Color Yellow (Yellow) 10/01/17 05:43 Urine Turbidity Clear (Clear) 10/01/17 05:43 Urine pH 5.0 (5.0-7.0) 10/01/17 05:43 Ur Specific [place] 1.024 (1.003-1.030) 10/01/17 05:43 Urine Protein <15 mg/dl mg/dL (Negative) 10/01/17 05:43 Urine Glucose (UA) Neg mg/dL (Negative) 10/01/17 05:43 Urine Ketones Neg mg/dL (Negative) 10/01/17 05:43 Urine Blood Neg (Negative) 10/01/17 05:43 Urine Nitrite Neg (Negative) 10/01/17 05:43 Urine Bilirubin Neg (Negative) 10/01/17 05:43 Urine Urobilinogen < 2.0 mg/dL (<2.0) 10/01/17 05:43 Ur Leukocyte Esterase Neg (Negative) 10/01/17 05:43 Urine WBC (Auto) 1.0 /HPF (0.0-6.0) 10/01/17 05:43 Urine RBC (Auto) 3.0 /HPF (0.0-6.0) 10/01/17 05:43 U Epithel Cells (Auto) 1.0 /HPF (0-13.0) 10/01/17 05:43 Urine Mucus Few /HPF 10/01/17 05:43 CSF Appearance Cloudy 10/10/17 Unknown CSF Color White 10/10/17 Unknown CSF WBC 42 /mm3 (1-10) 10/10/17 Unknown CSF RBC 1 /mm3 (0-0) 10/10/17 Unknown CSF Seg Neutrophils Not Reportable 10/10/17 Unknown CSF Lymphocytes % Not Reportable 10/10/17 Unknown CSF Reactive Lymphs Not Reportable 10/10/17 Unknown CSF Monocytes % Not Reportable 10/10/17 Unknown CSF Eosinophils % Not Reportable 10/10/17 Unknown CSF Basophils Not Reportable 10/10/17 Unknown CSF Pathologist Review C 10/10/17 Unknown CSF Glucose 148 mg/dL 10/10/17 Unknown CSF Total Protein 55 mg/dL 10/10/17 Unknown Urine Opiates Screen Presumptive negative 10/01/17 05:43 Urine Methadone Screen Presumptive negative 10/01/17 05:43 Ur Barbiturates Screen Presumptive negative 10/01/17 05:43 Ur Phencyclidine Scrn Presumptive negative 10/01/17 05:43 Ur Amphetamines Screen Presumptive negative 10/01/17 05:43 U Benzodiazepines Scrn Presumptive negative 10/01/17 05:43 Urine Cocaine Screen Presumptive negative 10/01/17 05:43 U Marijuana (THC) Screen Presumptive positive 10/01/17 05:43 Drugs of Abuse Note Disclamer 10/01/17 05:43
[2017-10-17 07:17] LABS: BUN/Creatinine Ratio 41; Blood Urea Nitrogen 29 mg/dL (9-20); Calcium 8.9 mg/dL (8.4-10.2); Hemolysis Index 17
[2017-10-17] MEDS: NORCO 5/325 PO PRN ×2 (08:20→14:30)
--- NOTE | 2017-10-17 08:51 | Progress Note ---
Assessment and Plan Assessment and plan: --Acute CVA with right-sided hemiparesis, appears to be ischemic stroke right lateral ellen and medullary Continue aspirin and statin, neuro checks, Physical therapy occupational therapy, neurology following CSF has slight increase in protein but not suggestive of vasculitis--the WBC c/ w ischemic stroke Possible acute subacute/ rehabilitation when clinically stable Possible [facility] transfer. --Bilateral lower extremity weakness MRI lumbar spine, thoracic spine findings reviewed, discussed with neurology Follow PT and OT evaluation and recommendations May need acute rehabilitation, --Type 2 diabetes mellitus; Accu-Chek sliding scale coverage and ADA diet. A1c 6.7, elevated blood sugars probably secondary to Solu-Medrol. Cont to taper steroids and change to prednisone --Leukocytosis. 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 Cont. to taper. No evidence of infection --Ongoing tobacco use; Smoking cessation counseling and nicotine patch as needed --DVT prophylaxis; Lovenox Physical therapy occupational therapy, rehabilitation Closely monitor the patient and adjust management as needed Disposition; follow clinically, follow neurology recommendations History Interval history: 42-year-old male patient with significant past medical history of bronchial asthma was admitted through emergency room with right-sided weakness, Neuro workup is consistent with acute CVA with right- sided hemiparesis Patient also has bilateral lower extremity weakness, had extensive neuro workup , neurology following No new issues overnight. Hospitalist Physical - Constitutional Vitals: Temp Pulse Resp BP Pulse Ox 98.1 F 72 18 125/84 96 10/17/17 04:45 10/17/17 04:45 10/17/17 04:45 10/17/17 04:45 10/17/17 04:45 General appearance: Present: no acute distress, well-nourished - EENT Eyes: Present: PERRL, EOM intact ENT: hearing intact, clear oral mucosa, dentition normal - Neck Neck: Present: supple, normal ROM - Respiratory Respiratory effort: normal Respiratory: bilateral: CTA - Cardiovascular Rhythm: regular Heart Sounds: Present: S1 & S2. Absent: gallop, rub - Extremities Extremities: no ischemia, No edema, Full ROM - Abdominal General gastrointestinal: soft, non-tender, non-distended, normal bowel sounds - Integumentary Integumentary: Present: clear, warm, dry - Neurologic Neurologic: CNII-XII intact, moves all extremities Results - Labs CBC & Chem 7: 10/16/17 06:47 10/17/17 06:39 Labs: Laboratory Last Values WBC 20.5 K/mm3 (4.5-11.0) H 10/16/17 06:47 RBC 5.36 M/mm3 (3.65-5.03) H 10/16/17 06:47 Hgb 16.7 gm/dl (11.8-15.2) H 10/16/17 06:47 Hct 50.1 % (35.5-45.6) H 10/16/17 06:47 MCV 94 fl (84-94) 10/16/17 06:47 MCH 31 pg (28-32) 10/16/17 06:47 MCHC 33 % (32-34) 10/16/17 06:47 RDW 13.1 % (13.2-15.2) L 10/16/17 06:47 Plt Count 263 K/mm3 (140-440) 10/16/17 06:47 Lymph % (Auto) 17.5 % (13.4-35.0) 10/04/17 04:33 Ross % (Auto) 10.0 % (0.0-7.3) H 10/04/17 04:33 Eos % (Auto) 0.8 % (0.0-4.3) 10/04/17 04:33 Baso % (Auto) 0.4 % (0.0-1.8) 10/04/17 04:33 Lymph # 1.4 K/mm3 (1.2-5.4) 10/04/17 04:33 Ross # 0.8 K/mm3 (0.0-0.8) 10/04/17 04:33 Eos # 0.1 K/mm3 (0.0-0.4) 10/04/17 04:33 Baso # 0.0 K/mm3 (0.0-0.1) 10/04/17 04:33 Add Manual Diff Complete 10/16/17 06:47 Total Counted 100 10/16/17 06:47 Seg Neutrophils % [employer] 10/16/17 06:47 Seg Neuts % (Manual) 87.0 % (40.0-70.0) H 10/16/17 06:47 Band Neutrophils % 0 % 10/16/17 06:47 Lymphocytes % (Manual) 5.0 % (13.4-35.0) L 10/16/17 06:47 Reactive Lymphs % (Man) 1.0 % 10/16/17 06:47 Monocytes % (Manual) 6.0 % (0.0-7.3) 10/16/17 06:47 Eosinophils % (Manual) 0 % (0.0-4.3) 10/16/17 06:47 Basophils % (Manual) 0 % (0.0-1.8) 10/16/17 06:47 Metamyelocytes % 1.0 % 10/16/17 06:47 Myelocytes % 0 % 10/16/17 06:47 Promyelocytes % 0 % 10/16/17 06:47 Blast Cells % 0 % 10/16/17 06:47 Nucleated RBC % Not Reportable 10/16/17 06:47 Seg Neutrophils # 5.7 K/mm3 (1.8-7.7) 10/04/17 04:33 Seg Neutrophils # Man 17.8 K/mm3 (1.8-7.7) H 10/16/17 06:47 Band Neutrophils # 0.0 K/mm3 10/16/17 06:47 Lymphocytes # (Manual) 1.0 K/mm3 (1.2-5.4) L 10/16/17 06:47 Abs React Lymphs (Man) 0.2 K/mm3 10/16/17 06:47 Monocytes # (Manual) 1.2 K/mm3 (0.0-0.8) H 10/16/17 06:47 Eosinophils # (Manual) 0.0 K/mm3 (0.0-0.4) 10/16/17 06:47 Basophils # (Manual) 0.0 K/mm3 (0.0-0.1) 10/16/17 06:47 Metamyelocytes # 0.2 K/mm3 10/16/17 06:47 Myelocytes # 0.0 K/mm3 10/16/17 06:47 Promyelocytes # 0.0 K/mm3 10/16/17 06:47 Blast Cells # 0.0 K/mm3 10/16/17 06:47 WBC Morphology Not Reportable 10/16/17 06:47 Hypersegmented Neuts Not Reportable 10/16/17 06:47 Hyposegmented Neuts Not Reportable 10/16/17 06:47 Hypogranular Neuts Not Reportable 10/16/17 06:47 Smudge Cells Not Reportable 10/16/17 06:47 Toxic Granulation Not Reportable 10/16/17 06:47 Toxic Vacuolation Not Reportable 10/16/17 06:47 Dohle Bodies Not Reportable 10/16/17 06:47 Pelger-Huet Anomaly Not Reportable 10/16/17 06:47 Eh Rods Not Reportable 10/16/17 06:47 Platelet Estimate Consistent w auto 10/16/17 06:47 Clumped Platelets Not Reportable 10/16/17 06:47 Plt Clumps, EDTA Not Reportable 10/16/17 06:47 Large Platelets Not Reportable 10/16/17 06:47 Giant Platelets Not Reportable 10/16/17 06:47 Platelet Satelliting Not Reportable 10/16/17 06:47 Plt Morphology Comment Not Reportable 10/16/17 06:47 RBC Morphology Not Reportable 10/16/17 06:47 Dimorphic RBCs Not Reportable 10/16/17 06:47 Polychromasia Not Reportable 10/16/17 06:47 Hypochromasia Not Reportable 10/16/17 06:47 Poikilocytosis Not Reportable 10/16/17 06:47 Anisocytosis Not Reportable 10/16/17 06:47 Microcytosis Not Reportable 10/16/17 06:47 Macrocytosis Not Reportable 10/16/17 06:47 Spherocytes Not Reportable 10/16/17 06:47 Pappenheimer Bodies Not Reportable 10/16/17 06:47 Sickle Cells Not Reportable 10/16/17 06:47 Target Cells Not Reportable 10/16/17 06:47 Tear Drop Cells Not Reportable 10/16/17 06:47 Ovalocytes Not Reportable 10/16/17 06:47 Helmet Cells Not Reportable 10/16/17 06:47 [place] Bodies Not Reportable 10/16/17 06:47 [place] Rings Not Reportable 10/16/17 06:47 [place] Cells Not Reportable 10/16/17 06:47 Bite Cells Not Reportable 10/16/17 06:47 Crenated Cell Not Reportable 10/16/17 06:47 Elliptocytes Not Reportable 10/16/17 06:47 Acanthocytes (Spur) Not Reportable 10/16/17 06:47 Rouleaux Not Reportable 10/16/17 06:47 Hemoglobin C Crystals Not Reportable 10/16/17 06:47 Schistocytes Not Reportable 10/16/17 06:47 Malaria parasites Not Reportable 10/16/17 06:47 [place] Bodies Not Reportable 10/16/17 06:47 Hem Pathologist Commnt No 10/16/17 06:47 PT 13.2 Sec. (12.2-14.9) 10/07/17 14:47 INR 0.95 (0.87-1.13) 10/07/17 14:47 APTT 26.0 Sec. (24.2-36.6) 10/01/17 00:58 Thrombin Time 17.0 Sec. (15.1-19.6) 10/01/17 00:58 Sodium 128 mmol/L (137-145) L 10/17/17 06:39 Potassium 4.7 mmol/L (3.6-5.0) 10/17/17 06:39 Chloride 89.2 mmol/L (98-107) L 10/17/17 06:39 Carbon Dioxide 25 mmol/L (22-30) 10/17/17 06:39 Anion Gap 19 mmol/L 10/17/17 06:39 BUN 29 mg/dL (9-20) H 10/17/17 06:39 Creatinine 0.7 mg/dL (0.8-1.5) L 10/17/17 06:39 Estimated GFR > 60 ml/min 10/17/17 06:39 BUN/Creatinine Ratio 41 % 10/17/17 06:39 Glucose 384 mg/dL (75-100) H 10/17/17 06:39 POC Glucose 121 (70-105) H 10/07/17 11:55 Hemoglobin A1c 6.7 % (4-6) H 10/02/17 05:02 Calcium 8.9 mg/dL (8.4-10.2) 10/17/17 06:39 Phosphorus 3.60 mg/dL (2.5-4.5) 10/10/17 04:53 Magnesium 1.90 mg/dL (1.7-2.3) 10/10/17 04:53 Total Bilirubin 0.20 mg/dL (0.1-1.2) 10/10/17 04:53 AST 50 units/L (5-40) H 10/10/17 04:53 ALT 104 units/L (7-56) H 10/10/17 04:53 Alkaline Phosphatase 79 units/L (35-129) 10/10/17 04:53 Troponin T < 0.010 ng/mL (0.00-0.029) 10/01/17 00:58 C-Reactive Protein 0.00 mg/dL (0.00-1.30) 10/10/17 21:18 Total Protein 6.3 g/dL (6.3-8.2) 10/10/17 04:53 Albumin 3.3 g/dL (3.9-5) L 10/10/17 04:53 Albumin/Globulin Ratio 1.1 % 10/10/17 04:53 Triglycerides 128 mg/dL (2-149) 10/02/17 05:02 Cholesterol 130 mg/dL (50-199) 10/02/17 05:02 LDL Cholesterol Direct 78 mg/dL (50-130) 10/02/17 05:02 HDL Cholesterol 31 mg/dL (40-59) L 10/02/17 05:02 Cholesterol/HDL Ratio 4.19 % 10/02/17 05:02 Vitamin B12 641.8 pg/mL (211-911) 10/01/17 20:04 RBC Folic Acid 522 ng/mL (>280) 10/01/17 20:04 TSH 1.050 mlU/mL (0.270-4.200) 10/01/17 20:04 Urine Color Yellow (Yellow) 10/01/17 05:43 Urine Turbidity Clear (Clear) 10/01/17 05:43 Urine pH 5.0 (5.0-7.0) 10/01/17 05:43 Ur Specific [place] 1.024 (1.003-1.030) 10/01/17 05:43 Urine Protein <15 mg/dl mg/dL (Negative) 10/01/17 05:43 Urine Glucose (UA) Neg mg/dL (Negative) 10/01/17 05:43 Urine Ketones Neg mg/dL (Negative) 10/01/17 05:43 Urine Blood Neg (Negative) 10/01/17 05:43 Urine Nitrite Neg (Negative) 10/01/17 05:43 Urine Bilirubin Neg (Negative) 10/01/17 05:43 Urine Urobilinogen < 2.0 mg/dL (<2.0) 10/01/17 05:43 Ur Leukocyte Esterase Neg (Negative) 10/01/17 05:43 Urine WBC (Auto) 1.0 /HPF (0.0-6.0) 10/01/17 05:43 Urine RBC (Auto) 3.0 /HPF (0.0-6.0) 10/01/17 05:43 U Epithel Cells (Auto) 1.0 /HPF (0-13.0) 10/01/17 05:43 Urine Mucus Few /HPF 10/01/17 05:43 CSF Appearance Cloudy 10/10/17 Unknown CSF Color White 10/10/17 Unknown CSF WBC 42 /mm3 (1-10) 10/10/17 Unknown CSF RBC 1 /mm3 (0-0) 10/10/17 Unknown CSF Seg Neutrophils Not Reportable 10/10/17 Unknown CSF Lymphocytes % Not Reportable 10/10/17 Unknown CSF Reactive Lymphs Not Reportable 10/10/17 Unknown CSF Monocytes % Not Reportable 10/10/17 Unknown CSF Eosinophils % Not Reportable 10/10/17 Unknown CSF Basophils Not Reportable 10/10/17 Unknown CSF Pathologist Review C 10/10/17 Unknown CSF Glucose 148 mg/dL 10/10/17 Unknown CSF Total Protein 55 mg/dL 10/10/17 Unknown Urine Opiates Screen Presumptive negative 10/01/17 05:43 Urine Methadone Screen Presumptive negative 10/01/17 05:43 Ur Barbiturates Screen Presumptive negative 10/01/17 05:43 Ur Phencyclidine Scrn Presumptive negative 10/01/17 05:43 Ur Amphetamines Screen Presumptive negative 10/01/17 05:43 U Benzodiazepines Scrn Presumptive negative 10/01/17 05:43 Urine Cocaine Screen Presumptive negative 10/01/17 05:43 U Marijuana (THC) Screen Presumptive positive 10/01/17 05:43 Drugs of Abuse Note Disclamer 10/01/17 05:43
[2017-10-17] MEDS: TENORMIN PO SCH (09:03)
[2017-10-17] MEDS: LOVENOX SUB-Q SCH (09:03)
[2017-10-17] MEDS ORDERED: DELTASONE PO NR (10:00)
--- NOTE | 2017-10-18 10:22 | Progress Note ---
Assessment and Plan Patient is a 42-year-old male that presents to emergency room with complaints of right-sided weakness and right-sided numbness 19 hours. Last known well time at 5 AM on 09/30/17. Patient states that he was nauseous and vomiting for approximately an hour before symptoms started. Patient left work and went home and tried to sleep it off. When patient woke up this evening patient is still unable to move his right side normally. Patient denies any slurred speech. No facial droop. No headache. Patient also denies chest pain and shortness of breath. Patient denies fever and chills. c/o abd pain. On presentation to the emergency department, CT scan of the brain was normal. CT abdomen and pelvis because of nausea vomiting showed negative evidence of intra-abdominal lesions. Had evidence of carotid disease. Admission was therefore requested. MRI of the brain showed right lacumar infarction. MRI report 10/01/17: Small acute linear lacunar infarction posterior lateral aspect right side of the ellen. ---Acute CVA with right-sided hemiparesis, appears to be ischemic stroke right lateral ellen and medullary Continue aspirin and statin, neuro checks, Physical therapy occupational therapy, neurology following CSF has slight increase in protein but not suggestive of vasculitis--the CT c/w ischemic stroke Possible acute subacute/ rehabilitation when clinically stable Possible [facility] transfer. --Bilateral lower extremity weakness MRI lumbar spine, thoracic spine findings reviewed, discussed with neurology Follow PT and OT evaluation and recommendations May need acute rehabilitation, --Type 2 diabetes mellitus; Accu-Chek sliding scale coverage and ADA diet. A1c 6.7, --Hyponatremia iv NS --Ongoing tobacco use; Smoking cessation counseling and nicotine patch as needed --DVT prophylaxis; Lovenox Physical therapy occupational therapy, rehabilitation Closely monitor the patient and adjust management as needed Disposition; follow clinically, follow neurology recommendations -Disposition: Discharge to acute in-pt rehab Subjective Date of service: 10/18/17 Principal diagnosis: acute ischemic stroke, hypocalcemia, diabetes mellitus type 2, Polycythemia Interval history: Patient lying quietly in bed. In no acute distress. He has more weakness on the right side . However complains of some weakness affecting the left side is improving. Denies any headache. Objective - Exam Narrative Exam: Constitutional: Well-nourished well-developed. In no distress Head: Normocephalic atraumatic Eyes: Pupils are equal round and reactive to light Nose: No enlarged turbinates, no septal deviation. Mouth: Moist mucous membranes. Neck: Supple no thyromegaly. No bruit. No JVD Heart: Regular rate and rhythm, S1-S2 abnormal. No rubs murmurs or gallop Lungs: Clear to auscultation bilaterally no rales or rhonchi Abdomen: Soft, nontender. Bowel sound are present. Extremities: No edema no cyanosis and no clubbing. Neuro: Right-sided weakness. strentght 1/5 and weakness on the left and lower extremities strength 4-3/5 upper arm. Alert and Oriented x3. Second to 12th cranial nerves were grossly intact. Skin: No rashes no hyperemic spots Psychiatry: Euthymic.Calm. - Constitutional Vitals: Vital Signs - 12hr 10/18/17 10/18/17 10/18/17 00:38 02:35 05:36 Temperature 98.1 F 97.8 F Pulse Rate 68 74 69 Respiratory 18 18 Rate Blood Pressure 119/74 128/93 Blood Pressure [Left] O2 Sat by Pulse 94 96 Oximetry 10/18/17 09:04 Temperature 97.5 F L Pulse Rate 69 Respiratory 18 Rate Blood Pressure Blood Pressure 118/87 [Left] O2 Sat by Pulse 96 Oximetry - Labs CBC & Chem 7: 10/16/17 06:47 10/17/17 06:39
[2017-10-18] MEDS: TENORMIN PO SCH (10:39)
[2017-10-18] MEDS: DELTASONE PO SCH (10:40)
[2017-10-18] MEDS: LOVENOX SUB-Q SCH (10:41)
--- NOTE | 2017-10-18 15:31 | Progress Note ---
Assessment and Plan Assessment and plan: --Acute CVA with right-sided hemiparesis, appears to be ischemic stroke right lateral ellen and medullary Continue aspirin and statin, neuro checks, Physical therapy occupational therapy, neurology following CSF has slight increase in protein but not suggestive of vasculitis--the WBC c/ w ischemic stroke Possible acute subacute/ rehabilitation when clinically stable --Bilateral lower extremity weakness MRI lumbar spine, thoracic spine findings reviewed, Follow PT and OT evaluation and recommendations May need acute rehabilitation, --Type 2 diabetes mellitus; Accu-Chek sliding scale coverage and ADA diet. A1c 6.7, elevated blood sugars probably secondary to Solu-Medrol. Cont to taper steroids and change to prednisone --Leukocytosis. 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 Cont. to taper. No evidence of infection Hyponatremia. Start NS @100 --Ongoing tobacco use; Smoking cessation counseling and nicotine patch as needed --DVT prophylaxis; Lovenox Physical therapy occupational therapy, rehabilitation Closely monitor the patient and adjust management as needed Full code status History Interval history: Right sided weakness, Bilateral lower ext weakness Hospitalist Physical - Physical exam Narrative exam: Gen:Not in acute distress, lying in bed HEENT:Normocephalic atraumatic Neck: Supple, no JVD Lungs:clear to auscultation bilaterally, no rhonchi, no wheeze Heart:S1 and S2 reg, no murmurs, rubs or gallop Abd: Soft, non tender, non distended, normal bowel sounds Ext: No edema, clubbing or cyanosis Neuro:Awake,alert,oriented x 3,right sided weakness, bilat lower ext weakness - Constitutional Vitals: Temp Pulse Resp BP Pulse Ox 97.5 F L 69 18 118/87 96 10/18/17 09:04 10/18/17 10:39 10/18/17 09:04 10/18/17 09:04 10/18/17 09:04 General appearance: Present: no acute distress, well-nourished Results - Labs CBC & Chem 7: 10/16/17 06:47 10/17/17 06:39 Labs: Laboratory Last Values WBC 20.5 K/mm3 (4.5-11.0) H 10/16/17 06:47 RBC 5.36 M/mm3 (3.65-5.03) H 10/16/17 06:47 Hgb 16.7 gm/dl (11.8-15.2) H 10/16/17 06:47 Hct 50.1 % (35.5-45.6) H 10/16/17 06:47 MCV 94 fl (84-94) 10/16/17 06:47 MCH 31 pg (28-32) 10/16/17 06:47 MCHC 33 % (32-34) 10/16/17 06:47 RDW 13.1 % (13.2-15.2) L 10/16/17 06:47 Plt Count 263 K/mm3 (140-440) 10/16/17 06:47 Lymph % (Auto) 17.5 % (13.4-35.0) 10/04/17 04:33 [place] % (Auto) 10.0 % (0.0-7.3) H 10/04/17 04:33 Eos % (Auto) 0.8 % (0.0-4.3) 10/04/17 04:33 Baso % (Auto) 0.4 % (0.0-1.8) 10/04/17 04:33 Lymph # 1.4 K/mm3 (1.2-5.4) 10/04/17 04:33 [place] # 0.8 K/mm3 (0.0-0.8) 10/04/17 04:33 Eos # 0.1 K/mm3 (0.0-0.4) 10/04/17 04:33 Baso # 0.0 K/mm3 (0.0-0.1) 10/04/17 04:33 Add Manual Diff Complete 10/16/17 06:47 Total Counted 100 10/16/17 06:47 Seg Neutrophils % Cyber Systems Engineer 10/16/17 06:47 Seg Neuts % (Manual) 87.0 % (40.0-70.0) H 10/16/17 06:47 Band Neutrophils % 0 % 10/16/17 06:47 Lymphocytes % (Manual) 5.0 % (13.4-35.0) L 10/16/17 06:47 Reactive Lymphs % (Man) 1.0 % 10/16/17 06:47 Monocytes % (Manual) 6.0 % (0.0-7.3) 10/16/17 06:47 Eosinophils % (Manual) 0 % (0.0-4.3) 10/16/17 06:47 Basophils % (Manual) 0 % (0.0-1.8) 10/16/17 06:47 Metamyelocytes % 1.0 % 10/16/17 06:47 Myelocytes % 0 % 10/16/17 06:47 Promyelocytes % 0 % 10/16/17 06:47 Blast Cells % 0 % 10/16/17 06:47 Nucleated RBC % Not Reportable 10/16/17 06:47 Seg Neutrophils # 5.7 K/mm3 (1.8-7.7) 10/04/17 04:33 Seg Neutrophils # Man 17.8 K/mm3 (1.8-7.7) H 10/16/17 06:47 Band Neutrophils # 0.0 K/mm3 10/16/17 06:47 Lymphocytes # (Manual) 1.0 K/mm3 (1.2-5.4) L 10/16/17 06:47 Abs React Lymphs (Man) 0.2 K/mm3 10/16/17 06:47 Monocytes # (Manual) 1.2 K/mm3 (0.0-0.8) H 10/16/17 06:47 Eosinophils # (Manual) 0.0 K/mm3 (0.0-0.4) 10/16/17 06:47 Basophils # (Manual) 0.0 K/mm3 (0.0-0.1) 10/16/17 06:47 Metamyelocytes # 0.2 K/mm3 10/16/17 06:47 Myelocytes # 0.0 K/mm3 10/16/17 06:47 Promyelocytes # 0.0 K/mm3 10/16/17 06:47 Blast Cells # 0.0 K/mm3 10/16/17 06:47 WBC Morphology Not Reportable 10/16/17 06:47 Hypersegmented Neuts Not Reportable 10/16/17 06:47 Hyposegmented Neuts Not Reportable 10/16/17 06:47 Hypogranular Neuts Not Reportable 10/16/17 06:47 Smudge Cells Not Reportable 10/16/17 06:47 Toxic Granulation Not Reportable 10/16/17 06:47 Toxic Vacuolation Not Reportable 10/16/17 06:47 Dohle Bodies Not Reportable 10/16/17 06:47 Pelger-Huet Anomaly Not Reportable 10/16/17 06:47 Eh Rods Not Reportable 10/16/17 06:47 Platelet Estimate Consistent w auto 10/16/17 06:47 Clumped Platelets Not Reportable 10/16/17 06:47 Plt Clumps, EDTA Not Reportable 10/16/17 06:47 Large Platelets Not Reportable 10/16/17 06:47 Giant Platelets Not Reportable 10/16/17 06:47 Platelet Satelliting Not Reportable 10/16/17 06:47 Plt Morphology Comment Not Reportable 10/16/17 06:47 RBC Morphology Not Reportable 10/16/17 06:47 Dimorphic RBCs Not Reportable 10/16/17 06:47 Polychromasia Not Reportable 10/16/17 06:47 Hypochromasia Not Reportable 10/16/17 06:47 Poikilocytosis Not Reportable 10/16/17 06:47 Anisocytosis Not Reportable 10/16/17 06:47 Microcytosis Not Reportable 10/16/17 06:47 Macrocytosis Not Reportable 10/16/17 06:47 Spherocytes Not Reportable 10/16/17 06:47 Pappenheimer Bodies Not Reportable 10/16/17 06:47 Sickle Cells Not Reportable 10/16/17 06:47 Target Cells Not Reportable 10/16/17 06:47 Tear Drop Cells Not Reportable 10/16/17 06:47 Ovalocytes Not Reportable 10/16/17 06:47 Helmet Cells Not Reportable 10/16/17 06:47 [place] Bodies Not Reportable 10/16/17 06:47 [place] Rings Not Reportable 10/16/17 06:47 [place] Cells Not Reportable 10/16/17 06:47 Bite Cells Not Reportable 10/16/17 06:47 Crenated Cell Not Reportable 10/16/17 06:47 Elliptocytes Not Reportable 10/16/17 06:47 Acanthocytes (Spur) Not Reportable 10/16/17 06:47 Rouleaux Not Reportable 10/16/17 06:47 Hemoglobin C Crystals Not Reportable 10/16/17 06:47 Schistocytes Not Reportable 10/16/17 06:47 Malaria parasites Not Reportable 10/16/17 06:47 [place] Bodies Not Reportable 10/16/17 06:47 Hem Pathologist Commnt No 10/16/17 06:47 PT 13.2 Sec. (12.2-14.9) 10/07/17 14:47 INR 0.95 (0.87-1.13) 10/07/17 14:47 APTT 26.0 Sec. (24.2-36.6) 10/01/17 00:58 Thrombin Time 17.0 Sec. (15.1-19.6) 10/01/17 00:58 Sodium 128 mmol/L (137-145) L 10/17/17 06:39 Potassium 4.7 mmol/L (3.6-5.0) 10/17/17 06:39 Chloride 89.2 mmol/L (98-107) L 10/17/17 06:39 Carbon Dioxide 25 mmol/L (22-30) 10/17/17 06:39 Anion Gap 19 mmol/L 10/17/17 06:39 BUN 29 mg/dL (9-20) H 10/17/17 06:39 Creatinine 0.7 mg/dL (0.8-1.5) L 10/17/17 06:39 Estimated GFR > 60 ml/min 10/17/17 06:39 BUN/Creatinine Ratio 41 % 10/17/17 06:39 Glucose 384 mg/dL (75-100) H 10/17/17 06:39 POC Glucose 121 (70-105) H 10/07/17 11:55 Hemoglobin A1c 6.7 % (4-6) H 10/02/17 05:02 Calcium 8.9 mg/dL (8.4-10.2) 10/17/17 06:39 Phosphorus 3.60 mg/dL (2.5-4.5) 10/10/17 04:53 Magnesium 1.90 mg/dL (1.7-2.3) 10/10/17 04:53 Total Bilirubin 0.20 mg/dL (0.1-1.2) 10/10/17 04:53 AST 50 units/L (5-40) H 10/10/17 04:53 ALT 104 units/L (7-56) H 10/10/17 04:53 Alkaline Phosphatase 79 units/L (35-129) 10/10/17 04:53 Troponin T < 0.010 ng/mL (0.00-0.029) 10/01/17 00:58 C-Reactive Protein 0.00 mg/dL (0.00-1.30) 10/10/17 21:18 Total Protein 6.3 g/dL (6.3-8.2) 10/10/17 04:53 Albumin 3.3 g/dL (3.9-5) L 10/10/17 04:53 Albumin/Globulin Ratio 1.1 % 10/10/17 04:53 Triglycerides 128 mg/dL (2-149) 10/02/17 05:02 Cholesterol 130 mg/dL (50-199) 10/02/17 05:02 LDL Cholesterol Direct 78 mg/dL (50-130) 10/02/17 05:02 HDL Cholesterol 31 mg/dL (40-59) L 10/02/17 05:02 Cholesterol/HDL Ratio 4.19 % 10/02/17 05:02 Vitamin B12 641.8 pg/mL (211-911) 10/01/17 20:04 RBC Folic Acid 522 ng/mL (>280) 10/01/17 20:04 TSH 1.050 mlU/mL (0.270-4.200) 10/01/17 20:04 Urine Color Yellow (Yellow) 10/01/17 05:43 Urine Turbidity Clear (Clear) 10/01/17 05:43 Urine pH 5.0 (5.0-7.0) 10/01/17 05:43 Ur Specific [place] 1.024 (1.003-1.030) 10/01/17 05:43 Urine Protein <15 mg/dl mg/dL (Negative) 10/01/17 05:43 Urine Glucose (UA) Neg mg/dL (Negative) 10/01/17 05:43 Urine Ketones Neg mg/dL (Negative) 10/01/17 05:43 Urine Blood Neg (Negative) 10/01/17 05:43 Urine Nitrite Neg (Negative) 10/01/17 05:43 Urine Bilirubin Neg (Negative) 10/01/17 05:43 Urine Urobilinogen < 2.0 mg/dL (<2.0) 10/01/17 05:43 Ur Leukocyte Esterase Neg (Negative) 10/01/17 05:43 Urine WBC (Auto) 1.0 /HPF (0.0-6.0) 10/01/17 05:43 Urine RBC (Auto) 3.0 /HPF (0.0-6.0) 10/01/17 05:43 U Epithel Cells (Auto) 1.0 /HPF (0-13.0) 10/01/17 05:43 Urine Mucus Few /HPF 10/01/17 05:43 CSF Appearance Cloudy 10/10/17 Unknown CSF Color White 10/10/17 Unknown CSF WBC 42 /mm3 (1-10) 10/10/17 Unknown CSF RBC 1 /mm3 (0-0) 10/10/17 Unknown CSF Seg Neutrophils Not Reportable 10/10/17 Unknown CSF Lymphocytes % Not Reportable 10/10/17 Unknown CSF Reactive Lymphs Not Reportable 10/10/17 Unknown CSF Monocytes % Not Reportable 10/10/17 Unknown CSF Eosinophils % Not Reportable 10/10/17 Unknown CSF Basophils Not Reportable 10/10/17 Unknown CSF Pathologist Review C 10/10/17 Unknown CSF Glucose 148 mg/dL 10/10/17 Unknown CSF Total Protein 55 mg/dL 10/10/17 Unknown Urine Opiates Screen Presumptive negative 10/01/17 05:43 Urine Methadone Screen Presumptive negative 10/01/17 05:43 Ur Barbiturates Screen Presumptive negative 10/01/17 05:43 Ur Phencyclidine Scrn Presumptive negative 10/01/17 05:43 Ur Amphetamines Screen Presumptive negative 10/01/17 05:43 U Benzodiazepines Scrn Presumptive negative 10/01/17 05:43 Urine Cocaine Screen Presumptive negative 10/01/17 05:43 U Marijuana (THC) Screen Presumptive positive 10/01/17 05:43 Drugs of Abuse Note Disclamer 10/01/17 05:43
--- NOTE | 2017-10-19 09:04 | Progress Note ---
Assessment and Plan Assessment and plan: --Acute CVA with right-sided hemiparesis, appears to be ischemic stroke right lateral ellen and medullary Continue aspirin and statin, neuro checks, Physical therapy occupational therapy, neurology following CSF has slight increase in protein but not suggestive of vasculitis--the WBC c/ w ischemic stroke Possible acute subacute/ rehabilitation when clinically stable --Bilateral lower extremity weakness MRI lumbar spine, thoracic spine findings reviewed, Follow PT and OT evaluation and recommendations May need acute rehabilitation, --Type 2 diabetes mellitus; Accu-Chek sliding scale coverage and ADA diet. A1c 6.7, elevated blood sugars probably secondary to Solu-Medrol. Cont to taper steroids and change to prednisone --Leukocytosis. 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 Cont. to taper. No evidence of infection Hyponatremia. Start NS @100 --Ongoing tobacco use; Smoking cessation counseling and nicotine patch as needed --DVT prophylaxis; Lovenox Physical therapy occupational therapy, rehabilitation Closely monitor the patient and adjust management as needed Full code status Medically stable for discharge. Awaiting placement. History Interval history: Right sided weakness, Bilateral lower ext weakness, No new complaints Hospitalist Physical - Physical exam Narrative exam: Gen:Not in acute distress, lying in bed HEENT:Normocephalic atraumatic Neck: Supple, no JVD Lungs:clear to auscultation bilaterally, no rhonchi, no wheeze Heart:S1 and S2 reg, no murmurs, rubs or gallop Abd: Soft, non tender, non distended, normal bowel sounds Ext: No edema, clubbing or cyanosis Neuro:Awake,alert,oriented x 3,right sided weakness, bilat lower ext weakness - Constitutional Vitals: Temp Pulse Resp BP Pulse Ox 98.1 F 75 18 125/87 95 10/19/17 08:28 10/19/17 08:28 10/19/17 08:28 10/19/17 08:28 10/19/17 08:28 General appearance: Present: no acute distress, well-nourished Results - Labs CBC & Chem 7: 10/16/17 06:47 10/17/17 06:39 Labs: Laboratory Last Values WBC 20.5 K/mm3 (4.5-11.0) H 10/16/17 06:47 RBC 5.36 M/mm3 (3.65-5.03) H 10/16/17 06:47 Hgb 16.7 gm/dl (11.8-15.2) H 10/16/17 06:47 Hct 50.1 % (35.5-45.6) H 10/16/17 06:47 MCV 94 fl (84-94) 10/16/17 06:47 MCH 31 pg (28-32) 10/16/17 06:47 MCHC 33 % (32-34) 10/16/17 06:47 RDW 13.1 % (13.2-15.2) L 10/16/17 06:47 Plt Count 263 K/mm3 (140-440) 10/16/17 06:47 Lymph % (Auto) 17.5 % (13.4-35.0) 10/04/17 04:33 [place] % (Auto) 10.0 % (0.0-7.3) H 10/04/17 04:33 Eos % (Auto) 0.8 % (0.0-4.3) 10/04/17 04:33 Baso % (Auto) 0.4 % (0.0-1.8) 10/04/17 04:33 Lymph # 1.4 K/mm3 (1.2-5.4) 10/04/17 04:33 [place] # 0.8 K/mm3 (0.0-0.8) 10/04/17 04:33 Eos # 0.1 K/mm3 (0.0-0.4) 10/04/17 04:33 Baso # 0.0 K/mm3 (0.0-0.1) 10/04/17 04:33 Add Manual Diff Complete 10/16/17 06:47 Total Counted 100 10/16/17 06:47 Seg Neutrophils % Assembly Line Worker 10/16/17 06:47 Seg Neuts % (Manual) 87.0 % (40.0-70.0) H 10/16/17 06:47 Band Neutrophils % 0 % 10/16/17 06:47 Lymphocytes % (Manual) 5.0 % (13.4-35.0) L 10/16/17 06:47 Reactive Lymphs % (Man) 1.0 % 10/16/17 06:47 Monocytes % (Manual) 6.0 % (0.0-7.3) 10/16/17 06:47 Eosinophils % (Manual) 0 % (0.0-4.3) 10/16/17 06:47 Basophils % (Manual) 0 % (0.0-1.8) 10/16/17 06:47 Metamyelocytes % 1.0 % 10/16/17 06:47 Myelocytes % 0 % 10/16/17 06:47 Promyelocytes % 0 % 10/16/17 06:47 Blast Cells % 0 % 10/16/17 06:47 Nucleated RBC % Not Reportable 10/16/17 06:47 Seg Neutrophils # 5.7 K/mm3 (1.8-7.7) 10/04/17 04:33 Seg Neutrophils # Man 17.8 K/mm3 (1.8-7.7) H 10/16/17 06:47 Band Neutrophils # 0.0 K/mm3 10/16/17 06:47 Lymphocytes # (Manual) 1.0 K/mm3 (1.2-5.4) L 10/16/17 06:47 Abs React Lymphs (Man) 0.2 K/mm3 10/16/17 06:47 Monocytes # (Manual) 1.2 K/mm3 (0.0-0.8) H 10/16/17 06:47 Eosinophils # (Manual) 0.0 K/mm3 (0.0-0.4) 10/16/17 06:47 Basophils # (Manual) 0.0 K/mm3 (0.0-0.1) 10/16/17 06:47 Metamyelocytes # 0.2 K/mm3 10/16/17 06:47 Myelocytes # 0.0 K/mm3 10/16/17 06:47 Promyelocytes # 0.0 K/mm3 10/16/17 06:47 Blast Cells # 0.0 K/mm3 10/16/17 06:47 WBC Morphology Not Reportable 10/16/17 06:47 Hypersegmented Neuts Not Reportable 10/16/17 06:47 Hyposegmented Neuts Not Reportable 10/16/17 06:47 Hypogranular Neuts Not Reportable 10/16/17 06:47 Smudge Cells Not Reportable 10/16/17 06:47 Toxic Granulation Not Reportable 10/16/17 06:47 Toxic Vacuolation Not Reportable 10/16/17 06:47 Dohle Bodies Not Reportable 10/16/17 06:47 Pelger-Huet Anomaly Not Reportable 10/16/17 06:47 Eh Rods Not Reportable 10/16/17 06:47 Platelet Estimate Consistent w auto 10/16/17 06:47 Clumped Platelets Not Reportable 10/16/17 06:47 Plt Clumps, EDTA Not Reportable 10/16/17 06:47 Large Platelets Not Reportable 10/16/17 06:47 Giant Platelets Not Reportable 10/16/17 06:47 Platelet Satelliting Not Reportable 10/16/17 06:47 Plt Morphology Comment Not Reportable 10/16/17 06:47 RBC Morphology Not Reportable 10/16/17 06:47 Dimorphic RBCs Not Reportable 10/16/17 06:47 Polychromasia Not Reportable 10/16/17 06:47 Hypochromasia Not Reportable 10/16/17 06:47 Poikilocytosis Not Reportable 10/16/17 06:47 Anisocytosis Not Reportable 10/16/17 06:47 Microcytosis Not Reportable 10/16/17 06:47 Macrocytosis Not Reportable 10/16/17 06:47 Spherocytes Not Reportable 10/16/17 06:47 Pappenheimer Bodies Not Reportable 10/16/17 06:47 Sickle Cells Not Reportable 10/16/17 06:47 Target Cells Not Reportable 10/16/17 06:47 Tear Drop Cells Not Reportable 10/16/17 06:47 Ovalocytes Not Reportable 10/16/17 06:47 Helmet Cells Not Reportable 10/16/17 06:47 [place] Bodies Not Reportable 10/16/17 06:47 [place] Rings Not Reportable 10/16/17 06:47 [place] Cells Not Reportable 10/16/17 06:47 Bite Cells Not Reportable 10/16/17 06:47 Crenated Cell Not Reportable 10/16/17 06:47 Elliptocytes Not Reportable 10/16/17 06:47 Acanthocytes (Spur) Not Reportable 10/16/17 06:47 Rouleaux Not Reportable 10/16/17 06:47 Hemoglobin C Crystals Not Reportable 10/16/17 06:47 Schistocytes Not Reportable 10/16/17 06:47 Malaria parasites Not Reportable 10/16/17 06:47 [place] Bodies Not Reportable 10/16/17 06:47 Hem Pathologist Commnt No 10/16/17 06:47 PT 13.2 Sec. (12.2-14.9) 10/07/17 14:47 INR 0.95 (0.87-1.13) 10/07/17 14:47 APTT 26.0 Sec. (24.2-36.6) 10/01/17 00:58 Thrombin Time 17.0 Sec. (15.1-19.6) 10/01/17 00:58 Sodium 128 mmol/L (137-145) L 10/17/17 06:39 Potassium 4.7 mmol/L (3.6-5.0) 10/17/17 06:39 Chloride 89.2 mmol/L (98-107) L 10/17/17 06:39 Carbon Dioxide 25 mmol/L (22-30) 10/17/17 06:39 Anion Gap 19 mmol/L 10/17/17 06:39 BUN 29 mg/dL (9-20) H 10/17/17 06:39 Creatinine 0.7 mg/dL (0.8-1.5) L 10/17/17 06:39 Estimated GFR > 60 ml/min 10/17/17 06:39 BUN/Creatinine Ratio 41 % 10/17/17 06:39 Glucose 384 mg/dL (75-100) H 10/17/17 06:39 POC Glucose 121 (70-105) H 10/07/17 11:55 Hemoglobin A1c 6.7 % (4-6) H 10/02/17 05:02 Calcium 8.9 mg/dL (8.4-10.2) 10/17/17 06:39 Phosphorus 3.60 mg/dL (2.5-4.5) 10/10/17 04:53 Magnesium 1.90 mg/dL (1.7-2.3) 10/10/17 04:53 Total Bilirubin 0.20 mg/dL (0.1-1.2) 10/10/17 04:53 AST 50 units/L (5-40) H 10/10/17 04:53 ALT 104 units/L (7-56) H 10/10/17 04:53 Alkaline Phosphatase 79 units/L (35-129) 10/10/17 04:53 Troponin T < 0.010 ng/mL (0.00-0.029) 10/01/17 00:58 C-Reactive Protein 0.00 mg/dL (0.00-1.30) 10/10/17 21:18 Total Protein 6.3 g/dL (6.3-8.2) 10/10/17 04:53 Albumin 3.3 g/dL (3.9-5) L 10/10/17 04:53 Albumin/Globulin Ratio 1.1 % 10/10/17 04:53 Triglycerides 128 mg/dL (2-149) 10/02/17 05:02 Cholesterol 130 mg/dL (50-199) 10/02/17 05:02 LDL Cholesterol Direct 78 mg/dL (50-130) 10/02/17 05:02 HDL Cholesterol 31 mg/dL (40-59) L 10/02/17 05:02 Cholesterol/HDL Ratio 4.19 % 10/02/17 05:02 Vitamin B12 641.8 pg/mL (211-911) 10/01/17 20:04 RBC Folic Acid 522 ng/mL (>280) 10/01/17 20:04 TSH 1.050 mlU/mL (0.270-4.200) 10/01/17 20:04 Urine Color Yellow (Yellow) 10/01/17 05:43 Urine Turbidity Clear (Clear) 10/01/17 05:43 Urine pH 5.0 (5.0-7.0) 10/01/17 05:43 Ur Specific [place] 1.024 (1.003-1.030) 10/01/17 05:43 Urine Protein <15 mg/dl mg/dL (Negative) 10/01/17 05:43 Urine Glucose (UA) Neg mg/dL (Negative) 10/01/17 05:43 Urine Ketones Neg mg/dL (Negative) 10/01/17 05:43 Urine Blood Neg (Negative) 10/01/17 05:43 Urine Nitrite Neg (Negative) 10/01/17 05:43 Urine Bilirubin Neg (Negative) 10/01/17 05:43 Urine Urobilinogen < 2.0 mg/dL (<2.0) 10/01/17 05:43 Ur Leukocyte Esterase Neg (Negative) 10/01/17 05:43 Urine WBC (Auto) 1.0 /HPF (0.0-6.0) 10/01/17 05:43 Urine RBC (Auto) 3.0 /HPF (0.0-6.0) 10/01/17 05:43 U Epithel Cells (Auto) 1.0 /HPF (0-13.0) 10/01/17 05:43 Urine Mucus Few /HPF 10/01/17 05:43 CSF Appearance Cloudy 10/10/17 Unknown CSF Color White 10/10/17 Unknown CSF WBC 42 /mm3 (1-10) 10/10/17 Unknown CSF RBC 1 /mm3 (0-0) 10/10/17 Unknown CSF Seg Neutrophils Not Reportable 10/10/17 Unknown CSF Lymphocytes % Not Reportable 10/10/17 Unknown CSF Reactive Lymphs Not Reportable 10/10/17 Unknown CSF Monocytes % Not Reportable 10/10/17 Unknown CSF Eosinophils % Not Reportable 10/10/17 Unknown CSF Basophils Not Reportable 10/10/17 Unknown CSF Pathologist Review C 10/10/17 Unknown CSF Glucose 148 mg/dL 10/10/17 Unknown CSF Total Protein 55 mg/dL 10/10/17 Unknown Urine Opiates Screen Presumptive negative 10/01/17 05:43 Urine Methadone Screen Presumptive negative 10/01/17 05:43 Ur Barbiturates Screen Presumptive negative 10/01/17 05:43 Ur Phencyclidine Scrn Presumptive negative 10/01/17 05:43 Ur Amphetamines Screen Presumptive negative 10/01/17 05:43 U Benzodiazepines Scrn Presumptive negative 10/01/17 05:43 Urine Cocaine Screen Presumptive negative 10/01/17 05:43 U Marijuana (THC) Screen Presumptive positive 10/01/17 05:43 Drugs of Abuse Note Disclamer 10/01/17 05:43
[2017-10-19] MEDS: DELTASONE PO SCH (10:42)
[2017-10-19] MEDS: TENORMIN PO SCH (10:42)
[2017-10-19] MEDS: LOVENOX SUB-Q SCH (10:43)
[2017-10-19 11:04] LABS: Hematocrit 49.7 % (35.5-45.6); Hemoglobin 16.7 gm/dl (11.8-15.2); Mean Corpuscular HGB Conc 34 % (32-34); Mean Corpuscular Hemoglobin 31 pg (28-32); Mean Corpuscular Volume 94 fl (84-94); Platelet Count 247 K/mm3 (140-440); Red Cell Distribution Width 13.1 % (13.2-15.2)
[2017-10-19 11:30] LABS: BUN/Creatinine Ratio 23; Blood Urea Nitrogen 16 mg/dL (9-20); Calcium 9.4 mg/dL (8.4-10.2); Hemolysis Index 19
[2017-10-20] MEDS: NACL 0.9% 1000 ML 1,000 ML IV SCH (02:00)
[2017-10-20] MEDS: LOVENOX SUB-Q SCH (09:35)
[2017-10-20] MEDS: DELTASONE PO SCH (09:35)
[2017-10-20] MEDS: TENORMIN PO SCH (09:35)
[2017-10-20] MEDS: GLUCOTROL PO SCH ×2 (10:50→16:48)
--- NOTE | 2017-10-20 12:01 | Progress Note ---
Subjective Date of service: 10/20/17 Principal diagnosis: acute ischemic stroke, hypocalcemia, diabetes mellitus type 2, Polycythemia Objective - Constitutional Vitals: Vital Signs - 12hr 10/20/17 10/20/17 10/20/17 04:24 09:35 10:00 Temperature 98.3 F Pulse Rate 67 67 67 Respiratory 18 Rate Blood Pressure 127/82 127/82 O2 Sat by Pulse 94 Oximetry - Labs CBC & Chem 7: 10/19/17 10:47 10/19/17 10:47 Labs: Abnormal lab results 10/20/17 10/20/17 Range/Units 08:41 11:42 POC Glucose 257 H 278 H (70-105)
--- NOTE | 2017-10-20 14:52 | Progress Note ---
Assessment and Plan Assessment and plan: --Acute CVA with right-sided hemiparesis, appears to be ischemic stroke right lateral ellen and medullary Continue aspirin and statin, neuro checks, Physical therapy occupational therapy, neurology following CSF has slight increase in protein but not suggestive of vasculitis--the WBC c/ w ischemic stroke Possible acute subacute/ rehabilitation when clinically stable --Bilateral lower extremity weakness MRI lumbar spine, thoracic spine findings reviewed, Follow PT and OT evaluation and recommendations May need acute rehabilitation, --Type 2 diabetes mellitus; Accu-Chek sliding scale coverage and ADA diet. A1c 6.7, elevated blood sugars probably secondary to Solu-Medrol. Cont to taper steroids. --Leukocytosis. 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 Cont. to taper. No evidence of infection Hyponatremia. Continue NS @100 --Ongoing tobacco use; Smoking cessation counseling and nicotine patch as needed --DVT prophylaxis; Lovenox Physical therapy occupational therapy, rehabilitation Closely monitor the patient and adjust management as needed Full code status Medically stable for discharge. Awaiting wheel chair and family education. Likely dc home with home health tomorrow. History Interval history: Right sided weakness, Bilateral lower ext weakness, No new complaints Hospitalist Physical - Physical exam Narrative exam: Gen:Not in acute distress, lying in bed HEENT:Normocephalic atraumatic Neck: Supple, no JVD Lungs:clear to auscultation bilaterally, no rhonchi, no wheeze Heart:S1 and S2 reg, no murmurs, rubs or gallop Abd: Soft, non tender, non distended, normal bowel sounds Ext: No edema, clubbing or cyanosis Neuro:Awake,alert,oriented x 3,right sided weakness, bilat lower ext weakness - Constitutional Vitals: Temp Pulse Resp BP Pulse Ox 98.3 F 67 18 127/82 94 10/20/17 04:24 10/20/17 10:00 10/20/17 04:24 10/20/17 09:35 10/20/17 04:24 General appearance: Present: no acute distress, well-nourished Results - Labs CBC & Chem 7: 10/19/17 10:47 10/19/17 10:47 Labs: Laboratory Last Values WBC 14.3 K/mm3 (4.5-11.0) H 10/19/17 10:47 RBC 5.30 M/mm3 (3.65-5.03) H 10/19/17 10:47 Hgb 16.7 gm/dl (11.8-15.2) H 10/19/17 10:47 Hct 49.7 % (35.5-45.6) H 10/19/17 10:47 MCV 94 fl (84-94) 10/19/17 10:47 MCH 31 pg (28-32) 10/19/17 10:47 MCHC 34 % (32-34) 10/19/17 10:47 RDW 13.1 % (13.2-15.2) L 10/19/17 10:47 Plt Count 247 K/mm3 (140-440) 10/19/17 10:47 Lymph % (Auto) 17.5 % (13.4-35.0) 10/04/17 04:33 [place] % (Auto) 10.0 % (0.0-7.3) H 10/04/17 04:33 Eos % (Auto) 0.8 % (0.0-4.3) 10/04/17 04:33 Baso % (Auto) 0.4 % (0.0-1.8) 10/04/17 04:33 Lymph # 1.4 K/mm3 (1.2-5.4) 10/04/17 04:33 [place] # 0.8 K/mm3 (0.0-0.8) 10/04/17 04:33 Eos # 0.1 K/mm3 (0.0-0.4) 10/04/17 04:33 Baso # 0.0 K/mm3 (0.0-0.1) 10/04/17 04:33 Add Manual Diff Complete 10/16/17 06:47 Total Counted 100 10/16/17 06:47 Seg Neutrophils % [employer] C[employer] Helper 10/16/17 06:47 Seg Neuts % (Manual) 87.0 % (40.0-70.0) H 10/16/17 06:47 Band Neutrophils % 0 % 10/16/17 06:47 Lymphocytes % (Manual) 5.0 % (13.4-35.0) L 10/16/17 06:47 Reactive Lymphs % (Man) 1.0 % 10/16/17 06:47 Monocytes % (Manual) 6.0 % (0.0-7.3) 10/16/17 06:47 Eosinophils % (Manual) 0 % (0.0-4.3) 10/16/17 06:47 Basophils % (Manual) 0 % (0.0-1.8) 10/16/17 06:47 Metamyelocytes % 1.0 % 10/16/17 06:47 Myelocytes % 0 % 10/16/17 06:47 Promyelocytes % 0 % 10/16/17 06:47 Blast Cells % 0 % 10/16/17 06:47 Nucleated RBC % Not Reportable 10/16/17 06:47 Seg Neutrophils # 5.7 K/mm3 (1.8-7.7) 10/04/17 04:33 Seg Neutrophils # Man 17.8 K/mm3 (1.8-7.7) H 10/16/17 06:47 Band Neutrophils # 0.0 K/mm3 10/16/17 06:47 Lymphocytes # (Manual) 1.0 K/mm3 (1.2-5.4) L 10/16/17 06:47 Abs React Lymphs (Man) 0.2 K/mm3 10/16/17 06:47 Monocytes # (Manual) 1.2 K/mm3 (0.0-0.8) H 10/16/17 06:47 Eosinophils # (Manual) 0.0 K/mm3 (0.0-0.4) 10/16/17 06:47 Basophils # (Manual) 0.0 K/mm3 (0.0-0.1) 10/16/17 06:47 Metamyelocytes # 0.2 K/mm3 10/16/17 06:47 Myelocytes # 0.0 K/mm3 10/16/17 06:47 Promyelocytes # 0.0 K/mm3 10/16/17 06:47 Blast Cells # 0.0 K/mm3 10/16/17 06:47 WBC Morphology Not Reportable 10/16/17 06:47 Hypersegmented Neuts Not Reportable 10/16/17 06:47 Hyposegmented Neuts Not Reportable 10/16/17 06:47 Hypogranular Neuts Not Reportable 10/16/17 06:47 Smudge Cells Not Reportable 10/16/17 06:47 Toxic Granulation Not Reportable 10/16/17 06:47 Toxic Vacuolation Not Reportable 07/29/18 06:47 Dohle Bodies Not Reportable 10/16/17 06:47 Pelger-Huet Anomaly Not Reportable 10/16/17 06:47 Eh Rods Not Reportable 10/16/17 06:47 Platelet Estimate Consistent w auto 10/16/17 06:47 Clumped Platelets Not Reportable 10/16/17 06:47 Plt Clumps, EDTA Not Reportable 10/16/17 06:47 Large Platelets Not Reportable 10/16/17 06:47 Giant Platelets Not Reportable 10/16/17 06:47 Platelet Satelliting Not Reportable 10/16/17 06:47 Plt Morphology Comment Not Reportable 10/16/17 06:47 RBC Morphology Not Reportable 10/16/17 06:47 Dimorphic RBCs Not Reportable 10/16/17 06:47 Polychromasia Not Reportable 10/16/17 06:47 Hypochromasia Not Reportable 10/16/17 06:47 Poikilocytosis Not Reportable 10/16/17 06:47 Anisocytosis Not Reportable 10/16/17 06:47 Microcytosis Not Reportable 10/16/17 06:47 Macrocytosis Not Reportable 10/16/17 06:47 Spherocytes Not Reportable 10/16/17 06:47 Pappenheimer Bodies Not Reportable 10/16/17 06:47 Sickle Cells Not Reportable 10/16/17 06:47 Target Cells Not Reportable 10/16/17 06:47 Tear Drop Cells Not Reportable 10/16/17 06:47 Ovalocytes Not Reportable 10/16/17 06:47 Helmet Cells Not Reportable 10/16/17 06:47 [place] Bodies Not Reportable 10/16/17 06:47 [place] Rings Not Reportable 10/16/17 06:47 [place] Cells Not Reportable 10/16/17 06:47 Bite Cells Not Reportable 10/16/17 06:47 Crenated Cell Not Reportable 10/16/17 06:47 Elliptocytes Not Reportable 10/16/17 06:47 Acanthocytes (Spur) Not Reportable 10/16/17 06:47 Rouleaux Not Reportable 10/16/17 06:47 Hemoglobin C Crystals Not Reportable 10/16/17 06:47 Schistocytes Not Reportable 10/16/17 06:47 Malaria parasites Not Reportable 10/16/17 06:47 [place] Bodies Not Reportable 10/16/17 06:47 Hem Pathologist Commnt No 10/16/17 06:47 PT 13.2 Sec. (12.2-14.9) 10/07/17 14:47 INR 0.95 (0.87-1.13) 10/07/17 14:47 APTT 26.0 Sec. (24.2-36.6) 10/01/17 00:58 Thrombin Time 17.0 Sec. (15.1-19.6) 10/01/17 00:58 Sodium 135 mmol/L (137-145) L D 10/19/17 10:47 Potassium 4.5 mmol/L (3.6-5.0) 10/19/17 10:47 Chloride 90.8 mmol/L (98-107) L 10/19/17 10:47 Carbon Dioxide 28 mmol/L (22-30) 10/19/17 10:47 Anion Gap 21 mmol/L 10/19/17 10:47 BUN 16 mg/dL (9-20) 10/19/17 10:47 Creatinine 0.7 mg/dL (0.8-1.5) L 10/19/17 10:47 Estimated GFR > 60 ml/min 10/19/17 10:47 BUN/Creatinine Ratio 23 % 10/19/17 10:47 Glucose 315 mg/dL (75-100) H 10/19/17 10:47 POC Glucose 278 (70-105) H 10/20/17 11:42 Hemoglobin A1c 6.7 % (4-6) H 10/02/17 05:02 Calcium 9.4 mg/dL (8.4-10.2) 10/19/17 10:47 Phosphorus 3.60 mg/dL (2.5-4.5) 10/10/17 04:53 Magnesium 1.90 mg/dL (1.7-2.3) 10/10/17 04:53 Total Bilirubin 0.20 mg/dL (0.1-1.2) 10/10/17 04:53 AST 50 units/L (5-40) H 10/10/17 04:53 ALT 104 units/L (7-56) H 10/10/17 04:53 Alkaline Phosphatase 79 units/L (35-129) 10/10/17 04:53 Troponin T < 0.010 ng/mL (0.00-0.029) 10/01/17 00:58 C-Reactive Protein 0.00 mg/dL (0.00-1.30) 10/10/17 21:18 Total Protein 6.3 g/dL (6.3-8.2) 10/10/17 04:53 Albumin 3.3 g/dL (3.9-5) L 10/10/17 04:53 Albumin/Globulin Ratio 1.1 % 10/10/17 04:53 Triglycerides 128 mg/dL (2-149) 10/02/17 05:02 Cholesterol 130 mg/dL (50-199) 10/02/17 05:02 LDL Cholesterol Direct 78 mg/dL (50-130) 10/02/17 05:02 HDL Cholesterol 31 mg/dL (40-59) L 10/02/17 05:02 Cholesterol/HDL Ratio 4.19 % 10/02/17 05:02 Vitamin B12 641.8 pg/mL (211-911) 10/01/17 20:04 RBC Folic Acid 522 ng/mL (>280) 10/01/17 20:04 TSH 1.050 mlU/mL (0.270-4.200) 10/01/17 20:04 Urine Color Yellow (Yellow) 10/01/17 05:43 Urine Turbidity Clear (Clear) 10/01/17 05:43 Urine pH 5.0 (5.0-7.0) 10/01/17 05:43 Ur Specific [place] 1.024 (1.003-1.030) 10/01/17 05:43 Urine Protein <15 mg/dl mg/dL (Negative) 10/01/17 05:43 Urine Glucose (UA) Neg mg/dL (Negative) 10/01/17 05:43 Urine Ketones Neg mg/dL (Negative) 10/01/17 05:43 Urine Blood Neg (Negative) 10/01/17 05:43 Urine Nitrite Neg (Negative) 10/01/17 05:43 Urine Bilirubin Neg (Negative) 10/01/17 05:43 Urine Urobilinogen < 2.0 mg/dL (<2.0) 10/01/17 05:43 Ur Leukocyte Esterase Neg (Negative) 10/01/17 05:43 Urine WBC (Auto) 1.0 /HPF (0.0-6.0) 10/01/17 05:43 Urine RBC (Auto) 3.0 /HPF (0.0-6.0) 10/01/17 05:43 U Epithel Cells (Auto) 1.0 /HPF (0-13.0) 10/01/17 05:43 Urine Mucus Few /HPF 10/01/17 05:43 CSF Appearance Cloudy 10/10/17 Unknown CSF Color White 10/10/17 Unknown CSF WBC 42 /mm3 (1-10) 10/10/17 Unknown CSF RBC 1 /mm3 (0-0) 10/10/17 Unknown CSF Seg Neutrophils Not Reportable 10/10/17 Unknown CSF Lymphocytes % Not Reportable 10/10/17 Unknown CSF Reactive Lymphs Not Reportable 10/10/17 Unknown CSF Monocytes % Not Reportable 10/10/17 Unknown CSF Eosinophils % Not Reportable 10/10/17 Unknown CSF Basophils Not Reportable 10/10/17 Unknown CSF Pathologist Review C 10/10/17 Unknown CSF Glucose 148 mg/dL 10/10/17 Unknown CSF Total Protein 55 mg/dL 10/10/17 Unknown Urine Opiates Screen Presumptive negative 10/01/17 05:43 Urine Methadone Screen Presumptive negative 10/01/17 05:43 Ur Barbiturates Screen Presumptive negative 10/01/17 05:43 Ur Phencyclidine Scrn Presumptive negative 10/01/17 05:43 Ur Amphetamines Screen Presumptive negative 10/01/17 05:43 U Benzodiazepines Scrn Presumptive negative 10/01/17 05:43 Urine Cocaine Screen Presumptive negative 10/01/17 05:43 U Marijuana (THC) Screen Presumptive positive 10/01/17 05:43 Drugs of Abuse Note Disclamer 10/01/17 05:43
[2017-10-21] MEDS: NACL 0.9% 1000 ML 1,000 ML IV SCH ×2 (03:01→17:55)
[2017-10-21] MEDS: LOVENOX SUB-Q SCH (10:03)
[2017-10-21] MEDS: DELTASONE PO SCH (10:03)
[2017-10-21] MEDS: TENORMIN PO SCH (10:04)
[2017-10-21] MEDS: GLUCOTROL PO SCH ×2 (10:05→17:53)
[2017-10-21] MEDS: MIRALAX 3350 PO PRN ×2 (10:08→17:57)
[2017-10-21] MEDS ORDERED: D50W (25GM) Syringe IV PRN (12:41)
--- NOTE | 2017-10-21 14:19 | Progress Note ---
Assessment and Plan Assessment and plan: --Acute CVA with right-sided hemiparesis, appears to be ischemic stroke right lateral ellen and medullary Continue aspirin and statin, neuro checks, Physical therapy occupational therapy, neurology following CSF has slight increase in protein but not suggestive of vasculitis--the WBC c/ w ischemic stroke Possible acute subacute/ rehabilitation when clinically stable --Bilateral lower extremity weakness MRI lumbar spine, thoracic spine findings reviewed, Follow PT and OT evaluation and recommendations May need acute rehabilitation, --Type 2 diabetes mellitus; Accu-Chek sliding scale coverage and ADA diet. A1c 6.7, elevated blood sugars probably secondary to Solu-Medrol. Cont to taper steroids. --Leukocytosis. Etiology likely secondary to Solu-Medrol, now on Prednisone, continue to taper. No evidence of infection Hyponatremia. Continue NS @100 --Ongoing tobacco use; Smoking cessation counseling and nicotine patch as needed --DVT prophylaxis; Lovenox Physical therapy occupational therapy, rehabilitation Closely monitor the patient and adjust management as needed Full code status Medically stable for discharge. Awaiting wheel chair and family education. History Interval history: Right sided weakness, Bilateral lower ext weakness, No new complaints Hospitalist Physical - Physical exam Narrative exam: Gen:Not in acute distress, lying in bed HEENT:Normocephalic atraumatic Neck: Supple, no JVD Lungs:clear to auscultation bilaterally, no rhonchi, no wheeze Heart:S1 and S2 reg, no murmurs, rubs or gallop Abd: Soft, non tender, non distended, normal bowel sounds Ext: No edema, clubbing or cyanosis Neuro:Awake,alert,oriented x 3,right sided weakness, bilat lower ext weakness - Constitutional Vitals: Temp Pulse Resp BP Pulse Ox 98.4 F 70 20 124/81 98 10/21/17 11:40 10/21/17 11:40 10/21/17 11:40 10/21/17 11:40 10/21/17 11:40 General appearance: Present: no acute distress, well-nourished Results - Labs CBC & Chem 7: 10/19/17 10:47 10/19/17 10:47 Labs: Laboratory Last Values WBC 14.3 K/mm3 (4.5-11.0) H 10/19/17 10:47 RBC 5.30 M/mm3 (3.65-5.03) H 10/19/17 10:47 Hgb 16.7 gm/dl (11.8-15.2) H 10/19/17 10:47 Hct 49.7 % (35.5-45.6) H 10/19/17 10:47 MCV 94 fl (84-94) 10/19/17 10:47 MCH 31 pg (28-32) 10/19/17 10:47 MCHC 34 % (32-34) 10/19/17 10:47 RDW 13.1 % (13.2-15.2) L 10/19/17 10:47 Plt Count 247 K/mm3 (140-440) 10/19/17 10:47 Lymph % (Auto) 17.5 % (13.4-35.0) 10/04/17 04:33 [place] % (Auto) 10.0 % (0.0-7.3) H 10/04/17 04:33 Eos % (Auto) 0.8 % (0.0-4.3) 10/04/17 04:33 Baso % (Auto) 0.4 % (0.0-1.8) 10/04/17 04:33 Lymph # 1.4 K/mm3 (1.2-5.4) 10/04/17 04:33 [place] # 0.8 K/mm3 (0.0-0.8) 10/04/17 04:33 Eos # 0.1 K/mm3 (0.0-0.4) 10/04/17 04:33 Baso # 0.0 K/mm3 (0.0-0.1) 10/04/17 04:33 Add Manual Diff Complete 10/16/17 06:47 Total Counted 100 10/16/17 06:47 Seg Neutrophils % [place] Laborer 10/16/17 06:47 Seg Neuts % (Manual) 87.0 % (40.0-70.0) H 10/16/17 06:47 Band Neutrophils % 0 % 10/16/17 06:47 Lymphocytes % (Manual) 5.0 % (13.4-35.0) L 10/16/17 06:47 Reactive Lymphs % (Man) 1.0 % 10/16/17 06:47 Monocytes % (Manual) 6.0 % (0.0-7.3) 10/16/17 06:47 Eosinophils % (Manual) 0 % (0.0-4.3) 10/16/17 06:47 Basophils % (Manual) 0 % (0.0-1.8) 10/16/17 06:47 Metamyelocytes % 1.0 % 10/16/17 06:47 Myelocytes % 0 % 10/16/17 06:47 Promyelocytes % 0 % 10/16/17 06:47 Blast Cells % 0 % 10/16/17 06:47 Nucleated RBC % Not Reportable 10/16/17 06:47 Seg Neutrophils # 5.7 K/mm3 (1.8-7.7) 10/04/17 04:33 Seg Neutrophils # Man 17.8 K/mm3 (1.8-7.7) H 10/16/17 06:47 Band Neutrophils # 0.0 K/mm3 10/16/17 06:47 Lymphocytes # (Manual) 1.0 K/mm3 (1.2-5.4) L 10/16/17 06:47 Abs React Lymphs (Man) 0.2 K/mm3 10/16/17 06:47 Monocytes # (Manual) 1.2 K/mm3 (0.0-0.8) H 10/16/17 06:47 Eosinophils # (Manual) 0.0 K/mm3 (0.0-0.4) 10/16/17 06:47 Basophils # (Manual) 0.0 K/mm3 (0.0-0.1) 10/16/17 06:47 Metamyelocytes # 0.2 K/mm3 10/16/17 06:47 Myelocytes # 0.0 K/mm3 10/16/17 06:47 Promyelocytes # 0.0 K/mm3 10/16/17 06:47 Blast Cells # 0.0 K/mm3 10/16/17 06:47 WBC Morphology Not Reportable 10/16/17 06:47 Hypersegmented Neuts Not Reportable 10/16/17 06:47 Hyposegmented Neuts Not Reportable 10/16/17 06:47 Hypogranular Neuts Not Reportable 10/16/17 06:47 Smudge Cells Not Reportable 10/16/17 06:47 Toxic Granulation Not Reportable 10/16/17 06:47 Toxic Vacuolation Not Reportable 10/16/17 06:47 Dohle Bodies Not Reportable 10/16/17 06:47 Pelger-Huet Anomaly Not Reportable 10/16/17 06:47 Eh Rods Not Reportable 10/16/17 06:47 Platelet Estimate Consistent w auto 10/16/17 06:47 Clumped Platelets Not Reportable 10/16/17 06:47 Plt Clumps, EDTA Not Reportable 10/16/17 06:47 Large Platelets Not Reportable 10/16/17 06:47 Giant Platelets Not Reportable 10/16/17 06:47 Platelet Satelliting Not Reportable 10/16/17 06:47 Plt Morphology Comment Not Reportable 10/16/17 06:47 RBC Morphology Not Reportable 10/16/17 06:47 Dimorphic RBCs Not Reportable 10/16/17 06:47 Polychromasia Not Reportable 10/16/17 06:47 Hypochromasia Not Reportable 10/16/17 06:47 Poikilocytosis Not Reportable 10/16/17 06:47 Anisocytosis Not Reportable 10/16/17 06:47 Microcytosis Not Reportable 10/16/17 06:47 Macrocytosis Not Reportable 10/16/17 06:47 Spherocytes Not Reportable 10/16/17 06:47 Pappenheimer Bodies Not Reportable 10/16/17 06:47 Sickle Cells Not Reportable 10/16/17 06:47 Target Cells Not Reportable 10/16/17 06:47 Tear Drop Cells Not Reportable 10/16/17 06:47 Ovalocytes Not Reportable 10/16/17 06:47 Helmet Cells Not Reportable 10/16/17 06:47 [place] Bodies Not Reportable 10/16/17 06:47 [place] Rings Not Reportable 10/16/17 06:47 [place] Cells Not Reportable 10/16/17 06:47 Bite Cells Not Reportable 10/16/17 06:47 Crenated Cell Not Reportable 10/16/17 06:47 Elliptocytes Not Reportable 10/16/17 06:47 Acanthocytes (Spur) Not Reportable 10/16/17 06:47 Rouleaux Not Reportable 10/16/17 06:47 Hemoglobin C Crystals Not Reportable 10/16/17 06:47 Schistocytes Not Reportable 10/16/17 06:47 Malaria parasites Not Reportable 10/16/17 06:47 [place] Bodies Not Reportable 10/16/17 06:47 Hem Pathologist Commnt No 10/16/17 06:47 PT 13.2 Sec. (12.2-14.9) 10/07/17 14:47 INR 0.95 (0.87-1.13) 10/07/17 14:47 APTT 26.0 Sec. (24.2-36.6) 10/01/17 00:58 Thrombin Time 17.0 Sec. (15.1-19.6) 10/01/17 00:58 Sodium 135 mmol/L (137-145) L D 10/19/17 10:47 Potassium 4.5 mmol/L (3.6-5.0) 10/19/17 10:47 Chloride 90.8 mmol/L (98-107) L 10/19/17 10:47 Carbon Dioxide 28 mmol/L (22-30) 10/19/17 10:47 Anion Gap 21 mmol/L 10/19/17 10:47 BUN 16 mg/dL (9-20) 10/19/17 10:47 Creatinine 0.7 mg/dL (0.8-1.5) L 10/19/17 10:47 Estimated GFR > 60 ml/min 10/19/17 10:47 BUN/Creatinine Ratio 23 % 10/19/17 10:47 Glucose 315 mg/dL (75-100) H 10/19/17 10:47 POC Glucose 275 (70-105) H 10/21/17 12:11 Hemoglobin A1c 6.7 % (4-6) H 10/02/17 05:02 Calcium 9.4 mg/dL (8.4-10.2) 10/19/17 10:47 Phosphorus 3.60 mg/dL (2.5-4.5) 10/10/17 04:53 Magnesium 1.90 mg/dL (1.7-2.3) 10/10/17 04:53 Total Bilirubin 0.20 mg/dL (0.1-1.2) 10/10/17 04:53 AST 50 units/L (5-40) H 10/10/17 04:53 ALT 104 units/L (7-56) H 10/10/17 04:53 Alkaline Phosphatase 79 units/L (35-129) 10/10/17 04:53 Troponin T < 0.010 ng/mL (0.00-0.029) 10/01/17 00:58 C-Reactive Protein 0.00 mg/dL (0.00-1.30) 10/10/17 21:18 Total Protein 6.3 g/dL (6.3-8.2) 10/10/17 04:53 Albumin 3.3 g/dL (3.9-5) L 10/10/17 04:53 Albumin/Globulin Ratio 1.1 % 10/10/17 04:53 Triglycerides 128 mg/dL (2-149) 10/02/17 05:02 Cholesterol 130 mg/dL (50-199) 10/02/17 05:02 LDL Cholesterol Direct 78 mg/dL (50-130) 10/02/17 05:02 HDL Cholesterol 31 mg/dL (40-59) L 10/02/17 05:02 Cholesterol/HDL Ratio 4.19 % 10/02/17 05:02 Vitamin B12 641.8 pg/mL (211-911) 10/01/17 20:04 RBC Folic Acid 522 ng/mL (>280) 10/01/17 20:04 TSH 1.050 mlU/mL (0.270-4.200) 10/01/17 20:04 Urine Color Yellow (Yellow) 10/01/17 05:43 Urine Turbidity Clear (Clear) 10/01/17 05:43 Urine pH 5.0 (5.0-7.0) 10/01/17 05:43 Ur Specific [place] 1.024 (1.003-1.030) 10/01/17 05:43 Urine Protein <15 mg/dl mg/dL (Negative) 10/01/17 05:43 Urine Glucose (UA) Neg mg/dL (Negative) 10/01/17 05:43 Urine Ketones Neg mg/dL (Negative) 10/01/17 05:43 Urine Blood Neg (Negative) 10/01/17 05:43 Urine Nitrite Neg (Negative) 10/01/17 05:43 Urine Bilirubin Neg (Negative) 10/01/17 05:43 Urine Urobilinogen < 2.0 mg/dL (<2.0) 10/01/17 05:43 Ur Leukocyte Esterase Neg (Negative) 10/01/17 05:43 Urine WBC (Auto) 1.0 /HPF (0.0-6.0) 10/01/17 05:43 Urine RBC (Auto) 3.0 /HPF (0.0-6.0) 10/01/17 05:43 U Epithel Cells (Auto) 1.0 /HPF (0-13.0) 10/01/17 05:43 Urine Mucus Few /HPF 10/01/17 05:43 CSF Appearance Cloudy 10/10/17 Unknown CSF Color White 10/10/17 Unknown CSF WBC 42 /mm3 (1-10) 10/10/17 Unknown CSF RBC 1 /mm3 (0-0) 10/10/17 Unknown CSF Seg Neutrophils Not Reportable 10/10/17 Unknown CSF Lymphocytes % Not Reportable 10/10/17 Unknown CSF Reactive Lymphs Not Reportable 10/10/17 Unknown CSF Monocytes % Not Reportable 10/10/17 Unknown CSF Eosinophils % Not Reportable 10/10/17 Unknown CSF Basophils Not Reportable 10/10/17 Unknown CSF Pathologist Review C 10/10/17 Unknown CSF Glucose 148 mg/dL 10/10/17 Unknown CSF Total Protein 55 mg/dL 10/10/17 Unknown Urine Opiates Screen Presumptive negative 10/01/17 05:43 Urine Methadone Screen Presumptive negative 10/01/17 05:43 Ur Barbiturates Screen Presumptive negative 10/01/17 05:43 Ur Phencyclidine Scrn Presumptive negative 10/01/17 05:43 Ur Amphetamines Screen Presumptive negative 10/01/17 05:43 U Benzodiazepines Scrn Presumptive negative 10/01/17 05:43 Urine Cocaine Screen Presumptive negative 10/01/17 05:43 U Marijuana (THC) Screen Presumptive positive 10/01/17 05:43 Drugs of Abuse Note Disclamer 10/01/17 05:43
[2017-10-21] MEDS: HumaLOG SUB-Q SCH ×2 (17:52→22:42)
[2017-10-21] MEDS: GLUCOPHAGE PO SCH (17:53)
[2017-10-22] MEDS: NACL 0.9% 1000 ML 1,000 ML IV SCH ×2 (03:23→11:38)
[2017-10-22] MEDS: HumaLOG SUB-Q SCH ×4 (08:58→22:58)
[2017-10-22] MEDS: GLUCOTROL PO SCH ×2 (08:59→17:10)
[2017-10-22] MEDS: GLUCOPHAGE PO SCH ×2 (08:59→17:10)
[2017-10-22] MEDS: DELTASONE PO SCH (09:42)
[2017-10-22] MEDS: TENORMIN PO SCH (09:42)
[2017-10-22] MEDS: LOVENOX SUB-Q SCH (09:42)
--- NOTE | 2017-10-22 12:45 | Progress Note ---
Assessment and Plan Assessment and plan: --Acute CVA with right-sided hemiparesis, appears to be ischemic stroke right lateral ellen and medullary Continue aspirin and statin, neuro checks, Physical therapy occupational therapy, neurology following CSF has slight increase in protein but not suggestive of vasculitis--the WBC c/ w ischemic stroke Possible acute subacute/ rehabilitation when clinically stable --Bilateral lower extremity weakness MRI lumbar spine, thoracic spine findings reviewed, Follow PT and OT evaluation and recommendations May need acute rehabilitation, --Type 2 diabetes mellitus; Accu-Chek sliding scale coverage and ADA diet. A1c 6.7, elevated blood sugars probably secondary to Solu-Medrol. Cont to taper steroids. --Leukocytosis. Etiology likely secondary to Solu-Medrol, now on Prednisone, continue to taper. No evidence of infection Hyponatremia. Continue NS @100 Recheck today. --Ongoing tobacco use; Smoking cessation counseling and nicotine patch as needed --DVT prophylaxis; Lovenox Physical therapy occupational therapy, rehabilitation Closely monitor the patient and adjust management as needed Full code status Medically stable for discharge. Awaiting wheel chair and family education. History Interval history: Right sided weakness, Bilateral lower ext weakness, No new complaints Hospitalist Physical - Physical exam Narrative exam: Gen:Not in acute distress, lying in bed HEENT:Normocephalic atraumatic Neck: Supple, no JVD Lungs:clear to auscultation bilaterally, no rhonchi, no wheeze Heart:S1 and S2 reg, no murmurs, rubs or gallop Abd: Soft, non tender, non distended, normal bowel sounds Ext: No edema, clubbing or cyanosis Neuro:Awake,alert,oriented x 3,right sided weakness, bilat lower ext weakness - Constitutional Vitals: Temp Pulse Resp BP Pulse Ox 99.2 F 80 20 114/78 95 10/22/17 07:25 10/22/17 09:42 10/22/17 07:25 10/22/17 09:42 10/22/17 07:25 General appearance: Present: no acute distress, well-nourished Results - Labs CBC & Chem 7: 10/19/17 10:47 10/19/17 10:47 Labs: Laboratory Last Values WBC 14.3 K/mm3 (4.5-11.0) H 10/19/17 10:47 RBC 5.30 M/mm3 (3.65-5.03) H 10/19/17 10:47 Hgb 16.7 gm/dl (11.8-15.2) H 10/19/17 10:47 Hct 49.7 % (35.5-45.6) H 10/19/17 10:47 MCV 94 fl (84-94) 10/19/17 10:47 MCH 31 pg (28-32) 10/19/17 10:47 MCHC 34 % (32-34) 10/19/17 10:47 RDW 13.1 % (13.2-15.2) L 10/19/17 10:47 Plt Count 247 K/mm3 (140-440) 10/19/17 10:47 Lymph % (Auto) 17.5 % (13.4-35.0) 10/04/17 04:33 [place] % (Auto) 10.0 % (0.0-7.3) H 10/04/17 04:33 Eos % (Auto) 0.8 % (0.0-4.3) 10/04/17 04:33 Baso % (Auto) 0.4 % (0.0-1.8) 10/04/17 04:33 Lymph # 1.4 K/mm3 (1.2-5.4) 10/04/17 04:33 [place] # 0.8 K/mm3 (0.0-0.8) 10/04/17 04:33 Eos # 0.1 K/mm3 (0.0-0.4) 10/04/17 04:33 Baso # 0.0 K/mm3 (0.0-0.1) 10/04/17 04:33 Add Manual Diff Complete 10/16/17 06:47 Total Counted 100 10/16/17 06:47 Seg Neutrophils % Multiple Tube Winding Machine Operator 10/16/17 06:47 Seg Neuts % (Manual) 87.0 % (40.0-70.0) H 10/16/17 06:47 Band Neutrophils % 0 % 10/16/17 06:47 Lymphocytes % (Manual) 5.0 % (13.4-35.0) L 10/16/17 06:47 Reactive Lymphs % (Man) 1.0 % 10/16/17 06:47 Monocytes % (Manual) 6.0 % (0.0-7.3) 10/16/17 06:47 Eosinophils % (Manual) 0 % (0.0-4.3) 10/16/17 06:47 Basophils % (Manual) 0 % (0.0-1.8) 10/16/17 06:47 Metamyelocytes % 1.0 % 10/16/17 06:47 Myelocytes % 0 % 10/16/17 06:47 Promyelocytes % 0 % 10/16/17 06:47 Blast Cells % 0 % 10/16/17 06:47 Nucleated RBC % Not Reportable 10/16/17 06:47 Seg Neutrophils # 5.7 K/mm3 (1.8-7.7) 10/04/17 04:33 Seg Neutrophils # Man 17.8 K/mm3 (1.8-7.7) H 10/16/17 06:47 Band Neutrophils # 0.0 K/mm3 10/16/17 06:47 Lymphocytes # (Manual) 1.0 K/mm3 (1.2-5.4) L 10/16/17 06:47 Abs React Lymphs (Man) 0.2 K/mm3 10/16/17 06:47 Monocytes # (Manual) 1.2 K/mm3 (0.0-0.8) H 10/16/17 06:47 Eosinophils # (Manual) 0.0 K/mm3 (0.0-0.4) 10/16/17 06:47 Basophils # (Manual) 0.0 K/mm3 (0.0-0.1) 10/16/17 06:47 Metamyelocytes # 0.2 K/mm3 10/16/17 06:47 Myelocytes # 0.0 K/mm3 10/16/17 06:47 Promyelocytes # 0.0 K/mm3 10/16/17 06:47 Blast Cells # 0.0 K/mm3 10/16/17 06:47 WBC Morphology Not Reportable 10/16/17 06:47 Hypersegmented Neuts Not Reportable 10/16/17 06:47 Hyposegmented Neuts Not Reportable 10/16/17 06:47 Hypogranular Neuts Not Reportable 10/16/17 06:47 Smudge Cells Not Reportable 10/16/17 06:47 Toxic Granulation Not Reportable 10/16/17 06:47 Toxic Vacuolation Not Reportable 10/16/17 06:47 Dohle Bodies Not Reportable 10/16/17 06:47 Pelger-Huet Anomaly Not Reportable 10/16/17 06:47 Eh Rods Not Reportable 10/16/17 06:47 Platelet Estimate Consistent w auto 10/16/17 06:47 Clumped Platelets Not Reportable 10/16/17 06:47 Plt Clumps, EDTA Not Reportable 10/16/17 06:47 Large Platelets Not Reportable 10/16/17 06:47 Giant Platelets Not Reportable 10/16/17 06:47 Platelet Satelliting Not Reportable 10/16/17 06:47 Plt Morphology Comment Not Reportable 10/16/17 06:47 RBC Morphology Not Reportable 10/16/17 06:47 Dimorphic RBCs Not Reportable 10/16/17 06:47 Polychromasia Not Reportable 10/16/17 06:47 Hypochromasia Not Reportable 10/16/17 06:47 Poikilocytosis Not Reportable 10/16/17 06:47 Anisocytosis Not Reportable 10/16/17 06:47 Microcytosis Not Reportable 10/16/17 06:47 Macrocytosis Not Reportable 10/16/17 06:47 Spherocytes Not Reportable 10/16/17 06:47 Pappenheimer Bodies Not Reportable 10/16/17 06:47 Sickle Cells Not Reportable 10/16/17 06:47 Target Cells Not Reportable 10/16/17 06:47 Tear Drop Cells Not Reportable 10/16/17 06:47 Ovalocytes Not Reportable 10/16/17 06:47 Helmet Cells Not Reportable 10/16/17 06:47 [place] Bodies Not Reportable 10/16/17 06:47 [place] Rings Not Reportable 10/16/17 06:47 Jalyn Cells Not Reportable 10/16/17 06:47 Bite Cells Not Reportable 10/16/17 06:47 Crenated Cell Not Reportable 10/16/17 06:47 Elliptocytes Not Reportable 10/16/17 06:47 Acanthocytes (Spur) Not Reportable 10/16/17 06:47 Rouleaux Not Reportable 10/16/17 06:47 Hemoglobin C Crystals Not Reportable 10/16/17 06:47 Schistocytes Not Reportable 10/16/17 06:47 Malaria parasites Not Reportable 10/16/17 06:47 [place] Bodies Not Reportable 10/16/17 06:47 Hem Pathologist Commnt No 10/16/17 06:47 PT 13.2 Sec. (12.2-14.9) 10/07/17 14:47 INR 0.95 (0.87-1.13) 10/07/17 14:47 APTT 26.0 Sec. (24.2-36.6) 10/01/17 00:58 Thrombin Time 17.0 Sec. (15.1-19.6) 10/01/17 00:58 Sodium 135 mmol/L (137-145) L D 10/19/17 10:47 Potassium 4.5 mmol/L (3.6-5.0) 10/19/17 10:47 Chloride 90.8 mmol/L (98-107) L 10/19/17 10:47 Carbon Dioxide 28 mmol/L (22-30) 10/19/17 10:47 Anion Gap 21 mmol/L 10/19/17 10:47 BUN 16 mg/dL (9-20) 10/19/17 10:47 Creatinine 0.7 mg/dL (0.8-1.5) L 10/19/17 10:47 Estimated GFR > 60 ml/min 10/19/17 10:47 BUN/Creatinine Ratio 23 % 10/19/17 10:47 Glucose 315 mg/dL (75-100) H 10/19/17 10:47 POC Glucose 229 (70-105) H 10/22/17 06:17 Hemoglobin A1c 6.7 % (4-6) H 10/02/17 05:02 Calcium 9.4 mg/dL (8.4-10.2) 10/19/17 10:47 Phosphorus 3.60 mg/dL (2.5-4.5) 10/10/17 04:53 Magnesium 1.90 mg/dL (1.7-2.3) 10/10/17 04:53 Total Bilirubin 0.20 mg/dL (0.1-1.2) 10/10/17 04:53 AST 50 units/L (5-40) H 10/10/17 04:53 ALT 104 units/L (7-56) H 10/10/17 04:53 Alkaline Phosphatase 79 units/L (35-129) 10/10/17 04:53 Troponin T < 0.010 ng/mL (0.00-0.029) 10/01/17 00:58 C-Reactive Protein 0.00 mg/dL (0.00-1.30) 10/10/17 21:18 Total Protein 6.3 g/dL (6.3-8.2) 10/10/17 04:53 Albumin 3.3 g/dL (3.9-5) L 10/10/17 04:53 Albumin/Globulin Ratio 1.1 % 10/10/17 04:53 Triglycerides 128 mg/dL (2-149) 10/02/17 05:02 Cholesterol 130 mg/dL (50-199) 10/02/17 05:02 LDL Cholesterol Direct 78 mg/dL (50-130) 10/02/17 05:02 HDL Cholesterol 31 mg/dL (40-59) L 10/02/17 05:02 Cholesterol/HDL Ratio 4.19 % 10/02/17 05:02 Vitamin B12 641.8 pg/mL (211-911) 10/01/17 20:04 RBC Folic Acid 522 ng/mL (>280) 10/01/17 20:04 TSH 1.050 mlU/mL (0.270-4.200) 10/01/17 20:04 Urine Color Yellow (Yellow) 10/01/17 05:43 Urine Turbidity Clear (Clear) 10/01/17 05:43 Urine pH 5.0 (5.0-7.0) 10/01/17 05:43 Ur Specific [place] 1.024 (1.003-1.030) 10/01/17 05:43 Urine Protein <15 mg/dl mg/dL (Negative) 10/01/17 05:43 Urine Glucose (UA) Neg mg/dL (Negative) 10/01/17 05:43 Urine Ketones Neg mg/dL (Negative) 10/01/17 05:43 Urine Blood Neg (Negative) 10/01/17 05:43 Urine Nitrite Neg (Negative) 10/01/17 05:43 Urine Bilirubin Neg (Negative) 10/01/17 05:43 Urine Urobilinogen < 2.0 mg/dL (<2.0) 10/01/17 05:43 Ur Leukocyte Esterase Neg (Negative) 10/01/17 05:43 Urine WBC (Auto) 1.0 /HPF (0.0-6.0) 10/01/17 05:43 Urine RBC (Auto) 3.0 /HPF (0.0-6.0) 10/01/17 05:43 U Epithel Cells (Auto) 1.0 /HPF (0-13.0) 10/01/17 05:43 Urine Mucus Few /HPF 10/01/17 05:43 CSF Appearance Cloudy 10/10/17 Unknown CSF Color White 10/10/17 Unknown CSF WBC 42 /mm3 (1-10) 10/10/17 Unknown CSF RBC 1 /mm3 (0-0) 10/10/17 Unknown CSF Seg Neutrophils Not Reportable 10/10/17 Unknown CSF Lymphocytes % Not Reportable 10/10/17 Unknown CSF Reactive Lymphs Not Reportable 10/10/17 Unknown CSF Monocytes % Not Reportable 10/10/17 Unknown CSF Eosinophils % Not Reportable 10/10/17 Unknown CSF Basophils Not Reportable 10/10/17 Unknown CSF Pathologist Review C 10/10/17 Unknown CSF Glucose 148 mg/dL 10/10/17 Unknown CSF Total Protein 55 mg/dL 10/10/17 Unknown Urine Opiates Screen Presumptive negative 10/01/17 05:43 Urine Methadone Screen Presumptive negative 10/01/17 05:43 Ur Barbiturates Screen Presumptive negative 10/01/17 05:43 Ur Phencyclidine Scrn Presumptive negative 10/01/17 05:43 Ur Amphetamines Screen Presumptive negative 10/01/17 05:43 U Benzodiazepines Scrn Presumptive negative 10/01/17 05:43 Urine Cocaine Screen Presumptive negative 10/01/17 05:43 U Marijuana (THC) Screen Presumptive positive 10/01/17 05:43 Drugs of Abuse Note Disclamer 10/01/17 05:43 Miscellaneous Test Flexitest 1 H 10/10/17 Unknown
[2017-10-22 14:48] LABS: Hematocrit 42.1 % (35.5-45.6); Hemoglobin 14.6 gm/dl (11.8-15.2); Mean Corpuscular HGB Conc 35 % (32-34); Mean Corpuscular Hemoglobin 32 pg (28-32); Mean Corpuscular Volume 92 fl (84-94); Platelet Count 234 K/mm3 (140-440); Red Blood Count 4.59 M/mm3 (3.65-5.03); Red Cell Distribution Width 13.2 % (13.2-15.2)
[2017-10-22 14:56] LABS: BUN/Creatinine Ratio 18; Blood Urea Nitrogen 11 mg/dL (9-20); Calcium 8.7 mg/dL (8.4-10.2); Hemolysis Index 17
--- NOTE | 2017-10-23 09:22 | Progress Note ---
Assessment and Plan Assessment and plan: --Acute CVA with right-sided hemiparesis, appears to be ischemic stroke right lateral ellen and medullary Continue aspirin and statin, neuro checks, Physical therapy occupational therapy, neurology following CSF has slight increase in protein but not suggestive of vasculitis--the WBC c/ w ischemic stroke Possible acute subacute/ rehabilitation when clinically stable --Bilateral lower extremity weakness MRI lumbar spine, thoracic spine findings reviewed, Follow PT and OT evaluation and recommendations May need acute rehabilitation, --Type 2 diabetes mellitus; Accu-Chek sliding scale coverage and ADA diet. A1c 6.7, elevated blood sugars probably secondary to Solu-Medrol. Cont to taper steroids. --Leukocytosis. Etiology likely secondary to Solu-Medrol, now on Prednisone, continue to taper. No evidence of infection Hyponatremia. --Ongoing tobacco use; Smoking cessation counseling and nicotine patch as needed --DVT prophylaxis; Lovenox Physical therapy occupational therapy, rehabilitation Closely monitor the patient and adjust management as needed Full code status Medically stable for discharge. Awaiting wheel chair and family education. History Interval history: Right sided weakness, Bilateral lower ext weakness, No new complaints Hospitalist Physical - Physical exam Narrative exam: Gen:Not in acute distress, lying in bed HEENT:Normocephalic atraumatic Neck: Supple, no JVD Lungs:clear to auscultation bilaterally, no rhonchi, no wheeze Heart:S1 and S2 reg, no murmurs, rubs or gallop Abd: Soft, non tender, non distended, normal bowel sounds Ext: No edema, clubbing or cyanosis Neuro:Awake,alert,oriented x 3,right sided weakness, bilat lower ext weakness - Constitutional Vitals: Temp Pulse Resp BP Pulse Ox 99.3 F 84 20 105/65 93 10/23/17 04:36 10/23/17 04:36 10/23/17 04:36 10/23/17 04:36 10/23/17 04:36 General appearance: Present: no acute distress Results - Labs CBC & Chem 7: 10/22/17 14:00 10/22/17 14:00 Labs: Laboratory Last Values WBC 16.4 K/mm3 (4.5-11.0) H 10/22/17 14:00 RBC 4.59 M/mm3 (3.65-5.03) 10/22/17 14:00 Hgb 14.6 gm/dl (11.8-15.2) 10/22/17 14:00 Hct 42.1 % (35.5-45.6) 10/22/17 14:00 MCV 92 fl (84-94) 10/22/17 14:00 MCH 32 pg (28-32) 10/22/17 14:00 MCHC 35 % (32-34) H 10/22/17 14:00 RDW 13.2 % (13.2-15.2) 10/22/17 14:00 Plt Count 234 K/mm3 (140-440) 10/22/17 14:00 Lymph % (Auto) 17.5 % (13.4-35.0) 10/04/17 04:33 [place] % (Auto) 10.0 % (0.0-7.3) H 10/04/17 04:33 Eos % (Auto) 0.8 % (0.0-4.3) 10/04/17 04:33 Baso % (Auto) 0.4 % (0.0-1.8) 10/04/17 04:33 Lymph # 1.4 K/mm3 (1.2-5.4) 10/04/17 04:33 [place] # 0.8 K/mm3 (0.0-0.8) 10/04/17 04:33 Eos # 0.1 K/mm3 (0.0-0.4) 10/04/17 04:33 Baso # 0.0 K/mm3 (0.0-0.1) 10/04/17 04:33 Add Manual Diff Complete 10/16/17 06:47 Total Counted 100 10/16/17 06:47 Seg Neutrophils % Director Of Digital Technology 10/16/17 06:47 Seg Neuts % (Manual) 87.0 % (40.0-70.0) H 10/16/17 06:47 Band Neutrophils % 0 % 10/16/17 06:47 Lymphocytes % (Manual) 5.0 % (13.4-35.0) L 10/16/17 06:47 Reactive Lymphs % (Man) 1.0 % 10/16/17 06:47 Monocytes % (Manual) 6.0 % (0.0-7.3) 10/16/17 06:47 Eosinophils % (Manual) 0 % (0.0-4.3) 10/16/17 06:47 Basophils % (Manual) 0 % (0.0-1.8) 10/16/17 06:47 Metamyelocytes % 1.0 % 10/16/17 06:47 Myelocytes % 0 % 10/16/17 06:47 Promyelocytes % 0 % 10/16/17 06:47 Blast Cells % 0 % 10/16/17 06:47 Nucleated RBC % Not Reportable 10/16/17 06:47 Seg Neutrophils # 5.7 K/mm3 (1.8-7.7) 10/04/17 04:33 Seg Neutrophils # Man 17.8 K/mm3 (1.8-7.7) H 10/16/17 06:47 Band Neutrophils # 0.0 K/mm3 10/16/17 06:47 Lymphocytes # (Manual) 1.0 K/mm3 (1.2-5.4) L 10/16/17 06:47 Abs React Lymphs (Man) 0.2 K/mm3 10/16/17 06:47 Monocytes # (Manual) 1.2 K/mm3 (0.0-0.8) H 10/16/17 06:47 Eosinophils # (Manual) 0.0 K/mm3 (0.0-0.4) 10/16/17 06:47 Basophils # (Manual) 0.0 K/mm3 (0.0-0.1) 10/16/17 06:47 Metamyelocytes # 0.2 K/mm3 10/16/17 06:47 Myelocytes # 0.0 K/mm3 10/16/17 06:47 Promyelocytes # 0.0 K/mm3 10/16/17 06:47 Blast Cells # 0.0 K/mm3 10/16/17 06:47 WBC Morphology Not Reportable 10/16/17 06:47 Hypersegmented Neuts Not Reportable 10/16/17 06:47 Hyposegmented Neuts Not Reportable 10/16/17 06:47 Hypogranular Neuts Not Reportable 10/16/17 06:47 Smudge Cells Not Reportable 10/16/17 06:47 Toxic Granulation Not Reportable 10/16/17 06:47 Toxic Vacuolation Not Reportable 10/16/17 06:47 Dohle Bodies Not Reportable 10/16/17 06:47 Pelger-Huet Anomaly Not Reportable 10/16/17 06:47 Eh Rods Not Reportable 10/16/17 06:47 Platelet Estimate Consistent w auto 10/16/17 06:47 Clumped Platelets Not Reportable 10/16/17 06:47 Plt Clumps, EDTA Not Reportable 10/16/17 06:47 Large Platelets Not Reportable 10/16/17 06:47 Giant Platelets Not Reportable 10/16/17 06:47 Platelet Satelliting Not Reportable 10/16/17 06:47 Plt Morphology Comment Not Reportable 10/16/17 06:47 RBC Morphology Not Reportable 10/16/17 06:47 Dimorphic RBCs Not Reportable 10/16/17 06:47 Polychromasia Not Reportable 10/16/17 06:47 Hypochromasia Not Reportable 10/16/17 06:47 Poikilocytosis Not Reportable 10/16/17 06:47 Anisocytosis Not Reportable 10/16/17 06:47 Microcytosis Not Reportable 10/16/17 06:47 Macrocytosis Not Reportable 10/16/17 06:47 Spherocytes Not Reportable 10/16/17 06:47 Pappenheimer Bodies Not Reportable 10/16/17 06:47 Sickle Cells Not Reportable 10/16/17 06:47 Target Cells Not Reportable 10/16/17 06:47 Tear Drop Cells Not Reportable 10/16/17 06:47 Ovalocytes Not Reportable 10/16/17 06:47 Helmet Cells Not Reportable 10/16/17 06:47 Valle-[place] Bodies Not Reportable 10/16/17 06:47 [place] Rings Not Reportable 10/16/17 06:47 Jalyn Cells Not Reportable 10/16/17 06:47 Bite Cells Not Reportable 10/16/17 06:47 Crenated Cell Not Reportable 10/16/17 06:47 Elliptocytes Not Reportable 10/16/17 06:47 Acanthocytes (Spur) Not Reportable 10/16/17 06:47 Rouleaux Not Reportable 10/16/17 06:47 Hemoglobin C Crystals Not Reportable 10/16/17 06:47 Schistocytes Not Reportable 10/16/17 06:47 Malaria parasites Not Reportable 10/16/17 06:47 [place] Bodies Not Reportable 10/16/17 06:47 Hem Pathologist Commnt No 10/16/17 06:47 PT 13.2 Sec. (12.2-14.9) 10/07/17 14:47 INR 0.95 (0.87-1.13) 10/07/17 14:47 APTT 26.0 Sec. (24.2-36.6) 10/01/17 00:58 Thrombin Time 17.0 Sec. (15.1-19.6) 10/01/17 00:58 Sodium 133 mmol/L (137-145) L 10/22/17 14:00 Potassium 4.3 mmol/L (3.6-5.0) 10/22/17 14:00 Chloride 95.0 mmol/L (98-107) L 10/22/17 14:00 Carbon Dioxide 24 mmol/L (22-30) 10/22/17 14:00 Anion Gap 18 mmol/L 10/22/17 14:00 BUN 11 mg/dL (9-20) 10/22/17 14:00 Creatinine 0.6 mg/dL (0.8-1.5) L 10/22/17 14:00 Estimated GFR > 60 ml/min 10/22/17 14:00 BUN/Creatinine Ratio 18 % 10/22/17 14:00 Glucose 247 mg/dL (75-100) H 10/22/17 14:00 POC Glucose 122 (70-105) H 10/23/17 07:05 Hemoglobin A1c 6.7 % (4-6) H 10/02/17 05:02 Calcium 8.7 mg/dL (8.4-10.2) 10/22/17 14:00 Phosphorus 3.60 mg/dL (2.5-4.5) 10/10/17 04:53 Magnesium 1.90 mg/dL (1.7-2.3) 10/10/17 04:53 Total Bilirubin 0.20 mg/dL (0.1-1.2) 10/10/17 04:53 AST 50 units/L (5-40) H 10/10/17 04:53 ALT 104 units/L (7-56) H 10/10/17 04:53 Alkaline Phosphatase 79 units/L (35-129) 10/10/17 04:53 Troponin T < 0.010 ng/mL (0.00-0.029) 10/01/17 00:58 C-Reactive Protein 0.00 mg/dL (0.00-1.30) 10/10/17 21:18 Total Protein 6.3 g/dL (6.3-8.2) 10/10/17 04:53 Albumin 3.3 g/dL (3.9-5) L 10/10/17 04:53 Albumin/Globulin Ratio 1.1 % 10/10/17 04:53 Triglycerides 128 mg/dL (2-149) 10/02/17 05:02 Cholesterol 130 mg/dL (50-199) 10/02/17 05:02 LDL Cholesterol Direct 78 mg/dL (50-130) 10/02/17 05:02 HDL Cholesterol 31 mg/dL (40-59) L 10/02/17 05:02 Cholesterol/HDL Ratio 4.19 % 10/02/17 05:02 Vitamin B12 641.8 pg/mL (211-911) 10/01/17 20:04 RBC Folic Acid 522 ng/mL (>280) 10/01/17 20:04 TSH 1.050 mlU/mL (0.270-4.200) 10/01/17 20:04 Urine Color Yellow (Yellow) 10/01/17 05:43 Urine Turbidity Clear (Clear) 10/01/17 05:43 Urine pH 5.0 (5.0-7.0) 10/01/17 05:43 Ur Specific [place] 1.024 (1.003-1.030) 10/01/17 05:43 Urine Protein <15 mg/dl mg/dL (Negative) 10/01/17 05:43 Urine Glucose (UA) Neg mg/dL (Negative) 10/01/17 05:43 Urine Ketones Neg mg/dL (Negative) 10/01/17 05:43 Urine Blood Neg (Negative) 10/01/17 05:43 Urine Nitrite Neg (Negative) 10/01/17 05:43 Urine Bilirubin Neg (Negative) 10/01/17 05:43 Urine Urobilinogen < 2.0 mg/dL (<2.0) 10/01/17 05:43 Ur Leukocyte Esterase Neg (Negative) 10/01/17 05:43 Urine WBC (Auto) 1.0 /HPF (0.0-6.0) 10/01/17 05:43 Urine RBC (Auto) 3.0 /HPF (0.0-6.0) 10/01/17 05:43 U Epithel Cells (Auto) 1.0 /HPF (0-13.0) 10/01/17 05:43 Urine Mucus Few /HPF 10/01/17 05:43 CSF Appearance Cloudy 10/10/17 Unknown CSF Color White 10/10/17 Unknown CSF WBC 42 /mm3 (1-10) 10/10/17 Unknown CSF RBC 1 /mm3 (0-0) 10/10/17 Unknown CSF Seg Neutrophils Not Reportable 10/10/17 Unknown CSF Lymphocytes % Not Reportable 10/10/17 Unknown CSF Reactive Lymphs Not Reportable 10/10/17 Unknown CSF Monocytes % Not Reportable 10/10/17 Unknown CSF Eosinophils % Not Reportable 10/10/17 Unknown CSF Basophils Not Reportable 10/10/17 Unknown CSF Pathologist Review C 10/10/17 Unknown CSF Glucose 148 mg/dL 10/10/17 Unknown CSF Total Protein 55 mg/dL 10/10/17 Unknown Urine Opiates Screen Presumptive negative 10/01/17 05:43 Urine Methadone Screen Presumptive negative 10/01/17 05:43 Ur Barbiturates Screen Presumptive negative 10/01/17 05:43 Ur Phencyclidine Scrn Presumptive negative 10/01/17 05:43 Ur Amphetamines Screen Presumptive negative 10/01/17 05:43 U Benzodiazepines Scrn Presumptive negative 10/01/17 05:43 Urine Cocaine Screen Presumptive negative 10/01/17 05:43 U Marijuana (THC) Screen Presumptive positive 10/01/17 05:43 Drugs of Abuse Note Disclamer 10/01/17 05:43 Miscellaneous Test Flexitest 1 H 10/10/17 Unknown
[2017-10-23] MEDS: TENORMIN PO SCH (09:29)
[2017-10-23] MEDS: GLUCOTROL PO SCH ×2 (09:30→17:20)
[2017-10-23] MEDS: LOVENOX SUB-Q SCH (09:30)
[2017-10-23] MEDS: GLUCOPHAGE PO SCH ×2 (09:30→17:20)
[2017-10-23] MEDS: DELTASONE PO SCH (09:30)
[2017-10-23] MEDS: HumaLOG SUB-Q SCH ×4 (10:58→22:36)
[2017-10-24] MEDS: HumaLOG SUB-Q SCH ×4 (08:06→23:03)
[2017-10-24] MEDS: DELTASONE PO SCH (09:42)
[2017-10-24] MEDS: TENORMIN PO SCH (09:43)
[2017-10-24] MEDS: LOVENOX SUB-Q SCH (09:43)
[2017-10-24] MEDS: GLUCOTROL PO SCH ×2 (09:43→17:45)
[2017-10-24] MEDS: GLUCOPHAGE PO SCH ×2 (09:43→17:45)
--- NOTE | 2017-10-24 11:41 | Progress Note ---
Assessment and Plan Assessment and plan: --Acute CVA with right-sided hemiparesis, appears to be ischemic stroke right lateral ellen and medullary Continue aspirin and statin, neuro checks, Physical therapy occupational therapy, neurology following CSF has slight increase in protein but not suggestive of vasculitis--the WBC c/ w ischemic stroke Possible acute subacute/ rehabilitation when clinically stable --Bilateral lower extremity weakness MRI lumbar spine, thoracic spine findings reviewed, Follow PT and OT evaluation and recommendations May need acute rehabilitation, --Type 2 diabetes mellitus; Accu-Chek sliding scale coverage and ADA diet. A1c 6.7, elevated blood sugars probably secondary to Solu-Medrol. Cont to taper steroids. --Leukocytosis. Etiology likely secondary to Solu-Medrol, now on Prednisone, continue to taper. No evidence of infection Hyponatremia. --Ongoing tobacco use; Smoking cessation counseling and nicotine patch as needed --DVT prophylaxis; Lovenox Physical therapy occupational therapy, rehabilitation Closely monitor the patient and adjust management as needed Full code status Medically stable for discharge. Awaiting wheel chair and family education. History Interval history: Right sided weakness, Bilateral lower ext weakness, No new complaints Hospitalist Physical - Physical exam Narrative exam: Gen:Not in acute distress, lying in bed HEENT:Normocephalic atraumatic Neck: Supple, no JVD Lungs:clear to auscultation bilaterally, no rhonchi, no wheeze Heart:S1 and S2 reg, no murmurs, rubs or gallop Abd: Soft, non tender, non distended, normal bowel sounds Ext: No edema, clubbing or cyanosis Neuro:Awake,alert,oriented x 3,right sided weakness, bilat lower ext weakness - Constitutional Vitals: Temp Pulse Resp BP Pulse Ox 98.4 F 88 18 114/80 96 10/24/17 07:16 10/24/17 07:16 10/24/17 07:16 10/24/17 07:16 10/24/17 07:16 General appearance: Present: no acute distress Results - Labs CBC & Chem 7: 10/22/17 14:00 10/22/17 14:00 Labs: Laboratory Last Values WBC 16.4 K/mm3 (4.5-11.0) H 10/22/17 14:00 RBC 4.59 M/mm3 (3.65-5.03) 10/22/17 14:00 Hgb 14.6 gm/dl (11.8-15.2) 10/22/17 14:00 Hct 42.1 % (35.5-45.6) 10/22/17 14:00 MCV 92 fl (84-94) 10/22/17 14:00 MCH 32 pg (28-32) 10/22/17 14:00 MCHC 35 % (32-34) H 10/22/17 14:00 RDW 13.2 % (13.2-15.2) 10/22/17 14:00 Plt Count 234 K/mm3 (140-440) 10/22/17 14:00 Lymph % (Auto) 17.5 % (13.4-35.0) 10/04/17 04:33 [place] % (Auto) 10.0 % (0.0-7.3) H 10/04/17 04:33 Eos % (Auto) 0.8 % (0.0-4.3) 10/04/17 04:33 Baso % (Auto) 0.4 % (0.0-1.8) 10/04/17 04:33 Lymph # 1.4 K/mm3 (1.2-5.4) 10/04/17 04:33 [place] # 0.8 K/mm3 (0.0-0.8) 10/04/17 04:33 Eos # 0.1 K/mm3 (0.0-0.4) 10/04/17 04:33 Baso # 0.0 K/mm3 (0.0-0.1) 10/04/17 04:33 Add Manual Diff Complete 10/16/17 06:47 Total Counted 100 10/16/17 06:47 Seg Neutrophils % Shove Up 10/16/17 06:47 Seg Neuts % (Manual) 87.0 % (40.0-70.0) H 10/16/17 06:47 Band Neutrophils % 0 % 10/16/17 06:47 Lymphocytes % (Manual) 5.0 % (13.4-35.0) L 10/16/17 06:47 Reactive Lymphs % (Man) 1.0 % 10/16/17 06:47 Monocytes % (Manual) 6.0 % (0.0-7.3) 10/16/17 06:47 Eosinophils % (Manual) 0 % (0.0-4.3) 10/16/17 06:47 Basophils % (Manual) 0 % (0.0-1.8) 10/16/17 06:47 Metamyelocytes % 1.0 % 10/16/17 06:47 Myelocytes % 0 % 10/16/17 06:47 Promyelocytes % 0 % 10/16/17 06:47 Blast Cells % 0 % 10/16/17 06:47 Nucleated RBC % Not Reportable 10/16/17 06:47 Seg Neutrophils # 5.7 K/mm3 (1.8-7.7) 10/04/17 04:33 Seg Neutrophils # Man 17.8 K/mm3 (1.8-7.7) H 10/16/17 06:47 Band Neutrophils # 0.0 K/mm3 10/16/17 06:47 Lymphocytes # (Manual) 1.0 K/mm3 (1.2-5.4) L 10/16/17 06:47 Abs React Lymphs (Man) 0.2 K/mm3 10/16/17 06:47 Monocytes # (Manual) 1.2 K/mm3 (0.0-0.8) H 10/16/17 06:47 Eosinophils # (Manual) 0.0 K/mm3 (0.0-0.4) 10/16/17 06:47 Basophils # (Manual) 0.0 K/mm3 (0.0-0.1) 10/16/17 06:47 Metamyelocytes # 0.2 K/mm3 10/16/17 06:47 Myelocytes # 0.0 K/mm3 10/16/17 06:47 Promyelocytes # 0.0 K/mm3 10/16/17 06:47 Blast Cells # 0.0 K/mm3 10/16/17 06:47 WBC Morphology Not Reportable 10/16/17 06:47 Hypersegmented Neuts Not Reportable 10/16/17 06:47 Hyposegmented Neuts Not Reportable 10/16/17 06:47 Hypogranular Neuts Not Reportable 10/16/17 06:47 Smudge Cells Not Reportable 10/16/17 06:47 Toxic Granulation Not Reportable 10/16/17 06:47 Toxic Vacuolation Not Reportable 10/16/17 06:47 Dohle Bodies Not Reportable 10/16/17 06:47 Pelger-Huet Anomaly Not Reportable 10/16/17 06:47 Eh Rods Not Reportable 10/16/17 06:47 Platelet Estimate Consistent w auto 10/16/17 06:47 Clumped Platelets Not Reportable 10/16/17 06:47 Plt Clumps, EDTA Not Reportable 10/16/17 06:47 Large Platelets Not Reportable 10/16/17 06:47 Giant Platelets Not Reportable 10/16/17 06:47 Platelet Satelliting Not Reportable 10/16/17 06:47 Plt Morphology Comment Not Reportable 10/16/17 06:47 RBC Morphology Not Reportable 10/16/17 06:47 Dimorphic RBCs Not Reportable 10/16/17 06:47 Polychromasia Not Reportable 10/16/17 06:47 Hypochromasia Not Reportable 10/16/17 06:47 Poikilocytosis Not Reportable 10/16/17 06:47 Anisocytosis Not Reportable 10/16/17 06:47 Microcytosis Not Reportable 10/16/17 06:47 Macrocytosis Not Reportable 10/16/17 06:47 Spherocytes Not Reportable 10/16/17 06:47 Pappenheimer Bodies Not Reportable 10/16/17 06:47 Sickle Cells Not Reportable 10/16/17 06:47 Target Cells Not Reportable 10/16/17 06:47 Tear Drop Cells Not Reportable 10/16/17 06:47 Ovalocytes Not Reportable 10/16/17 06:47 Helmet Cells Not Reportable 10/16/17 06:47 Valle-[place] Bodies Not Reportable 10/16/17 06:47 [place] Rings Not Reportable 10/16/17 06:47 Jalyn Cells Not Reportable 10/16/17 06:47 Bite Cells Not Reportable 10/16/17 06:47 Crenated Cell Not Reportable 10/16/17 06:47 Elliptocytes Not Reportable 10/16/17 06:47 Acanthocytes (Spur) Not Reportable 10/16/17 06:47 Rouleaux Not Reportable 10/16/17 06:47 Hemoglobin C Crystals Not Reportable 10/16/17 06:47 Schistocytes Not Reportable 10/16/17 06:47 Malaria parasites Not Reportable 10/16/17 06:47 [place] Bodies Not Reportable 10/16/17 06:47 Hem Pathologist Commnt No 10/16/17 06:47 PT 13.2 Sec. (12.2-14.9) 10/07/17 14:47 INR 0.95 (0.87-1.13) 10/07/17 14:47 APTT 26.0 Sec. (24.2-36.6) 10/01/17 00:58 Thrombin Time 17.0 Sec. (15.1-19.6) 10/01/17 00:58 Sodium 133 mmol/L (137-145) L 10/22/17 14:00 Potassium 4.3 mmol/L (3.6-5.0) 10/22/17 14:00 Chloride 95.0 mmol/L (98-107) L 10/22/17 14:00 Carbon Dioxide 24 mmol/L (22-30) 10/22/17 14:00 Anion Gap 18 mmol/L 10/22/17 14:00 BUN 11 mg/dL (9-20) 10/22/17 14:00 Creatinine 0.6 mg/dL (0.8-1.5) L 10/22/17 14:00 Estimated GFR > 60 ml/min 10/22/17 14:00 BUN/Creatinine Ratio 18 % 10/22/17 14:00 Glucose 247 mg/dL (75-100) H 10/22/17 14:00 POC Glucose 84 (70-105) 10/24/17 06:48 Hemoglobin A1c 6.7 % (4-6) H 10/02/17 05:02 Calcium 8.7 mg/dL (8.4-10.2) 10/22/17 14:00 Phosphorus 3.60 mg/dL (2.5-4.5) 10/10/17 04:53 Magnesium 1.90 mg/dL (1.7-2.3) 10/10/17 04:53 Total Bilirubin 0.20 mg/dL (0.1-1.2) 10/10/17 04:53 AST 50 units/L (5-40) H 10/10/17 04:53 ALT 104 units/L (7-56) H 10/10/17 04:53 Alkaline Phosphatase 79 units/L (35-129) 10/10/17 04:53 Troponin T < 0.010 ng/mL (0.00-0.029) 10/01/17 00:58 C-Reactive Protein 0.00 mg/dL (0.00-1.30) 10/10/17 21:18 Total Protein 6.3 g/dL (6.3-8.2) 10/10/17 04:53 Albumin 3.3 g/dL (3.9-5) L 10/10/17 04:53 Albumin/Globulin Ratio 1.1 % 10/10/17 04:53 Triglycerides 128 mg/dL (2-149) 10/02/17 05:02 Cholesterol 130 mg/dL (50-199) 10/02/17 05:02 LDL Cholesterol Direct 78 mg/dL (50-130) 10/02/17 05:02 HDL Cholesterol 31 mg/dL (40-59) L 10/02/17 05:02 Cholesterol/HDL Ratio 4.19 % 10/02/17 05:02 Vitamin B12 641.8 pg/mL (211-911) 10/01/17 20:04 RBC Folic Acid 522 ng/mL (>280) 10/01/17 20:04 TSH 1.050 mlU/mL (0.270-4.200) 10/01/17 20:04 Urine Color Yellow (Yellow) 10/01/17 05:43 Urine Turbidity Clear (Clear) 10/01/17 05:43 Urine pH 5.0 (5.0-7.0) 10/01/17 05:43 Ur Specific [place] 1.024 (1.003-1.030) 10/01/17 05:43 Urine Protein <15 mg/dl mg/dL (Negative) 10/01/17 05:43 Urine Glucose (UA) Neg mg/dL (Negative) 10/01/17 05:43 Urine Ketones Neg mg/dL (Negative) 10/01/17 05:43 Urine Blood Neg (Negative) 10/01/17 05:43 Urine Nitrite Neg (Negative) 10/01/17 05:43 Urine Bilirubin Neg (Negative) 10/01/17 05:43 Urine Urobilinogen < 2.0 mg/dL (<2.0) 10/01/17 05:43 Ur Leukocyte Esterase Neg (Negative) 10/01/17 05:43 Urine WBC (Auto) 1.0 /HPF (0.0-6.0) 10/01/17 05:43 Urine RBC (Auto) 3.0 /HPF (0.0-6.0) 10/01/17 05:43 U Epithel Cells (Auto) 1.0 /HPF (0-13.0) 10/01/17 05:43 Urine Mucus Few /HPF 10/01/17 05:43 CSF Appearance Cloudy 10/10/17 Unknown CSF Color White 10/10/17 Unknown CSF WBC 42 /mm3 (1-10) 10/10/17 Unknown CSF RBC 1 /mm3 (0-0) 10/10/17 Unknown CSF Seg Neutrophils Not Reportable 10/10/17 Unknown CSF Lymphocytes % Not Reportable 10/10/17 Unknown CSF Reactive Lymphs Not Reportable 10/10/17 Unknown CSF Monocytes % Not Reportable 10/10/17 Unknown CSF Eosinophils % Not Reportable 10/10/17 Unknown CSF Basophils Not Reportable 10/10/17 Unknown CSF Pathologist Review C 10/10/17 Unknown CSF Glucose 148 mg/dL 10/10/17 Unknown CSF Total Protein 55 mg/dL 10/10/17 Unknown Urine Opiates Screen Presumptive negative 10/01/17 05:43 Urine Methadone Screen Presumptive negative 10/01/17 05:43 Ur Barbiturates Screen Presumptive negative 10/01/17 05:43 Ur Phencyclidine Scrn Presumptive negative 10/01/17 05:43 Ur Amphetamines Screen Presumptive negative 10/01/17 05:43 U Benzodiazepines Scrn Presumptive negative 10/01/17 05:43 Urine Cocaine Screen Presumptive negative 10/01/17 05:43 U Marijuana (THC) Screen Presumptive positive 10/01/17 05:43 Drugs of Abuse Note Disclamer 10/01/17 05:43 Miscellaneous Test Flexitest 1 H 10/10/17 Unknown
[2017-10-25] MEDS: HumaLOG SUB-Q SCH ×3 (07:30→16:30)
--- NOTE | 2017-10-25 08:21 | Progress Note ---
Assessment and Plan Assessment and plan: --Acute CVA with right-sided hemiparesis, appears to be ischemic stroke right lateral ellen and medullary Continue aspirin and statin, neuro checks, Physical therapy occupational therapy, neurology following CSF has slight increase in protein but not suggestive of vasculitis--the WBC c/ w ischemic stroke Possible acute subacute/ rehabilitation when clinically stable --Bilateral lower extremity weakness MRI lumbar spine, thoracic spine findings reviewed, Follow PT and OT evaluation and recommendations May need acute rehabilitation, --Type 2 diabetes mellitus; Accu-Chek sliding scale coverage and ADA diet. A1c 6.7, elevated blood sugars probably secondary to Solu-Medrol. Cont to taper steroids. --Leukocytosis. Etiology likely secondary to Solu-Medrol, now on Prednisone, continue to taper. No evidence of infection Hyponatremia. --Ongoing tobacco use; Smoking cessation counseling and nicotine patch as needed --DVT prophylaxis; Lovenox Physical therapy occupational therapy, rehabilitation Closely monitor the patient and adjust management as needed Full code status Medically stable for discharge. Awaiting wheel chair and family education. Hospitalist Physical - Constitutional Vitals: Temp Pulse Resp BP Pulse Ox 97.8 F 81 20 113/80 94 10/25/17 00:45 10/25/17 00:45 10/25/17 00:45 10/25/17 00:45 10/25/17 00:45 General appearance: Present: no acute distress Results - Labs CBC & Chem 7: 10/22/17 14:00 10/22/17 14:00 Labs: Laboratory Last Values WBC 16.4 K/mm3 (4.5-11.0) H 10/22/17 14:00 RBC 4.59 M/mm3 (3.65-5.03) 10/22/17 14:00 Hgb 14.6 gm/dl (11.8-15.2) 10/22/17 14:00 Hct 42.1 % (35.5-45.6) 10/22/17 14:00 MCV 92 fl (84-94) 10/22/17 14:00 MCH 32 pg (28-32) 10/22/17 14:00 MCHC 35 % (32-34) H 10/22/17 14:00 RDW 13.2 % (13.2-15.2) 10/22/17 14:00 Plt Count 234 K/mm3 (140-440) 10/22/17 14:00 Lymph % (Auto) 17.5 % (13.4-35.0) 10/04/17 04:33 [place] % (Auto) 10.0 % (0.0-7.3) H 10/04/17 04:33 Eos % (Auto) 0.8 % (0.0-4.3) 10/04/17 04:33 Baso % (Auto) 0.4 % (0.0-1.8) 10/04/17 04:33 Lymph # 1.4 K/mm3 (1.2-5.4) 10/04/17 04:33 [place] # 0.8 K/mm3 (0.0-0.8) 10/04/17 04:33 Eos # 0.1 K/mm3 (0.0-0.4) 10/04/17 04:33 Baso # 0.0 K/mm3 (0.0-0.1) 10/04/17 04:33 Add Manual Diff Complete 10/16/17 06:47 Total Counted 100 10/16/17 06:47 Seg Neutrophils % Junior Systems Administrator 10/16/17 06:47 Seg Neuts % (Manual) 87.0 % (40.0-70.0) H 10/16/17 06:47 Band Neutrophils % 0 % 10/16/17 06:47 Lymphocytes % (Manual) 5.0 % (13.4-35.0) L 10/16/17 06:47 Reactive Lymphs % (Man) 1.0 % 10/16/17 06:47 Monocytes % (Manual) 6.0 % (0.0-7.3) 10/16/17 06:47 Eosinophils % (Manual) 0 % (0.0-4.3) 10/16/17 06:47 Basophils % (Manual) 0 % (0.0-1.8) 10/16/17 06:47 Metamyelocytes % 1.0 % 10/16/17 06:47 Myelocytes % 0 % 10/16/17 06:47 Promyelocytes % 0 % 10/16/17 06:47 Blast Cells % 0 % 10/16/17 06:47 Nucleated RBC % Not Reportable 10/16/17 06:47 Seg Neutrophils # 5.7 K/mm3 (1.8-7.7) 10/04/17 04:33 Seg Neutrophils # Man 17.8 K/mm3 (1.8-7.7) H 10/16/17 06:47 Band Neutrophils # 0.0 K/mm3 10/16/17 06:47 Lymphocytes # (Manual) 1.0 K/mm3 (1.2-5.4) L 10/16/17 06:47 Abs React Lymphs (Man) 0.2 K/mm3 10/16/17 06:47 Monocytes # (Manual) 1.2 K/mm3 (0.0-0.8) H 10/16/17 06:47 Eosinophils # (Manual) 0.0 K/mm3 (0.0-0.4) 10/16/17 06:47 Basophils # (Manual) 0.0 K/mm3 (0.0-0.1) 10/16/17 06:47 Metamyelocytes # 0.2 K/mm3 10/16/17 06:47 Myelocytes # 0.0 K/mm3 10/16/17 06:47 Promyelocytes # 0.0 K/mm3 10/16/17 06:47 Blast Cells # 0.0 K/mm3 10/16/17 06:47 WBC Morphology Not Reportable 10/16/17 06:47 Hypersegmented Neuts Not Reportable 10/16/17 06:47 Hyposegmented Neuts Not Reportable 10/16/17 06:47 Hypogranular Neuts Not Reportable 10/16/17 06:47 Smudge Cells Not Reportable 10/16/17 06:47 Toxic Granulation Not Reportable 10/16/17 06:47 Toxic Vacuolation Not Reportable 10/16/17 06:47 Dohle Bodies Not Reportable 10/16/17 06:47 Pelger-Huet Anomaly Not Reportable 10/16/17 06:47 Eh Rods Not Reportable 10/16/17 06:47 Platelet Estimate Consistent w auto 10/16/17 06:47 Clumped Platelets Not Reportable 10/16/17 06:47 Plt Clumps, EDTA Not Reportable 10/16/17 06:47 Large Platelets Not Reportable 10/16/17 06:47 Giant Platelets Not Reportable 10/16/17 06:47 Platelet Satelliting Not Reportable 10/16/17 06:47 Plt Morphology Comment Not Reportable 10/16/17 06:47 RBC Morphology Not Reportable 10/16/17 06:47 Dimorphic RBCs Not Reportable 10/16/17 06:47 Polychromasia Not Reportable 10/16/17 06:47 Hypochromasia Not Reportable 10/16/17 06:47 Poikilocytosis Not Reportable 10/16/17 06:47 Anisocytosis Not Reportable 10/16/17 06:47 Microcytosis Not Reportable 10/16/17 06:47 Macrocytosis Not Reportable 10/16/17 06:47 Spherocytes Not Reportable 10/16/17 06:47 Pappenheimer Bodies Not Reportable 10/16/17 06:47 Sickle Cells Not Reportable 10/16/17 06:47 Target Cells Not Reportable 10/16/17 06:47 Tear Drop Cells Not Reportable 10/16/17 06:47 Ovalocytes Not Reportable 10/16/17 06:47 Helmet Cells Not Reportable 10/16/17 06:47 Valle-[place] Bodies Not Reportable 10/16/17 06:47 [place] Rings Not Reportable 10/16/17 06:47 Jalyn Cells Not Reportable 10/16/17 06:47 Bite Cells Not Reportable 10/16/17 06:47 Crenated Cell Not Reportable 10/16/17 06:47 Elliptocytes Not Reportable 10/16/17 06:47 Acanthocytes (Spur) Not Reportable 10/16/17 06:47 Rouleaux Not Reportable 10/16/17 06:47 Hemoglobin C Crystals Not Reportable 10/16/17 06:47 Schistocytes Not Reportable 10/16/17 06:47 Malaria parasites Not Reportable 10/16/17 06:47 [place] Bodies Not Reportable 10/16/17 06:47 Hem Pathologist Commnt No 10/16/17 06:47 PT 13.2 Sec. (12.2-14.9) 10/07/17 14:47 INR 0.95 (0.87-1.13) 10/07/17 14:47 APTT 26.0 Sec. (24.2-36.6) 10/01/17 00:58 Thrombin Time 17.0 Sec. (15.1-19.6) 10/01/17 00:58 Sodium 133 mmol/L (137-145) L 10/22/17 14:00 Potassium 4.3 mmol/L (3.6-5.0) 10/22/17 14:00 Chloride 95.0 mmol/L (98-107) L 10/22/17 14:00 Carbon Dioxide 24 mmol/L (22-30) 10/22/17 14:00 Anion Gap 18 mmol/L 10/22/17 14:00 BUN 11 mg/dL (9-20) 10/22/17 14:00 Creatinine 0.6 mg/dL (0.8-1.5) L 10/22/17 14:00 Estimated GFR > 60 ml/min 10/22/17 14:00 BUN/Creatinine Ratio 18 % 10/22/17 14:00 Glucose 247 mg/dL (75-100) H 10/22/17 14:00 POC Glucose 77 (70-105) 10/25/17 06:13 Hemoglobin A1c 6.7 % (4-6) H 10/02/17 05:02 Calcium 8.7 mg/dL (8.4-10.2) 10/22/17 14:00 Phosphorus 3.60 mg/dL (2.5-4.5) 10/10/17 04:53 Magnesium 1.90 mg/dL (1.7-2.3) 10/10/17 04:53 Total Bilirubin 0.20 mg/dL (0.1-1.2) 10/10/17 04:53 AST 50 units/L (5-40) H 10/10/17 04:53 ALT 104 units/L (7-56) H 10/10/17 04:53 Alkaline Phosphatase 79 units/L (35-129) 10/10/17 04:53 Troponin T < 0.010 ng/mL (0.00-0.029) 10/01/17 00:58 C-Reactive Protein 0.00 mg/dL (0.00-1.30) 10/10/17 21:18 Total Protein 6.3 g/dL (6.3-8.2) 10/10/17 04:53 Albumin 3.3 g/dL (3.9-5) L 10/10/17 04:53 Albumin/Globulin Ratio 1.1 % 10/10/17 04:53 Triglycerides 128 mg/dL (2-149) 10/02/17 05:02 Cholesterol 130 mg/dL (50-199) 10/02/17 05:02 LDL Cholesterol Direct 78 mg/dL (50-130) 10/02/17 05:02 HDL Cholesterol 31 mg/dL (40-59) L 10/02/17 05:02 Cholesterol/HDL Ratio 4.19 % 10/02/17 05:02 Vitamin B12 641.8 pg/mL (211-911) 10/01/17 20:04 RBC Folic Acid 522 ng/mL (>280) 10/01/17 20:04 TSH 1.050 mlU/mL (0.270-4.200) 10/01/17 20:04 Urine Color Yellow (Yellow) 10/01/17 05:43 Urine Turbidity Clear (Clear) 10/01/17 05:43 Urine pH 5.0 (5.0-7.0) 10/01/17 05:43 Ur Specific [place] 1.024 (1.003-1.030) 10/01/17 05:43 Urine Protein <15 mg/dl mg/dL (Negative) 10/01/17 05:43 Urine Glucose (UA) Neg mg/dL (Negative) 10/01/17 05:43 Urine Ketones Neg mg/dL (Negative) 10/01/17 05:43 Urine Blood Neg (Negative) 10/01/17 05:43 Urine Nitrite Neg (Negative) 10/01/17 05:43 Urine Bilirubin Neg (Negative) 10/01/17 05:43 Urine Urobilinogen < 2.0 mg/dL (<2.0) 10/01/17 05:43 Ur Leukocyte Esterase Neg (Negative) 10/01/17 05:43 Urine WBC (Auto) 1.0 /HPF (0.0-6.0) 10/01/17 05:43 Urine RBC (Auto) 3.0 /HPF (0.0-6.0) 10/01/17 05:43 U Epithel Cells (Auto) 1.0 /HPF (0-13.0) 10/01/17 05:43 Urine Mucus Few /HPF 10/01/17 05:43 CSF Appearance Cloudy 10/10/17 Unknown CSF Color White 10/10/17 Unknown CSF WBC 42 /mm3 (1-10) 10/10/17 Unknown CSF RBC 1 /mm3 (0-0) 10/10/17 Unknown CSF Seg Neutrophils Not Reportable 10/10/17 Unknown CSF Lymphocytes % Not Reportable 10/10/17 Unknown CSF Reactive Lymphs Not Reportable 10/10/17 Unknown CSF Monocytes % Not Reportable 10/10/17 Unknown CSF Eosinophils % Not Reportable 10/10/17 Unknown CSF Basophils Not Reportable 10/10/17 Unknown CSF Pathologist Review C 10/10/17 Unknown CSF Glucose 148 mg/dL 10/10/17 Unknown CSF Total Protein 55 mg/dL 10/10/17 Unknown Urine Opiates Screen Presumptive negative 10/01/17 05:43 Urine Methadone Screen Presumptive negative 10/01/17 05:43 Ur Barbiturates Screen Presumptive negative 10/01/17 05:43 Ur Phencyclidine Scrn Presumptive negative 10/01/17 05:43 Ur Amphetamines Screen Presumptive negative 10/01/17 05:43 U Benzodiazepines Scrn Presumptive negative 10/01/17 05:43 Urine Cocaine Screen Presumptive negative 10/01/17 05:43 U Marijuana (THC) Screen Presumptive positive 10/01/17 05:43 Drugs of Abuse Note Disclamer 10/01/17 05:43 Miscellaneous Test Flexitest 1 H 10/10/17 Unknown
[2017-10-25] MEDS: GLUCOPHAGE PO SCH (12:02)
[2017-10-25] MEDS: GLUCOTROL PO SCH (12:02)
[2017-10-25] MEDS: DELTASONE PO SCH (12:03)
[2017-10-25] MEDS: TENORMIN PO SCH (12:04)
[2017-10-25] MEDS: LOVENOX SUB-Q SCH (12:05)
[2017-10-25 13:12] VITALS: BP 112/72
--- NOTE | 2017-10-25 14:23 | Discharge Summary ---
Providers - Providers Date of Admission: 10/01/17 06:55 Date of discharge: 10/25/17 Attending physician: TIERNEY WEST 10/01/17 08:18 Consult to Physician [CONS] Urgent Comment: Consulting Provider: KEVAN HARDING Physician Instructions: Reason For Exam: acute CVA Occupational Therapy Evaluate and Treat [CONS] Routine Comment: Reason For Exam: Neuro deficits Physical Therapy Evaluation and Treat [CONS] Routine Comment: Reason For Exam: Neuro deficits 10/03/17 17:04 Consult to Physician [CONS] Routine Comment: Consulting Provider: ULISSES HOPKINS Physician Instructions: Reason For Exam: Acute stroke 10/04/17 14:25 Speech Therapy Evaluation and Treat [CONS] Urgent Reason For Exam: pt appears to be unable to clear secretions 10/07/17 18:17 Consult to Physician [CONS] Routine Comment: Consulting Provider: REILLY GREENE Physician Instructions: Reason For Exam: [place] lower extremity weakness/visual symptoms Primary care physician: RN CLINICAL REVIEW Hospitalization Condition: Stable Disposition: [id number]/[place]-06 HOME UNDER HOME [facility] Time spent for discharge: 32 min Core Measure Documentation - Palliative Care Palliative Care/ Comfort Measures: Not Applicable - Core Measures Any of the following diagnoses?: stroke - Stroke Discharge Requirements Statin for LDL = or >70 mg/dl on DC: Yes Anticoag for atrial fib/atrial flutter: Not Applicable (no afib/aflutter) Antithrombotic for ischemic stroke: Yes Exam - Constitutional Vitals: Temp Pulse Resp BP Pulse Ox 98.6 F 89 20 112/72 97 10/25/17 12:00 10/25/17 11:45 10/25/17 11:45 10/25/17 11:45 10/25/17 11:45 Plan Activity: advance as tolerated, fall precautions Diet: low salt Special Instructions: physical therapy, occupational therapy Additional Instructions: Fall Precautions. Physical therapy, occupational therapy Follow up with: PRIMARY CARE, [Primary Care Provider] - 3-5 Days ULISSES HOPKINS MD [Staff Physician] - 7 Days Prescriptions: Atenolol [Tenormin] 25 mg PO QDAY #30 tablet AtorvaSTATin [Lipitor] 40 mg PO QHS #30 tablet Clopidogrel [Plavix] 75 mg PO QDAY #30 tablet glipiZIDE [Glucotrol] 10 mg PO BIDDIAB #60 tablet metFORMIN [Glucophage] 500 mg PO BIDDIAB #60 tablet Polyethylene Glycol 3350 [Miralax 3350] 17 gm PO BID PRN #60 powd.pack PRN Reason: Constipation Prednisone 5 mg PO DAILY #30 tablet
== END 2017-10-25 17:00 | disposition home health service (06) | DRG 65 ==
LOC: ED 00:12 → 4A 06:55
PROVIDERS: ADMIT Internal Medicine; ATTEND Internal Medicine
PROC: 009U3ZX Drainage of Spinal Canal, Percutaneous Approach, Diagnostic (ICD-10-PCS; principal; 2017-10-10)
PROC: B01BYZZ Fluoroscopy of Spinal Cord using Other Contrast (ICD-10-PCS; 2017-10-10)
DX: I63.9 Cerebral infarction, unspecified (principal); G81.91 Hemiplegia, unspecified affecting right dominant side; E87.1 Hypo-osmolality and hyponatremia; T38.0X5A Adverse effect of glucocorticoids and synthetic analogues, initial encounter; D72.829 Elevated white blood cell count, unspecified; F17.200 Nicotine dependence, unspecified, uncomplicated; F29 Unspecified psychosis not due to a substance or known physiological condition; J45.909 Unspecified asthma, uncomplicated; D75.1 Secondary polycythemia; E83.52 Hypercalcemia; E10.22 Type 1 diabetes mellitus with diabetic chronic kidney disease; I12.9 Hypertensive chronic kidney disease with stage 1 through stage 4 chronic kidney disease, or unspecified chronic kidney disease; N18.9 Chronic kidney disease, unspecified; F12.90 Cannabis use, unspecified, uncomplicated; K52.9 Noninfective gastroenteritis and colitis, unspecified; Y92.89 Other specified places as the place of occurrence of the external cause; Z71.6 Tobacco abuse counseling; Z79.899 Other long term (current) drug therapy
CPT/HCPCS: 36415; 62270; 70450; 70544; 70551; 70553; 72146; 72148; 74176; 77003; 80048; 80053; 80061; 80307; 81001; 82607; 82747; 82947; 82962; 83036; 83735; 83916; 84100; 84160; 84443; 84484; 85007; 85025; 85027; 85610; 85670; 85730; 86140; 87116; 88112; 89051; 93005; 93010; 93306; 93880; 94760; 99406; A9270-GY; A9577; J1650; J1815; J2405; J2920; J2930; J7030; J7512